=== PATIENT | female | born 1955 | race Two or more races ===

== ENCOUNTER → 2016-11-26 | Outpatient (CLI) | payer BC ==
[2016-11-26 09:14] LABS: ABSOLUTE EOSINOPHILS # (AUTO) 0.6 10^3/uL (0.0-0.6); ABSOLUTE LYMPHOCYTES (AUTO) 2.6 10^3/uL (0.5-4.7); ABSOLUTE MONOCYTES (AUTO) 0.7 10^3/uL (0.1-1.4); ABSOLUTE NEUT (AUTO) 5.6 10^3/uL (1.7-8.2); BASOPHILS % (AUTO) 0.5 % (0-2); EOSINOPHILS % (AUTO) 5.8 % (0-6); HEMATOCRIT 36.6 % (36.0-47.0); HEMOGLOBIN 12.3 g/dL (12.0-15.5); HGB HCT DIFFERENCE 0.3; LYMPHOCYTES % (AUTO) 27.1 % (13-45); MEAN CORPUSCULAR HEMOGLOBIN 27.7 pg (27.0-33.4); MEAN CORPUSCULAR HGB CONC 33.5 g/dL (32.0-36.0); MEAN CORPUSCULAR VOLUME 83 fl (80-97); MONOCYTES % (AUTO) 7.8 % (3-13); RED BLOOD COUNT 4.42 10^6/uL (3.72-5.28); RED CELL DISTRIBUTION WIDTH 14.1 % (11.5-14.0); SEGMENTED NEUTROPHILS % (AUTO) 58.8 % (42-78); WHITE BLOOD COUNT 9.5 10^3/uL (4.0-10.5)
[2016-11-26 09:30] LABS: ALANINE AMINOTRANSFERASE 41 U/L (9-52); ALBUMIN 2.9 g/dL (3.5-5.0); ALKALINE PHOSPHATASE 154 U/L (38-126); ANION GAP 6 (5-19); ASPARTATE AMINO TRANSFERASE 26 U/L (14-36); BILIRUBIN,DIRECT 0.3 mg/dL (0.0-0.4); BILIRUBIN,TOTAL 0.4 mg/dL (0.2-1.3); BLOOD UREA NITROGEN 19 mg/dL (7-20); CALCIUM 8.9 mg/dL (8.4-10.2); CARBON DIOXIDE 31 mmol/L (22-30); CHLORIDE 103 mmol/L (98-107); CREATININE RESULT 1.13 mg/dL (0.52-1.25); Direct HDL 36 mg/dL (>40); GLUCOSE 254 mg/dL (75-110); SODIUM 139.7 mmol/L (137-145); TOTAL PROTEIN 6.5 g/dL (6.3-8.2)
[2016-11-26 09:41] LABS: DIRECT LDL 33 mg/dL (<100)
[2016-11-26 09:43] LABS: TRIGLYCERIDES 868 mg/dL (<150)
== END ==
LOC: OD 07:57
PROVIDERS: ATTEND Internal Medicine Geriatric Medicine
DX: E11.65 Type 2 diabetes mellitus with hyperglycemia (principal); E78.5 Hyperlipidemia, unspecified; I10 Essential (primary) hypertension
CPT/HCPCS: 36415; 80053; 80061; 85025

== ENCOUNTER 2018-02-06 22:09 | Emergency (ER) | payer BC ==
[2018-02-06] MEDS ORDERED: PREDNISONE 20 MG TABLET PO ONE (22:43)
[2018-02-06] MEDS ORDERED: RANITIDINE HCL SYRUP 150 MG/10 ML UDCUP PO ONE (22:43)
--- NOTE | 2018-02-06 22:44 | ER Document Report ---
ED Medical Screen (RME) - General Chief Complaint: Allergic Reaction Stated Complaint: POSSIBLE ALLERGIC REACTION Time Seen by Provider: 02/06/18 22:39 Notes: Patient was eating crabs at her house and approximately 8 PM an hour afterwards started having itching diffusely throughout her body especially on her scalp and face. Patient took 2 Benadryl approximately 30-45 minutes ago. She continues to have itching. She does have small welts on her upper bilateral extremities and her face suggestive of urticaria. She denies any tongue or lip swelling she denies any problems breathing or swallowing. She has never had this reaction before after eating crabs and cannot contributed to anything else. She has never experienced this type of reaction in the past with anything. I have greeted and performed a rapid initial assessment of this patient. A comprehensive ED assessment and evaluation of the patient, analysis of test results and completion of the medical decision making process will be conducted by additional ED providers. PHYSICAL EXAMINATION: GENERAL: Well-appearing, well-nourished and in mild distress, anxious. HEAD: Atraumatic, normocephalic. HEENT: Multiple areas of non-confluent urticaria on face. No swelling of tongue or lips with normal posterior oropharynx. EYES: Pupils equal round extraocular movements intact, conjunctiva are normal. ENT: Nares patent NECK: Normal range of motion LUNGS: No respiratory distress, no stridor or increased work of breathing Musculoskeletal: Normal range of motion NEUROLOGICAL: Normal speech, normal gait. PSYCH: Normal mood, normal affect. SKIN: Non-confluent small urticarial papules on face and upper bilateral extremities. TRAVEL OUTSIDE OF THE [place] IN LAST 30 DAYS: No - Related Data Allergies/Adverse Reactions: saxagliptin [Saxagliptin] Allergy (Intermediate, Verified 04/20/14 10:17) itching Past Medical History - Past Medical History Cardiac Medical History: Reports: Hx Hypercholesterolemia, Hx Hypertension Denies: Hx Heart Attack Pulmonary Medical History: Denies: Hx Asthma Neurological Medical History: Denies: Hx Cerebrovascular Accident, Hx Seizures Endocrine Medical History: Reports: Hx Diabetes Mellitus Type 1, Hx Diabetes Mellitus Type 2 GI Medical History: Reports: Hx Gastroesophageal Reflux Disease. Denies: Hx Hepatitis, Hx Hiatal Hernia, Hx Ulcer Psychiatric Medical History: Denies: Hx Depression Infectious Medical History: Denies: Hx Hepatitis Past Surgical History: Reports: Hx Abdominal Surgery - cholecystectomy, Hx Gynecologic Surgery - Ectopic . Denies: Hx Hysterectomy, Hx Mastectomy , Hx Open Heart Surgery, Hx Pacemaker - Immunizations Hx Diphtheria, Pertussis, Tetanus Vaccination: Yes Physical Exam - Vital signs Vitals: Temp Pulse Resp BP Pulse Ox 98.6 F 120 H 20 112/77 100 02/06/18 22:14 02/06/18 22:14 02/06/18 22:14 02/06/18 22:14 02/06/18 22:14 Course - Vital Signs Vital signs: Temp Pulse Resp BP Pulse Ox 98.6 F 120 H 20 112/77 100 02/06/18 22:14 02/06/18 22:14 02/06/18 22:14 02/06/18 22:14 02/06/18 22:14 Doctor's Discharge - Discharge Referrals: BRENT ALVAREZ MD [Primary Care Provider] - Follow up as needed
[2018-02-06] MEDS ORDERED: FAMOTIDINE 20 MG TABLET PO ONE (22:55)
[2018-02-06] MEDS ORDERED: EPINEPHRINE INJ/PF 1 MG/1 ML AMPULE IM ONE (23:51)
--- NOTE | 2018-02-07 00:04 | ER Document Report ---
ED Allergic Reaction - General Chief Complaint: Allergic Reaction Stated Complaint: POSSIBLE ALLERGIC REACTION Time Seen by Provider: 02/06/18 22:39 Notes: Patient is a 62-year-old female that comes to the emergency department for chief complaint of allergic reaction. She states she was eating crab and shortly afterwards she broke out into a rash mainly on her face and chest, also she had a lot of itching over her scalp. She states that she got a weird sensation in her throat a little while after she took the Benadryl but states that she did not have any trouble swallowing, she swallowed pills at home and here without any difficulty. She denies difficulty breathing or passing out. She took 50 mg of Benadryl, she was given 60 mg of prednisone and Pepcid along with Zantac in triage. She still has the rash on her face and a lot of itching. She denies history of the same. TRAVEL OUTSIDE OF THE [place] IN LAST 30 DAYS: No - Related Data Allergies/Adverse Reactions: saxagliptin [Saxagliptin] Allergy (Intermediate, Verified 04/20/14 10:17) itching Past Medical History - General Information source: Patient - Social History Smoking Status: Never Smoker Frequency of alcohol use: None Drug Abuse: None Lives with: Family Family History: CAD, Malignancy - mother ovarian cancer, Other - Dad- [place] @ 55 - Past Medical History Cardiac Medical History: Reports: Hx Hypercholesterolemia, Hx Hypertension Denies: Hx Heart Attack Pulmonary Medical History: Denies: Hx Asthma Neurological Medical History: Denies: Hx Cerebrovascular Accident, Hx Seizures Endocrine Medical History: Reports: Hx Diabetes Mellitus Type 2 GI Medical History: Reports: Hx Gastroesophageal Reflux Disease. Denies: Hx Hepatitis, Hx Hiatal Hernia, Hx Ulcer Psychiatric Medical History: Denies: Hx Depression Infectious Medical History: Denies: Hx Hepatitis Past Surgical History: Reports: Hx Abdominal Surgery - cholecystectomy, Hx Gynecologic Surgery - Ectopic . Denies: Hx Hysterectomy, Hx Mastectomy , Hx Open Heart Surgery, Hx Pacemaker - Immunizations Hx Diphtheria, Pertussis, Tetanus Vaccination: Yes Hx Pneumococcal Vaccination: 11/28/12 Review of Systems - Review of Systems Constitutional: No symptoms reported EENT: See HPI Cardiovascular: No symptoms reported Respiratory: No symptoms reported Gastrointestinal: No symptoms reported Genitourinary: No symptoms reported Female Genitourinary: No symptoms reported Musculoskeletal: No symptoms reported Skin: See HPI Hematologic/Lymphatic: No symptoms reported Neurological/Psychological: No symptoms reported Physical Exam - Vital signs Vitals: Temp Pulse Resp BP Pulse Ox 98.6 F 120 H 20 112/77 100 02/06/18 22:14 02/06/18 22:14 02/06/18 22:14 02/06/18 22:14 02/06/18 22:14 - Notes Notes: GENERAL: Alert, interacts well. No acute distress. HEAD: Normocephalic, atraumatic. EYES: Pupils equal, round, and reactive to light. Extraocular movements intact. ENT: Oral mucosa moist, tongue midline. Oropharyngeal exam is unremarkable, patent airway NECK: Full range of motion. Supple. Trachea midline. LUNGS: Clear to auscultation bilaterally, no wheezes, rales, or rhonchi. No respiratory distress. HEART: Regular rate and rhythm. No murmur ABDOMEN: Soft, non-tender. Non-distended. Bowel sounds present in all 4 quadrants. EXTREMITIES: Moves all 4 extremities spontaneously. No edema, normal radial and dorsalis pedis pulses bilaterally. No cyanosis. BACK: no cervical, thoracic, lumbar midline tenderness. No saddle anesthesia, normal distal neurovascular exam. NEUROLOGICAL: Alert and oriented x3. Normal speech. [cranial nerves II through XII grossly intact]. PSYCH: Normal affect, normal mood. SKIN: Urticaria noted including over the neck, chest, back, and over the face Course - Re-evaluation Re-evalutation: Patient is not tachycardic on my exam but she does have urticaria including over the face. Oral pharyngeal exam and lung exam are unremarkable. Because of the widespread rash, no improvement with antihistamines and steroids, patient was given epinephrine. Resolution of the rash occurred. Patient monitored for over 2 hours with no additional symptoms. Patient did not have anaphylaxis. Patient is requesting to go home. She declines steroids, she states she will take antihistamines, these were prescribed. Discussed close follow-up and return precautions. Patient states she return immediately if she has any return of symptoms. Stable at time of discharge. - Vital Signs Vital signs: Temp Pulse Resp BP Pulse Ox 97.8 F 120 H 18 146/65 H 98 02/07/18 02:01 02/06/18 22:14 02/07/18 02:01 02/07/18 02:01 02/07/18 02:01 Discharge - Discharge Clinical Impression: Urticaria Allergic reaction Qualifiers: Encounter type: initial encounter Qualified Code(s): T78.40XA - Allergy, unspecified, initial encounter Condition: Stable Disposition: HOME, SELF-CARE Additional Instructions: Your evaluation is consistent with an allergic reaction causing hives. Take the Zyrtec and Pepcid antihistamines for the next week. Follow-up with primary care for additional evaluation and management. I recommend that you avoid crab and probably shellfish. Return if you worsen in anyway including returned rash, difficulty breathing or swallowing, or any other concerning symptoms. Prescriptions: Cetirizine HCl [Zyrtec 10 mg Tablet] 1 tab PO DAILY #30 tablet Famotidine [Pepcid 20 mg Tablet] 20 mg PO DAILY #12 tablet Forms: Treatment of Relative/Child Referrals: BRENT ALVAREZ MD [Primary Care Provider] - Follow up as needed
[2018-02-07 02:05] VITALS: BP 146/65
== END 2018-02-07 02:02 | disposition home or self-care (01) ==
LOC: ER 22:09
DX: L50.0 Allergic urticaria (principal); I10 Essential (primary) hypertension; E11.9 Type 2 diabetes mellitus without complications; Z88.8 Allergy status to other drugs, medicaments and biological substances
CPT/HCPCS: 99283; 96372; J0171; J7512

== ENCOUNTER 2019-01-30 19:19 | Inpatient (IN) | payer SELFPAY ==
--- NOTE | 2019-01-30 20:07 | ER Document Report ---
ED Medical Screen (RME) - General Chief Complaint: Shortness Of Breath Stated Complaint: SHORTNESS OF BREATH Time Seen by Provider: 01/30/19 19:55 Primary Care Provider: BRENT ALVAREZ MD [Primary Care Provider] - Follow up as needed Notes: Patient is a 63-year-old female who presents to the emergency department with a chief complaint of shortness of breath. She states that 2 weeks ago she was in [place] went to the emergency department and was diagnosed with bilateral pleural effusions and a 9 mm pulmonary nodule in the right middle lobe per CT of the chest. Patient states that when she is sitting she does not feel short of breath, but when she is walking she feels worse and more short of breath. Patient has a past medical history of hypertension, hyperlipidemia, diabetes, and stage IV chronic kidney disease. Exam: Crackles in the bases. Patient's oxygen saturation is 90% on room air. She does not wear oxygen at home and she denies tobacco use. I have greeted and performed a rapid initial assessment of this patient. A comprehensive ED assessment and evaluation of the patient, analysis of test results and completion of medical decision making process will be conducted by an additional ED providers. TRAVEL OUTSIDE OF THE [place] IN LAST 30 DAYS: No - Related Data Allergies/Adverse Reactions: saxagliptin [Saxagliptin] Allergy (Intermediate, Verified 04/20/14 10:17) itching Past Medical History - Past Medical History Cardiac Medical History: Reports: Hx Hypercholesterolemia, Hx Hypertension Denies: Hx Heart Attack Pulmonary Medical History: Denies: Hx Asthma Neurological Medical History: Denies: Hx Cerebrovascular Accident, Hx Seizures Endocrine Medical History: Reports: Hx Diabetes Mellitus Type 1, Hx Diabetes Mellitus Type 2 Renal/ Medical History: Denies: Hx Peritoneal Dialysis GI Medical History: Reports: Hx Gastroesophageal Reflux Disease. Denies: Hx Hepatitis, Hx Hiatal Hernia, Hx Ulcer Psychiatric Medical History: Denies: Hx Depression Infectious Medical History: Denies: Hx Hepatitis Past Surgical History: Reports: Hx Abdominal Surgery - cholecystectomy, Hx Gynecologic Surgery - Ectopic . Denies: Hx Hysterectomy, Hx Mastectomy, Hx Open Heart Surgery, Hx Pacemaker - Immunizations Hx Diphtheria, Pertussis, Tetanus Vaccination: Yes Physical Exam - Vital signs Vitals: Temp Pulse Resp BP Pulse Ox 98.6 F 77 18 142/52 H 92 01/30/19 19:27 01/30/19 19:27 01/30/19 19:27 01/30/19 19:27 01/30/19 19:27 Course - Vital Signs Vital signs: Temp Pulse Resp BP Pulse Ox 98.6 F 77 18 142/52 H 92 01/30/19 19:27 01/30/19 19:27 01/30/19 19:27 01/30/19 19:27 01/30/19 19:27 Doctor's Discharge - Discharge Referrals: BRENT ALVAREZ MD [Primary Care Provider] - Follow up as needed
[2019-01-30 20:46] LABS: ABSOLUTE BASOPHILS # (AUTO) 0.1 10^3/uL (0.0-0.2); ABSOLUTE EOSINOPHILS # (AUTO) 0.5 10^3/uL (0.0-0.6); ABSOLUTE LYMPHOCYTES (AUTO) 1.8 10^3/uL (0.5-4.7); ABSOLUTE MONOCYTES (AUTO) 0.7 10^3/uL (0.1-1.4); ABSOLUTE NEUT (AUTO) 7.4 10^3/uL (1.7-8.2); BASOPHILS % (AUTO) 0.8 % (0-2); EOSINOPHILS % (AUTO) 4.6 % (0-6); HEMATOCRIT 27.4 % (36.0-47.0); LYMPHOCYTES % (AUTO) 17.1 % (13-45); MEAN CORPUSCULAR VOLUME 85 fl (80-97); MONOCYTES % (AUTO) 6.6 % (3-13); PLATELET COUNT 236 10^3/uL (150-450); RED BLOOD COUNT 3.22 10^6/uL (3.72-5.28); RED CELL DISTRIBUTION WIDTH 14.6 % (11.5-14.0); SEGMENTED NEUTROPHILS % (AUTO) 70.9 % (42-78); TOTAL CELLS COUNTED % (AUTO) 100 %; WHITE BLOOD COUNT 10.4 10^3/uL (4.0-10.5)
--- NOTE | 2019-01-30 21:14 | RADIOLOGY REPORT (SQ) ---
EXAM DESCRIPTION: XR CHEST 1 VIEW COMPLETED DATE/TME: 01/30/2019 20:04 CLINICAL HISTORY: 63 years, Female, shortness of breath COMPARISON: EXAM DESCRIPTION: CLINICAL HISTORY: shortness of breath COMPARISON: 08/13/2015 FINDINGS: Single view of the chest is submitted. There are bilateral moderate pleural effusions with consolidation and atelectasis E: Base. The heart is largely secured. The upper lungs are clear. No pneumothorax. IMPRESSION: Bilateral pleural effusions and consolidations.
[2019-01-30 21:24] LABS: ALBUMIN 3.3 g/dL (3.5-5.0); ALKALINE PHOSPHATASE 144 U/L (38-126); ANION GAP 13 (5-19); ASPARTATE AMINO TRANSFERASE 29 U/L (14-36); BILIRUBIN,DIRECT 0.2 mg/dL (0.0-0.4); BILIRUBIN,TOTAL 0.2 mg/dL (0.2-1.3); BLOOD UREA NITROGEN 45 mg/dL (7-20); CALCIUM 8.3 mg/dL (8.4-10.2); CARBON DIOXIDE 15 mmol/L (22-30); CHLORIDE 111 mmol/L (98-107); CREATINE KINASE 50 U/L (30-135); GLUCOSE 218 mg/dL (75-110); POTASSIUM 5.7 mmol/L (3.6-5.0); TOTAL PROTEIN 6.5 g/dL (6.3-8.2)
[2019-01-30 21:31] LABS: CREATINE KINASE MB 0.29 ng/mL (<4.55); NT PRO BNP 1320 pg/mL (5-900)
[2019-01-30 21:36] LABS: TROPONIN I < 0.012 ng/mL
[2019-01-30] MEDS ORDERED: FUROSEMIDE INJ/PF 40 MG/4 ML SDV IV ONE (22:30)
--- NOTE | 2019-01-30 22:32 | ER Document Report ---
ED General - General Chief Complaint: Shortness Of Breath Stated Complaint: SHORTNESS OF BREATH Time Seen by Provider: 01/30/19 19:55 TRAVEL OUTSIDE OF THE [place] IN LAST 30 DAYS: No - HPI Notes: 63-year-old female with a history of stage IV kidney disease, hypertension and diabetes presents with dyspnea. Patient describes 2 or 3 weeks of increasingly severe dyspnea, especially on exertion. Now has rest dyspnea and orthopnea. She was seen in outside emergency department [place] 2 weeks ago, states that she was told she had fluid in her lungs, pulmonary nodules and kidney failure. Ultimately followed up with her primary care doctor, was refer referred to a local charge coordinator with whom she met earlier this week and indicated they wanted to obtain a kidney biopsy, but that she would require dialysis. No fever, chills or sweats. She has had a cough for approximate 1 month. Does not travel to the [facility] or outside the country for at least 10 years. No unplanned weight loss and in fact has had a 10 or 11 pound weight gain over the last month. Moderate intensity, gradual onset, nonradiating. No other modifying factors, no other associated symptoms, no other provocative or palliative factors. - Related Data Allergies/Adverse Reactions: saxagliptin [Saxagliptin] Allergy (Intermediate, Verified 04/20/14 10:17) itching Past Medical History - Social History Smoking Status: Never Smoker Chew tobacco use (# tins/day): No Frequency of alcohol use: None Drug Abuse: None Family History: CAD, Malignancy - mother ovarian cancer, Other - Dad- [place] @ 55 Patient has suicidal ideation: No Patient has homicidal ideation: No - Medical History Notes: Includes stage IV kidney disease - Past Medical History Cardiac Medical History: Reports: Hx Hypercholesterolemia, Hx Hypertension Denies: Hx Heart Attack Pulmonary Medical History: Denies: Hx Asthma Neurological Medical History: Denies: Hx Cerebrovascular Accident, Hx Seizures Endocrine Medical History: Reports: Hx Diabetes Mellitus Type 1, Hx Diabetes Mellitus Type 2 Renal/ Medical History: Denies: Hx Peritoneal Dialysis GI Medical History: Reports: Hx Gastroesophageal Reflux Disease. Denies: Hx Hepatitis, Hx Hiatal Hernia, Hx Ulcer Psychiatric Medical History: Denies: Hx Depression Infectious Medical History: Denies: Hx Hepatitis Past Surgical History: Reports: Hx Abdominal Surgery - cholecystectomy, Hx Gynecologic Surgery - Ectopic . Denies: Hx Hysterectomy, Hx Mas tectomy, Hx Open Heart Surgery, Hx Pacemaker - Immunizations Hx Diphtheria, Pertussis, Tetanus Vaccination: Yes Hx Pneumococcal Vaccination: 11/28/12 Review of Systems - Review of Systems Notes: Review of systems as in the history of present illness, otherwise negative x 10 systems. Physical Exam - Vital signs Vitals: Temp Pulse Resp BP Pulse Ox 98.6 F 77 18 142/52 H 92 01/30/19 19:27 01/30/19 19:27 01/30/19 19:27 01/30/19 19:27 01/30/19 19:27 - Notes Notes: General: Well developed . Chronically ill in appearance HEENT: Normocephalic, atraumatic. Pupils equal round reactive to light. No JVD. Chest: No trauma. Respiratory: Scattered crackles throughout the upper half of all lung sanon. Fair air exchange. Cardiac: Regular rhythm. No murmurs or gallops. Abdomen: Soft, benign. Nondistended. Nontender. Back: No asymmetry or gross abnormality. Motor: Grossly normal power and tone. Neurologic: Alert, nonfocal. Cranial nerves II-12 are intact. Sensation intact. Vascular: Well perfused. Normal peripheral pulses. Skin: No petechiae or purpura. Course - Vital Signs Vital signs: Temp Pulse Resp BP Pulse Ox 98.6 F 77 27 H 159/66 H 95 01/30/19 19:27 01/30/19 19:27 01/30/19 22:02 01/30/19 22:02 01/30/19 22:02 - Laboratory Result Diagrams: 01/30/19 20:15 01/30/19 20:15 Laboratory results interpreted by me: 01/30/19 01/30/19 01/30/19 20:15 20:15 20:15 RBC 3.22 L Hgb 9.0 L Hct 27.4 L RDW 14.6 H Potassium 5.7 H Chloride 111 H Carbon Dioxide 15 L BUN 45 H Creatinine 4.24 H Est GFR ( Amer) 13 L Est GFR (Non-Af Amer) 11 L Glucose 218 H Calcium 8.3 L Alkaline Phosphatase 144 H NT-Pro-B Natriuret Pep 1320 H Albumin 3.3 L - Transfer of Care Notes: 01/30/19 22:38 63-year-old female who presents with worsening dyspnea and the after mentioned symptoms, appears to have evidence of volume overload. Certainly concern over w orsening renal failure and attendant metabolic complications Patient was evaluated by the [facility] provider prior to my evaluation. Studies / interventions have been ordered by this provider. Labs reviewed. CBC unremarkable. Chemistries show elevated potassium at 5.7. Bicarb depressed at 15. Troponin normal Chest x-ray shows moderate to large pleural effusions bilaterally. I was able to review some records provided by the patient showing a CTA and VQ scan done at the outside hospital [place]. There was no evidence of pulmonary embolus and at that time. She has additional labs which I do not have access to. Will attempt to obtain old records. Otherwise patient has a worsening metabolic acidosis, acute hyperkalemia, and clinical evidence of volume overload. Case is discussed with the on-call physician Dr. Blanco who will admit her for further evaluation and management. At his request I have consulted nephrology who I am told are available tomorrow. Patient was given IV Lasix at the request of Dr. Blanco. Discharge - Discharge Clinical Impression: Hyperkalemia Condition: Serious Disposition: ADMITTED INPATIENT Admitting Provider: [facility] Unit Admitted: [facility]
[2019-01-30] MEDS ORDERED: ACETAMINOPHEN 325 MG TABLET PO PRN (22:35)
[2019-01-30] MEDS ORDERED: IPRATROPIUM/ALBUTEROL 0.5-2.5 MG/3 ML AMPUL NEB PRN (22:35)
[2019-01-30] MEDS ORDERED: DEXTROSE 40% GEL 15 GM TUBE PO PRN ×4 (22:46→22:47)
[2019-01-30] MEDS ORDERED: DEXTROSE 50%-WATER 25 GM/50 ML DISP.SYRIN IV PRN ×4 (22:46→22:47)
[2019-01-30] MEDS ORDERED: GLUCAGON,HUMAN RECOMB 1 MG INJ IM PRN ×2 (22:46→22:47)
[2019-01-30] MEDS ORDERED: HYDRALAZINE HCL INJ/PF 20 MG/1 ML SDV IV PRN (22:48)
[2019-01-30] MEDS ORDERED: SODIUM POLYSTYRENE SULFONATE 15 GM/60 ML PO ONE (23:59)
[2019-01-30] MEDS ORDERED: CALCIUM GLUCONATE 1000 MG/10 ML INJ IV ONE (23:59)
[2019-01-31 04:42] LABS: ABSOLUTE EOSINOPHILS # (AUTO) 0.5 10^3/uL (0.0-0.6); ABSOLUTE LYMPHOCYTES (AUTO) 2.1 10^3/uL (0.5-4.7); ABSOLUTE MONOCYTES (AUTO) 0.7 10^3/uL (0.1-1.4); ABSOLUTE NEUT (AUTO) 5.5 10^3/uL (1.7-8.2); BASOPHILS % (AUTO) 0.4 % (0-2); HEMATOCRIT 27.8 % (36.0-47.0); HEMOGLOBIN 9.1 g/dL (12.0-15.5); LYMPHOCYTES % (AUTO) 23.3 % (13-45); MEAN CORPUSCULAR HEMOGLOBIN 27.7 pg (27.0-33.4); MEAN CORPUSCULAR HGB CONC 32.8 g/dL (32.0-36.0); MEAN CORPUSCULAR VOLUME 85 fl (80-97); MONOCYTES % (AUTO) 7.5 % (3-13); PLATELET COUNT 227 10^3/uL (150-450); RED BLOOD COUNT 3.29 10^6/uL (3.72-5.28); RED CELL DISTRIBUTION WIDTH 14.8 % (11.5-14.0); SEGMENTED NEUTROPHILS % (AUTO) 62.8 % (42-78); TOTAL CELLS COUNTED % (AUTO) 100 %; WHITE BLOOD COUNT 8.8 10^3/uL (4.0-10.5)
[2019-01-31 05:11] LABS: ANION GAP 10 (5-19); BLOOD UREA NITROGEN 43 mg/dL (7-20); CALCIUM 8.9 mg/dL (8.4-10.2); CARBON DIOXIDE 19 mmol/L (22-30); CHLORIDE 113 mmol/L (98-107); GLUCOSE 112 mg/dL (75-110)
[2019-01-31] MEDS: FUROSEMIDE INJ/PF 20 MG/2 ML SDV IV SCH ×3 (05:33→21:29)
[2019-01-31] MEDS: HEPARIN SOD (PORCINE) 5,000 UNIT/ML 1 ML VIAL SUBCUT SCH ×3 (05:33→21:28)
--- NOTE | 2019-01-31 06:42 | EKG REPORT ---
SEVERITY:- BORDERLINE ECG - SINUS RHYTHM BORDERLINE R WAVE PROGRESSION, ANTERIOR LEADS : Confirmed by: Ruddy Mcallister MD 31-Jan-2019 06:41:33
[2019-01-31] MEDS: INSULIN LISPRO 100 UNIT/ML 3 ML VIAL SUBCUT SCH ×4 (08:00→21:29)
[2019-01-31] MEDS: DOCUSATE SODIUM 100 MG CAPSULE PO SCH ×2 (10:14→18:40)
--- NOTE | 2019-01-31 16:04 | PDOC CONSULTATION ---
Consultation Consult Date: 01/31/19 Provider Consulted: Dre HUA Consult reason:: MARIAJOSE on CKD 4 History of Present Illness Admission Date/PCP: 01/30/19 22:35 BRENT ALVAREZ History of Present Illness: SHAILESH SALINAS I is a 63 year old [place] female with a long-standing history of poorly controlled diabetes mellitus, hypertension, hyperlipidemia, obstructive sleep apnea, nephrotic syndrome was admitted with history of progressive shortness of breath on exertion. She denies any history of chest pains. She has been living in [place] for the last 20+ years. She saw Dr. Clark around [id number] for nephrotic syndrome with a general range of around 6000 mg per 24 hours. Advised renal biopsy to confirm whether it was diabetic nephropathy or whether there was any nephritis. Patient refused to have the biopsy. She was then lost to follow-up. Approximately 2 weeks ago she went to [place] to visit her ex- and was hospitalized there for apparently shortness of breath. This patient is finally began to see Dr. Clark's on the eighth of this month after long hiatus from 2015. As per the son who are accompanied his mother, the patient had multiple tests which included a CT angiogram, echo prior to her discharge. At that time her in hospital BUN/creatinine was 59/4.3. I am unsure if these labs were done before or after the CT angiogram. Her BUN/creatinine June 2017 was 25/1.2. Patient feels somewhat better since hospitalization. She can admits to having generalized edema. No history of being on any NSAIDs. She has alteration of bowels.Labs and medications were reviewed. She has been begun on IV Lasix. Chest x-ray shows bilateral effusions with possible bilateral consolidation. Past Medical History Cardiac Medical History: Reports: Hyperlipidemia, Hypertension-primary Denies: Myocardial Infarction Pulmonary Medical History: Reports: Sleep Apnea Denies: Asthma Neurological Medical History: Denies: Seizures Endocrine Medical History: Reports: Diabetes Mellitus Type 2 Renal/ Medical History: Reports: Chronic Kidney Disease Stage IV, Secondary Hyperparathyroidism GI Medical History: Reports: Gastroesophageal Reflux Disease Denies: Hepatitis, Hiatal Hernia Psychiatric Medical History: Denies: Depression Past Surgical History Past Surgical History: Denies: Hysterectomy, Mastectomy, Pacemaker Social History Smoking Status: Never Smoker Frequency of Alcohol Use: None Hx Recreational Drug Use: No Drugs: None Hx Prescription Drug Abuse: No - Advance Directive Resuscitation Status: Full Code Family History Parental Family History Reviewed: Yes - Negative for ESRD Children Family History Reviewed: No Sibling(s) Family History Reviewed.: No Medication/Allergy Home Medications: Metoprolol Succinate [Toprol Xl] 50 mg PO DAILY 11/28/12 Folic Acid/Multivit-Min/Lutein [Centrum Silver Chewable Tablet] 1 tab.chew PO DAILY 04/15/14 Atorvastatin Calcium [Lipitor 40 mg Tablet] 40 mg PO DAILY #0 tablet 08/14/15 Amlodipine Besylate [Norvasc 10 mg Tablet] 10 mg PO DAILY 01/31/19 Amox Tr/Potassium Clavulanate [Augmentin 500-125 Tablet] 1 tab PO Q12 01/31/19 Aspirin [Ecotrin 81 mg EC Tablet] 81 mg PO DAILY 01/31/19 Benzonatate [Tessalon Perles 100 mg Capsule] 100 mg PO Q8HP PRN 01/31/19 Ranitidine HCl 150 mg PO BID 01/31/19 Terazosin HCl [Hytrin] 5 mg PO QHS 01/31/19 Allergies/Adverse Reactions: crab Allergy (Intermediate, Verified 01/31/19 04:24) saxagliptin [Saxagliptin] Allergy (Intermediate, Verified 04/20/14 10:17) itching Review of Systems Constitutional: PRESENT: anorexia, fatigue, weakness. ABSENT: chills, fever(s), headache(s), night sweats Ears: ABSENT: hearing changes Nose, Mouth, and Throat: ABSENT: mouth pain, sore throat Cardiovascular: PRESENT: dyspnea on exertion, edema. ABSENT: chest pain, orthr opnea, palpitations Respiratory: PRESENT: dyspnea. ABSENT: cough, hemoptysis Gastrointestinal: PRESENT: constipation, diarrhea. ABSENT: abdominal pain, coffee ground emesis, dysphagia, heartburn, hematemesis, hematochezia Genitourinary: ABSENT: difficulty urinating, dysuria, hematuria Musculoskeletal: ABSENT: deformity, joint swelling Integumentary: ABSENT: erythema, lesions, pruritus, rash Neurological: PRESENT: numbness. ABSENT: abnormal speech, confusion, convulsions, focal weakness, frequent falls Endocrine: ABSENT: heat intolerance, polydipsia Hematologic/Lymphatic: ABSENT: easy bleeding, easy bruising, lymphadenopathy Physical Exam Vital Signs: Temp Pulse Resp BP Pulse Ox 98.9 F 72 16 155/59 H 96 01/31/19 10:53 01/31/19 13:26 01/31/19 13:26 01/31/19 10:53 01/31/19 13:26 Intake & Output 01/30/19 01/31/19 02/01/19 06:59 06:59 06:59 Intake Total 180 560 Output Total 800 Balance -620 560 Weight 78.5 kg General appearance: PRESENT: no acute distress Eye exam: PRESENT: EOMI, PERRLA Mouth exam: PRESENT: moist, neck supple Neck exam: ABSENT: lymphadenopathy, meningismus, tenderness, thyromegaly, tracheal deviation Respiratory exam: PRESENT: clear to auscultation marge, decreased breath sounds. ABSENT: crackles Cardiovascular exam: PRESENT: +S1, +S2 GI/Abdominal exam: PRESENT: normal bowel sounds, soft. ABSENT: organomegaly, tenderness Extremities exam: PRESENT: +1 edema Neurological exam: PRESENT: alert, awake, oriented to person, oriented to place, oriented to time Skin exam: PRESENT: rash. ABSENT: cyanosis, erythema, mottled Results Laboratory Results: 01/31/19 03:58 01/31/19 03:58 01/30/19 01/30/19 01/31/19 20:15 20:15 03:58 WBC 10.4 8.8 RBC 3.22 L 3.29 L Hgb 9.0 L 9.1 L Hct 27.4 L 27.8 L MCV 85 85 MCH 28.0 27.7 MCHC 33.0 32.8 RDW 14.6 H 14.8 H Plt Count 236 227 Seg Neutrophils % 70.9 62.8 Lymphocytes % 17.1 23.3 Monocytes % 6.6 7.5 Eosinophils % 4.6 6.0 Basophils % 0.8 0.4 Absolute Neutrophils 7.4 5.5 Absolute Lymphocytes 1.8 2.1 Absolute Monocytes 0.7 0.7 Absolute Eosinophils 0.5 0.5 Absolute Basophils 0.1 0.0 Sodium 138.8 Potassium 5.7 H Chloride 111 H Carbon Dioxide 15 L Anion Gap 13 BUN 45 H Creatinine 4.24 H Est GFR ( Amer) 13 L Est GFR (Non-Af Amer) 11 L Glucose 218 H Calcium 8.3 L Magnesium 2.0 Total Bilirubin 0.2 AST 29 Alkaline Phosphatase 144 H Total Protein 6.5 Albumin 3.3 L 01/31/19 03:58 WBC RBC Hgb Hct MCV MCH MCHC RDW Plt Count Seg Neutrophils % Lymphocytes % Monocytes % Eosinophils % Basophils % Absolute Neutrophils Absolute Lymphocytes Absolute Monocytes Absolute Eosinophils Absolute Basophils Sodium 141.6 Potassium 5.0 Chloride 113 H Carbon Dioxide 19 L Anion Gap 10 BUN 43 H Creatinine 4.18 H Est GFR ( Amer) 13 L Est GFR (Non-Af Amer) 11 L Glucose 112 H Calcium 8.9 Magnesium Total Bilirubin AST Alkaline Phosphatase Total Protein Albumin 01/30/19 01/30/19 20:15 20:15 Creatine Kinase 50 CK-MB (CK-2) 0.29 Troponin I < 0.012 NT-Pro-B Natriuret Pep 1320 H Impressions: Chest X-Ray 01/30/19 20:04 IMPRESSION: Bilateral pleural effusions and consolidations. Assessment & Plan - Diagnosis (1) MARIAJOSE (acute kidney injury) Plan: Patient has apparently presented in MARIAJOSE stage with a BUN/creatinine around 4-4.5 approximately 2 weeks ago when she was hospitalized in [place]. Presently renal functions seems to be stable compared to her presentation 2 weeks ago. The etiology of this worsening is at the moment indeterminate. The question is whether this is a progressive worsening of her diabetic nephropathy or is there additional disorders like nephritis/contrast nephropathy etc. This is to be determined. Currently she is in fluid overload most likely from her nephrotic syndrome along with bilateral pleural effusions. The pleural effusions with possible consolidation if there is could be a cause of her shortness of breath. Also to be determined is whether she has an element of congestive heart failure which is not very clear on her chest x-ray though. Will treat her conservatively at the moment. I do not see any acute indications for initiation of renal replacements currently. Get additional labs including a renal ultrasound.We will continue to monitor. (2) CKD stage 4 due to type 2 diabetes mellitus Plan: Unsure if the current BUN/creatinine has been present for a while which we do not know as we initially got wind of present renal numbers when she was admitted to [place]. Prior to that she has not been seeing any physicians apparently for a long time. This could very well be diabetic nephropathy given her poorly controlled diabetes mellitus. Watch it carefully. Get additional labs. Monitor. (3) Nephrotic syndrome Plan: Will quantify and monitor. Later consider using a raas vincent at some point once her potassium is better. (4) Renal osteodystrophy Plan: Get labs. (5) Metabolic acidosis Plan: Monitor for now. (6) Anemia Plan: Initiate evaluation and studies. No evidences to indicate GI bleed. (7) Pleural effusion Plan: Need to determine if this is part of nephrotic syndrome or whether that this is a parapneumonic effusion. (8) Hyperkalemia Plan: Presently stable. Monitor. (9) HTN (hypertension) Plan: Lately controlled. Continue titration. Avoid raas vincent for now. (10) Type 2 diabetes mellitus Plan: Was poorly controlled but of lately apparently is getting better.
--- NOTE | 2019-01-31 23:35 | PDOC H&P ---
History of Present Illness Admission Date/PCP: 01/30/19 22:35 BRENT OSSPRINGBuffy Patient complains of: Difficulty with breathing History of Present Illness: SHAILESH SALINAS I is a 63 year old female known to my practice who has been travelling with spouse and missing out on medical follow up for several months. She presented to the ED with worsening difficulty with breathing that progressed over the last two weeks from exertional to at rest. She denied any chest pain, palpitation, or irregular heart beats. She recently diagnosed with renal failure of undetermined duration with elevated serum creatinine, worsening BUN, and eGFR while travelling with spouse in [place]. She was evaluated in the office recently with review of her record from hospitalization in [place] that suggested progressive chronic kidney failure. She represented to the ED with worsening difficulty with breathing. Her initial evaluation did revealed CKD stage 5 with hyperkalemia, bilateral pleural effusion, pulmonary edema, metabolic acidosis. She denied any coughing, fever, chills, nausea, vomiting, or abdominal pain. Her morbidities include hypertension, hyperlipidemia, Diabetes mellitus type 2, and GERD. She was advised hospitalization for further evaluation and management. Past Medical History Cardiac Medical History: Reports: Hyperlipidema, Hypertension Denies: Myocardial Infarction Pulmonary Medical History: Denies: Asthma Neurological Medical History: Denies: Seizures Endocrine Medical History: Reports: Diabetes Mellitus Type 1, Diabetes Mellitus Type 2 GI Medical History: Reports: Gastroesophageal Reflux Disease Denies: Hepatitis, Hiatal Hernia Psychiatric Medical History: Denies: Depression Hematology: Denies: Anemia, Sickle Cell Disease Past Surgical History Past Surgical History: Denies: Amputation, Hysterectomy, Mastectomy, Pacemaker Social History Smoking Status: Never Smoker Frequency of Alcohol Use: None Hx Recreational Drug Use: No Drugs: None Hx Prescription Drug Abuse: No - Advance Directive Resuscitation Status: Full Code Family History Family History: CAD, Malignancy - mother ovarian cancer, Other - Dad- [place] @ 55 Parental Family History Reviewed: Yes Children Family History Reviewed: Yes Sibling(s) Family History Reviewed.: Yes Medication/Allergy Home Medications: Metoprolol Succinate [Toprol Xl] 50 mg PO DAILY 11/28/12 Folic Acid/Multivit-Min/Lutein [Centrum Silver Chewable Tablet] 1 tab.chew PO DAILY 04/15/14 Atorvastatin Calcium [Lipitor 40 mg Tablet] 40 mg PO DAILY #0 tablet 08/14/15 Amlodipine Besylate [Norvasc 10 mg Tablet] 10 mg PO DAILY 01/31/19 Amox Tr/Potassium Clavulanate [Augmentin 500-125 Tablet] 1 tab PO Q12 01/31/19 Aspirin [Ecotrin 81 mg EC Tablet] 81 mg PO DAILY 01/31/19 Benzonatate [Tessalon Perles 100 mg Capsule] 100 mg PO Q8HP PRN 01/31/19 Ranitidine HCl 150 mg PO BID 01/31/19 Terazosin HCl [Hytrin] 5 mg PO QHS 01/31/19 Allergies/Adverse Reactions: crab Allergy (Intermediate, Verified 01/31/19 04:24) saxagliptin [Saxagliptin] Allergy (Intermediate, Verified 04/20/14 10:17) itching Review of Systems Constitutional: PRESENT: as per HPI, fatigue, weakness, weight gain. ABSENT: anorexia, chills, fever(s), headache(s), night sweats Eyes: ABSENT: visual disturbances Ears: ABSENT: hearing changes Nose, Mouth, and Throat: ABSENT: as per HPI, headache(s), mouth pain, sore throat, vertigo, other Cardiovascular: PRESENT: dyspnea on exertion, edema, orthropnea. ABSENT: chest pain, palpitations Respiratory: PRESENT: dyspnea. ABSENT: cough, hemoptysis, sputum Gastrointestinal: ABSENT: abdominal pain, constipation, diarrhea, hematemesis, hematochezia, nausea, vomiting Genitourinary: ABSENT: difficulty urinating, dysuria, hematuria, nocturia Musculoskeletal: ABSENT: joint swelling Integumentary: ABSENT: rash, wounds Neurological: ABSENT: abnormal gait, abnormal speech, confusion, dizziness, focal weakness, syncope Psychiatric: ABSENT: anxiety, depression, homidical ideation, suicidal ideation Endocrine: ABSENT: cold intolerance, heat intolerance, polydipsia, polyuria Hematologic/Lymphatic: ABSENT: easy bleeding, easy bruising, lymphadenopathy Allergic/Immunologic: ABSENT: seasonal rhinorrhea Physical Exam Vital Signs: Temp Pulse Resp BP Pulse Ox 98.6 F 74 22 H 141/50 H 97 01/31/19 03:20 01/31/19 03:20 01/31/19 03:20 01/31/19 03:20 01/31/19 03:20 Intake & Output 01/30/19 01/31/19 02/01/19 06:59 06:59 06:59 Intake Total 180 Output Total 800 Balance -620 Weight 78.5 kg General appearance: PRESENT: mild distress - with shortnerss of breath Head exam: PRESENT: atraumatic, normocephalic Eye exam: PRESENT: conjunctiva pink, EOMI, PERRLA. ABSENT: scleral icterus Ear exam: PRESENT: normal external ear exam Mouth exam: PRESENT: moist Teeth exam: PRESENT: poor dentation Throat exam: ABSENT: post pharyngeal erythema, tonsillar erythema, tonsillar exudate, tonsillogmegaly, other Neck exam: PRESENT: full ROM. ABSENT: carotid bruit, JVD, lymphadenopathy, thyromegaly Respiratory exam: PRESENT: clear to auscultation marge, decreased breath sounds - at lung bases Cardiovascular exam: PRESENT: RRR. ABSENT: diastolic murmur, rubs, systolic murmur Pulses: PRESENT: +1 pedal pulses bilateral Vascular exam: PRESENT: normal capillary refill. ABSENT: pallor GI/Abdominal exam: PRESENT: normal bowel sounds, soft. ABSENT: distended, guarding, mass, organolmegaly, rebound, tenderness Rectal exam: PRESENT: deferred Extremities exam: PRESENT: pedal edema Musculoskeletal exam: PRESENT: deformity - related to joints involvement with arthritis Neurological exam: PRESENT: alert, awake, oriented to person, oriented to place, oriented to time, oriented to situation, CN II-XII grossly intact. ABSENT: motor sensory deficit Psychiatric exam: PRESENT: appropriate affect, normal mood. ABSENT: homicidal ideation, suicidal ideation Skin exam: PRESENT: dry, intact, warm. ABSENT: cyanosis, rash Results Laboratory Results: 01/31/19 03:58 01/31/19 03:58 01/30/19 01/30/19 01/31/19 20:15 20:15 03:58 WBC 10.4 8.8 RBC 3.22 L 3.29 L Hgb 9.0 L 9.1 L Hct 27.4 L 27.8 L MCV 85 85 MCH 28.0 27.7 MCHC 33.0 32.8 RDW 14.6 H 14.8 H Plt Count 236 227 Seg Neutrophils % 70.9 62.8 Lymphocytes % 17.1 23.3 Monocytes % 6.6 7.5 Eosinophils % 4.6 6.0 Basophils % 0.8 0.4 Absolute Neutrophils 7.4 5.5 Absolute Lymphocytes 1.8 2.1 Absolute Monocytes 0.7 0.7 Absolute Eosinophils 0.5 0.5 Absolute Basophils 0.1 0.0 Sodium 138.8 Potassium 5.7 H Chloride 111 H Carbon Dioxide 15 L Anion Gap 13 BUN 45 H Creatinine 4.24 H Est GFR ( Amer) 13 L Est GFR (Non-Af Amer) 11 L Glucose 218 H Calcium 8.3 L Magnesium 2.0 Total Bilirubin 0.2 AST 29 Alkaline Phosphatase 144 H Total Protein 6.5 Albumin 3.3 L 01/31/19 03:58 WBC RBC Hgb Hct MCV MCH MCHC RDW Plt Count Seg Neutrophils % Lymphocytes % Monocytes % Eosinophils % Basophils % Absolute Neutrophils Absolute Lymphocytes Absolute Monocytes Absolute Eosinophils Absolute Basophils Sodium 141.6 Potassium 5.0 Chloride 113 H Carbon Dioxide 19 L Anion Gap 10 BUN 43 H Creatinine 4.18 H Est GFR ( Amer) 13 L Est GFR (Non-Af Amer) 11 L Glucose 112 H Calcium 8.9 Magnesium Total Bilirubin AST Alkaline Phosphatase Total Protein Albumin 01/30/19 01/30/19 20:15 20:15 Creatine Kinase 50 CK-MB (CK-2) 0.29 Troponin I < 0.012 NT-Pro-B Natriuret Pep 1320 H Impressions: Chest X-Ray 01/30/19 20:04 IMPRESSION: Bilateral pleural effusions and consolidations. Assessment & Plan - Diagnosis (1) MARIAJOSE (acute kidney injury) Is this a current diagnosis for this admission?: Yes Plan: Unclear cause of her recent worsening but possible fluid redistribution with bilateral pleural effusion and associated hypotension. We will obtain renal ultrasound and urinalysis for further evaluation. (2) CKD stage 4 due to type 2 diabetes mellitus Is this a current diagnosis for this admission?: Yes Plan: Her record from hospitalizations in [place] suggested CKD that may be due to poorly controlled diabetes mellitus type 2. She was seen recently by Dr Clark, social media editor. I will request inpatient consultation with consideration for any need of replacement therapy. (3) Hyperkalemia Is this a current diagnosis for this admission?: Yes Plan: Patient is showing some improvement since admission and initial treatment. Continue cardiac monitoring and serum potassium level. Avoid NSAID and other medication that can elevated hyperkalemia. (4) Metabolic acidosis Is this a current diagnosis for this admission?: Yes Plan: Probable due to her ongoing renal failure. Continue current management with some improvement. Follow up on nephrology oim consultant input. (5) Pleural effusion Is this a current diagnosis for this admission?: Yes Plan: Patient reported improvement with diuretic treatment and positional adjustment as well as supplemental oxygen usage. Her effusion maybe multi-factorial including cardiac decompensation and renal failure. Her elevated NT-Pro BNP may be worse than suggested due to her renal failure. We will obtain echocardiogram evaluation. (6) Anemia Qualifiers: Anemia type: due to chronic kidney disease Chronic kidney disease stage: stage 4 (severe) Qualified Code(s): N18.4 - Chronic kidney disease, stage 4 (severe); D63.1 - Anemia in chronic kidney disease Is this a current diagnosis for this admission?: Yes Plan: Most likely due to chronic kidney disease. Obtain anemia workup for further insight. No need for transfusion at this time. (7) Type 2 diabetes mellitus Qualifiers: Diabetes mellitus middle or intermediate school principal insulin use: with senior living use Diabetes mellitus complication status: with kidney complications Diabetes mellitus complication detail: with chronic kidney disease Chronic kidney disease stage: stage 4 (severe) Qualified Code(s): E11.22 - Type 2 diabetes mellitus with diabetic chronic kidney disease; N18.4 - Chronic kidney disease, stage 4 (severe); Z79.4 - intermediate (current) use of insulin Is this a current diagnosis for this admission?: Yes Plan: Maintain on humalog insulin sliding scale coverage on [facility]. (8) HTN (hypertension) Qualifiers: Hypertension type: essential hypertension Qualified Code(s): I10 - Essential (primary) hypertension Is this a current diagnosis for this admission?: Yes Plan: Maintain on IV Furosemide for dual benefit for renal failure and cardiac decompensation. (9) HLD (hyperlipidemia) Qualifiers: Hyperlipidemia type: unspecified Qualified Code(s): E78.5 - Hyperlipidemia, unspecified Is this a current diagnosis for this admission?: Yes Plan: Continue preadmission medication management. (10) GERD (gastroesophageal reflux disease) Qualifiers: Esophagitis presence: esophagitis presence not specified Qualified Code(s): K21.9 - Gastro-esophageal reflux disease without esophagitis Is this a current diagnosis for this admission?: Yes Plan: Maintain on Protonix for PUD prophylaxis therapy. - Time Time Spent: 50 to 70 Minutes Medications reviewed and adjusted accordingly: Yes Anticipated discharge: Home with Homehealth Within: Other - Inpatient Certification Based on my medical assessment, after consideration of the patient's comorbidities, presenting symptoms, or acuity I expect that the services needed warrant INPATIENT care.: Yes I certify that my determination is in accordance with my understanding of Medicare's requirements for reasonable and necessary INPATIENT services [42 CFR 412.3e].: Yes Medical Necessity: Significant Comorbidiites Make Outpatient Treatment Too Risky, Need Close Monitoring Due to Risk of Patient Decompensation, Need For Continuous Telemetry Monitoring, Risk of Complication if Not Cared For in Hospi magaly, Risk of Diagnosis Which Will Require Inpatient Eval/Care/Monitoring Post Hospital Care: D/C [employer] [place] Documentation - Plan Summary Plan Summary: See admitting attending physician orders for details about care plan.
[2019-02-01 03:31] LABS: APPEARANCE,URINE CLEAR; BILIRUBIN,URINE NEGATIVE (NEGATIVE); COLOR,URINE COLORLESS; GLUCOSE, URINE NEGATIVE (NEGATIVE); KETONES,URINE NEGATIVE (NEGATIVE); LEUKOCYTE ESTERASE,URINE NEGATIVE (NEGATIVE); NITRITE,URINE NEGATIVE (NEGATIVE); PROTEIN,URINE 100 mg/dL (NEGATIVE); URINE SPECIFIC GRAVITY 1.006; UROBILINOGEN,URINE NEGATIVE mg/dL (<2.0)
[2019-02-01 05:31] LABS: UR PRO/CREAT RATIO RESULT 5.9 mg/mg (0.0-0.2); URINE CREATININE 27.5 mg/dL (15-278); URINE PROTEIN 162.7 mg/dL (<12)
[2019-02-01] MEDS: FUROSEMIDE INJ/PF 20 MG/2 ML SDV IV SCH ×3 (05:49→21:17)
[2019-02-01] MEDS: HEPARIN SOD (PORCINE) 5,000 UNIT/ML 1 ML VIAL SUBCUT SCH ×3 (05:50→21:17)
[2019-02-01 05:52] LABS: ABSOLUTE BASOPHILS # (AUTO) 0.1 10^3/uL (0.0-0.2); ABSOLUTE EOSINOPHILS # (AUTO) 0.6 10^3/uL (0.0-0.6); ABSOLUTE LYMPHOCYTES (AUTO) 2.3 10^3/uL (0.5-4.7); ABSOLUTE MONOCYTES (AUTO) 0.5 10^3/uL (0.1-1.4); ABSOLUTE NEUT (AUTO) 5.2 10^3/uL (1.7-8.2); ABSOLUTE RETICS # 0.056 10^6/uL (0.028-0.122); BASOPHILS % (AUTO) 0.6 % (0-2); EOSINOPHILS % (AUTO) 6.8 % (0-6); HEMATOCRIT 29.2 % (36.0-47.0); HEMOGLOBIN 9.6 g/dL (12.0-15.5); LYMPHOCYTES % (AUTO) 26.1 % (13-45); MEAN CORPUSCULAR HEMOGLOBIN 27.4 pg (27.0-33.4); MEAN CORPUSCULAR VOLUME 83 fl (80-97); MONOCYTES % (AUTO) 6.2 % (3-13); PLATELET COUNT 238 10^3/uL (150-450); RED BLOOD COUNT 3.51 10^6/uL (3.72-5.28); RED CELL DISTRIBUTION WIDTH 14.8 % (11.5-14.0); RETICULOCYTE COUNT (AUTO) 1.59 % (0.66-2.85); SEGMENTED NEUTROPHILS % (AUTO) 60.3 % (42-78); TOTAL CELLS COUNTED % (AUTO) 100 %; WHITE BLOOD COUNT 8.6 10^3/uL (4.0-10.5)
[2019-02-01] MEDS: HYDRALAZINE HCL 10 MG TABLET PO SCH ×3 (06:00→21:17)
[2019-02-01] MEDS ORDERED: HYDRALAZINE HCL 25 MG TABLET PO SCH (06:00)
[2019-02-01] MEDS: ISOSORBIDE DINITRATE 20 MG TABLET PO SCH ×3 (06:00→21:17)
[2019-02-01 06:06] LABS: ANION GAP 9 (5-19); BLOOD UREA NITROGEN 45 mg/dL (7-20); CALCIUM 8.6 mg/dL (8.4-10.2); CARBON DIOXIDE 23 mmol/L (22-30); CHLORIDE 108 mmol/L (98-107); GLUCOSE 101 mg/dL (75-110); IRON(TIBC) 25.7 ug/dL (37-170); POTASSIUM 4.6 mmol/L (3.6-5.0)
[2019-02-01 07:15] LABS: FOLATE > 20.00 ng/mL (>2.76)
--- NOTE | 2019-02-01 08:33 | RADIOLOGY REPORT (SQ) ---
EXAM DESCRIPTION: U/S RETROPERITON (RENAL/AORTA) COMPLETED DATE/TIME: 01/31/2019 10:51 pm REASON FOR STUDY: MARIAJOSE COMPARISON: 04/20/2014 TECHNIQUE: Dynamic and static grayscale images acquired of the kidneys and bladder and recorded on P ACS. Additional selected color Doppler and spectral images recorded. LIMITATIONS: None. FINDINGS: RIGHT KIDNEY: Normal size measuring 11.4 cm. Increased echogenicity. No solid or suspicio us masses. No hydronephrosis. No calcifications. LEFT KIDNEY: Normal size measuring 11.5 cm. Increased echogenicity. There is a 3.2 cm simple appea ring cyst along the upper pole. No solid or suspicious masses. No hydronephrosis. No calcifications. BLADDER: No masses. OTHER FINDINGS: No other significant finding. IMPRESSION: No hydronephrosis. Increased cortical echogenicity which can be seen with medical renal disease. 3.2 cm left upper pole cyst. TECHNICAL DOCUMENTATION: JOB ID: [id number] [employer]- All Rights Reserved Reading location - IP/workstation name: [email or web address]
[2019-02-01] MEDS: INSULIN LISPRO 100 UNIT/ML 3 ML VIAL SUBCUT SCH ×4 (10:50→21:16)
[2019-02-01] MEDS: FAMOTIDINE 20 MG TABLET PO SCH (10:52)
[2019-02-01] MEDS: DOCUSATE SODIUM 100 MG CAPSULE PO SCH ×2 (10:52→17:18)
--- NOTE | 2019-02-01 18:46 | PDOC PROGRESS REPORT ---
Subjective Progress Note for:: 02/01/19 Subjective:: Patient reported feeling better and able to sleep in supine position. Ambulate in her room without difficulty. Reason For Visit: RENAL FAILURE Physical Exam Vital Signs: Temp Pulse Resp BP Pulse Ox 98.8 F 73 16 135/56 H 98 02/01/19 07:41 02/01/19 07:41 02/01/19 07:41 02/01/19 07:41 02/01/19 07:41 Intake & Output 01/31/19 02/01/19 02/02/19 06:59 06:59 06:59 Intake Total 180 860 Output Total 800 4075 Balance -620 -3215 Weight 78.5 kg 77 kg General appearance: PRESENT: obese Head exam: PRESENT: atraumatic, normocephalic Eye exam: PRESENT: conjunctiva pink. ABSENT: scleral icterus Ear exam: PRESENT: normal external ear exam Mouth exam: PRESENT: moist Teeth exam: PRESENT: poor dentation Respiratory exam: PRESENT: clear to auscultation marge, decreased breath sounds Cardiovascular exam: PRESENT: RRR, +S1, +S2. ABSENT: diastolic murmur, rubs, systolic murmur Vascular exam: ABSENT: pallor GI/Abdominal exam: PRESENT: normal bowel sounds, soft. ABSENT: distended, guarding, mass, organolmegaly, rebound, tenderness Extremities exam: ABSENT: pedal edema Neurological exam: PRESENT: alert, awake, oriented to person, oriented to place, oriented to time, oriented to situation, CN II-XII grossly intact. ABSENT: motor sensory deficit Psychiatric exam: PRESENT: appropriate affect, normal mood. ABSENT: homicidal ideation, suicidal ideation Skin exam: PRESENT: dry, warm Results Laboratory Results: 02/01/19 05:17 02/01/19 05:17 02/01/19 02/01/19 02/01/19 03:15 05:17 05:17 WBC 8.6 RBC 3.51 L Hgb 9.6 L Hct 29.2 L MCV 83 MCH 27.4 MCHC 33.0 RDW 14.8 H Plt Count 238 Seg Neutrophils % 60.3 Lymphocytes % 26.1 Monocytes % 6.2 Eosinophils % 6.8 H Basophils % 0.6 Absolute Neutrophils 5.2 Absolute Lymphocytes 2.3 Absolute Monocytes 0.5 Absolute Eosinophils 0.6 Absolute Basophils 0.1 Retic Count (auto) 1.59 Absolute Retic 0.056 Sodium 139.5 Potassium 4.6 Chloride 108 H Carbon Dioxide 23 Anion Gap 9 BUN 45 H Creatinine 4.24 H Est GFR ( Amer) 13 L Est GFR (Non-Af Amer) 11 L Glucose 101 Calcium 8.6 Phosphorus 6.0 H Magnesium 1.6 Iron 25.7 L TIBC 259 % Saturation 10 Ferritin 39.20 Vitamin B12 686.0 Folate > 20.00 TSH PTH Intact Urine Color COLORLESS Urine Appearance CLEAR Urine pH 6.0 Ur Specific [place] 1.006 Urine Protein 100 H Urine Glucose (UA) NEGATIVE Urine Ketones NEGATIVE Urine Blood SMALL H Urine Nitrite NEGATIVE Ur Leukocyte Esterase NEGATIVE Urine WBC (Auto) 1 Urine RBC (Auto) 1 02/01/19 02/01/19 05:17 05:17 WBC RBC Hgb Hct MCV MCH MCHC RDW Plt Count Seg Neutrophils % Lymphocytes % Monocytes % Eosinophils % Basophils % Absolute Neutrophils Absolute Lymphocytes Absolute Monocytes Absolute Eosinophils Absolute Basophils Retic Count (auto) Absolute Retic Sodium Potassium Chloride Carbon Dioxide Anion Gap BUN Creatinine Est GFR ( Amer) Est GFR (Non-Af Amer) Glucose Calcium Phosphorus Magnesium Iron TIBC % Saturation Ferritin Vitamin B12 Folate TSH 1.04 PTH Intact 289.9 H Urine Color Urine Appearance Urine pH Ur Specific [place] Urine Protein Urine Glucose (UA) Urine Ketones Urine Blood Urine Nitrite Ur Leukocyte Esterase Urine WBC (Auto) Urine RBC (Auto) 01/30/19 01/30/19 20:15 20:15 Creatine Kinase 50 CK-MB (CK-2) 0.29 Troponin I < 0.012 NT-Pro-B Natriuret Pep 1320 H Impressions: Chest X-Ray 01/30/19 20:04 IMPRESSION: Bilateral pleural effusions and consolidations. Assessment & Plan - Diagnosis (1) MARIAJOSE (acute kidney injury) Is this a current diagnosis for this admission?: Yes (2) CKD stage 4 due to type 2 diabetes mellitus Is this a current diagnosis for this admission?: Yes (3) Hyperkalemia Is this a current diagnosis for this admission?: Yes (4) Metabolic acidosis Is this a current diagnosis for this admission?: Yes (5) Pleural effusion Is this a current diagnosis for this admission?: Yes (6) Anemia Qualifiers: Anemia type: due to chronic kidney disease Chronic kidney disease stage: stage 4 (severe) Qualified Code(s): N18.4 - Chronic kidney disease, stage 4 (severe); D63.1 - Anemia in chronic kidney disease Is this a current diagnosis for this admission?: Yes (7) Type 2 diabetes mellitus Qualifiers: Diabetes mellitus fpc insulin use: with fpc use Diabetes mellitus complication status: with kidney complications Diabetes mellitus complication detail: with chronic kidney disease Chronic kidney disease stage: stage 4 (severe) Qualified Code(s): E11.22 - Type 2 diabetes mellitus with diabetic chronic kidney disease; N18.4 - Chronic kidney disease, stage 4 (severe); 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 Is this a current diagnosis for this admission?: Yes (8) HTN (hypertension) Qualifiers: Hypertension type: essential hypertension Qualified Code(s): I10 - Essential (primary) hypertension Is this a current diagnosis for this admission?: Yes (9) HLD (hyperlipidemia) Qualifiers: Hyperlipidemia type: unspecified Qualified Code(s): E78.5 - Hyperlipidemia, unspecified Is this a current diagnosis for this admission?: Yes (10) GERD (gastroesophageal reflux disease) Qualifiers: Esophagitis presence: esophagitis presence not specified Qualified Code(s): K21.9 - Gastro-esophageal reflux disease without esophagitis Is this a current diagnosis for this admission?: Yes - Time Time Spent with patient: 25-34 minutes Medications reviewed and adjusted accordingly: Yes Anticipated discharge: Home with Homehealth Within: Other - Inpatient Certification Based on my medical assessment, after consideration of the patient's comorbidities, presenting symptoms, or acuity I expect that the services needed warrant INPATIENT care.: Yes I certify that my determination is in accordance with my understanding of Medicare's requirements for reasonable and necessary INPATIENT services [42 CFR 412.3e].: Yes Medical Necessity: Significant Comorbidiites Make Outpatient Treatment Too Risky, Need Close Monitoring Due to Risk of Patient Decompensation, Need For Continuous Telemetry Monitoring, Risk of Complication if Not Cared For in Hospital, Risk of Diagnosis Which Will Require Inpatient Eval/Care/Monitoring Post Hospital 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 Continue other current medication management. Follow up on echocardiogram findings.
--- NOTE | 2019-02-01 21:47 | XCELERA REPORT ---
[address] [address] Transthoracic Echocardiogram Report Name: SHAILESH SALINAS I Age: 63 yrs Gender: Female : 1955 Patient Status: Inpatient Patient Location: [facility]A Study Date: 02/01/2019 11:35 AM Height: 63 in Weight: 173 lb BSA: 1.8 m2 Procedure: A two-dimensional transthoracic echocardiogram with color flow and Doppler was performed. Study Quality: Fair. Reason For Study: CHF History: CHF. Ordering Physician: BRENT ALVAREZ Performed By: Ailyn De La Torre Interpretation Summary The left ventricle is normal in size. There is normal left ventricular wall thickness. LV EF is 65% The left ventricular ejection fraction is within normal limits. Doppler measurements suggest impaired left ventricular relaxation, which is associated with grade I/IV or mild diastolic dysfunction The left ventricular wall motion is normal. There is no thrombus. There is no ventricular septal defect visualized. The right ventricle is normal in size and function. The right atrium is normal. The left atrial size is normal. The interatrial septum is intact with no evidence for an atrial septal defect. There is no Doppler evidence for an interatrial shunt There is no evidence of mitral valve prolapse. There is no vegetation seen on the mitral valve. There is a moderate to severe amount of mitral regurgitation There is mild mitral stenosis There is moderate mitral annular calcification. There is no aortic valvular vegetation. There is no aortic valve stenosis There is aortic sclerosis without aortic stenosis. There is no LVOT obstruction. No aortic regurgitation is present. There is no tricuspid stenosis. There is a mild amount of tricuspid regurgitation There is mild pulmonary hypertension by echo RVSP is 31 to 36 mm of Hg , with RA mean of 5 to 10. There is no pulmonic valvular stenosis. There is a trace amount of pulmonic regurgitation The aortic root is normal size. The inferior vena cava appeared normal and decreased > 50% with respiration (RAP 5-10 mmHg) There is no pericardial effusion. Moderate size left pleural effusion. MMode/2D Measurements & Calculations RVDd: 3.2 cm LVIDd: 5.0 cm FS: 44.2 % Ao root diam: 2.4 cm IVSd: 1.1 cm LVIDs: 2.8 cm EDV(Teich): 115.7 ml Ao root area: 4.6 cm2 LVPWd: 1.1 cm ESV(Teich): 28.6 ml LA dimension: 3.4 cm EF(Teich): 75.3 % Doppler Measurements & Calculations MV E max robi: MV P1/2t max robi: Ao V2 max: LV V1 max P.4 cm/sec 123.4 cm/sec 175.3 cm/sec 5.5 mmHg MV A max robi: MV P1/2t: 92.5 msec Ao max PG: LV V1 max: 131.3 cm/sec MVA(P1/2t): 2.4 cm2 12.3 mmHg 117.0 cm/sec MV E/A: 0.94 MV dec slope: 390.6 cm/sec2 MV dec time: 0.31 sec PA V2 max: TR max robi: MV P1/2t-pr_phl: 121.9 cm/sec 256.5 cm/sec 92.5 msec PA max P.9 mmHgTR max P.3 mmHg Left Ventricle The left ventricle is normal in size. There is normal left ventricular wall thickness. LV EF is 65%. The left ventricular ejection fraction is within normal limits. Doppler measurements suggest impaired left ventricular relaxation, which is associated with grade I/IV or mild diastolic dysfunction. The left ventricular wall motion is normal. There is no thrombus. There is no ventricular septal defect visualized. Right Ventricle The right ventricle is normal in size and function. Atria The right atrium is normal. The left atrial size is normal. The interatrial septum is intact with no evidence for an atrial septal defect. There is no Doppler evidence for an interatrial shunt. Mitral Valve There is moderate mitral annular calcification. There is no evidence of mitral valve prolapse. There is no vegetation seen on the mitral valve. There is mild mitral stenosis. There is a moderate to severe amount of mitral regurgitation. Aortic Valve There is no aortic valvular vegetation. There is no aortic valve stenosis. There is aortic sclerosis without aortic stenosis. There is no LVOT obstruction. No aortic regurgitation is present. Tricuspid Valve There is no tricuspid stenosis. There is a mild amount of tricuspid regurgitation. There is mild pulmonary hypertension by echo. RVSP is 31 to 36 mm of Hg , with RA mean of 5 to 10. Pulmonic Valve There is no pulmonic valvular stenosis. There is a trace amount of pulmonic regurgitation. Great Vessels The aortic root is normal size. The inferior vena cava appeared normal and decreased > 50% with respiration (RAP 5-10 mmHg). Effusions There is no pericardial effusion. Moderate size left pleural effusion. : BRENT ALVAREZ > Chrissy Cooper
[2019-02-02 05:03] LABS: ABSOLUTE BASOPHILS # (AUTO) 0.1 10^3/uL (0.0-0.2); ABSOLUTE EOSINOPHILS # (AUTO) 0.6 10^3/uL (0.0-0.6); ABSOLUTE LYMPHOCYTES (AUTO) 2.6 10^3/uL (0.5-4.7); ABSOLUTE MONOCYTES (AUTO) 0.5 10^3/uL (0.1-1.4); ABSOLUTE NEUT (AUTO) 5.6 10^3/uL (1.7-8.2); BASOPHILS % (AUTO) 0.6 % (0-2); EOSINOPHILS % (AUTO) 6.6 % (0-6); HEMATOCRIT 29.4 % (36.0-47.0); HEMOGLOBIN 9.8 g/dL (12.0-15.5); LYMPHOCYTES % (AUTO) 27.7 % (13-45); MEAN CORPUSCULAR HEMOGLOBIN 27.5 pg (27.0-33.4); MEAN CORPUSCULAR HGB CONC 33.3 g/dL (32.0-36.0); MEAN CORPUSCULAR VOLUME 83 fl (80-97); MONOCYTES % (AUTO) 5.5 % (3-13); PLATELET COUNT 255 10^3/uL (150-450); RED BLOOD COUNT 3.56 10^6/uL (3.72-5.28); RED CELL DISTRIBUTION WIDTH 14.5 % (11.5-14.0); SEGMENTED NEUTROPHILS % (AUTO) 59.6 % (42-78); TOTAL CELLS COUNTED % (AUTO) 100 %; WHITE BLOOD COUNT 9.4 10^3/uL (4.0-10.5)
[2019-02-02 05:20] LABS: ANION GAP 11 (5-19); BLOOD UREA NITROGEN 50 mg/dL (7-20); CALCIUM 8.8 mg/dL (8.4-10.2); CARBON DIOXIDE 21 mmol/L (22-30); CHLORIDE 107 mmol/L (98-107); GLUCOSE 107 mg/dL (75-110); POTASSIUM 4.5 mmol/L (3.6-5.0)
[2019-02-02] MEDS: HYDRALAZINE HCL 10 MG TABLET PO SCH ×3 (05:38→22:05)
[2019-02-02] MEDS: HEPARIN SOD (PORCINE) 5,000 UNIT/ML 1 ML VIAL SUBCUT SCH ×3 (05:39→22:07)
[2019-02-02] MEDS: FUROSEMIDE INJ/PF 20 MG/2 ML SDV IV SCH (05:39)
[2019-02-02] MEDS: ISOSORBIDE DINITRATE 20 MG TABLET PO SCH ×3 (05:39→22:05)
--- NOTE | 2019-02-02 07:20 | PDOC PROGRESS REPORT ---
Subjective Progress Note for:: 02/02/19 Subjective:: Patient reported left sided chest pain. No difficulty with breathing. No fever or chills. No abdominal pain, nausea, or vomiting. No fever or chills. Reason For Visit: RENAL FAILURE Physical Exam Vital Signs: Temp Pulse Resp BP Pulse Ox 98.7 F 79 21 H 153/65 H 95 02/02/19 03:11 02/02/19 03:11 02/02/19 03:11 02/02/19 03:11 02/02/19 03:11 Intake & Output 02/01/19 02/02/19 02/03/19 06:59 06:59 06:59 Intake Total 860 1325 Output Total 4075 3400 Balance -3215 -2075 Weight 77 kg 75.5 kg Physical Exam: General appearance: PRESENT: obese Head exam: PRESENT: atraumatic, normocephalic Eye exam: PRESENT: conjunctiva pink. ABSENT: pallor, scleral icterus Ear exam: PRESENT: normal external ear exam Mouth exam: PRESENT: moist Teeth exam: PRESENT: poor dentation Respiratory exam: PRESENT: clear to auscultation marge, decreased breath sounds, reproducible tenderness to palpation over left chest wall Cardiovascular exam: PRESENT: RRR, +S1, +S2. ABSENT: diastolic murmur, rubs, systolic murmur GI/Abdominal exam: PRESENT: normal bowel sounds, soft. ABSENT: distended, guarding, mass, organomegaly, rebound, tenderness Extremities exam: ABSENT: pedal edema Neurological exam: PRESENT: alert, awake, oriented to person, oriented to place, oriented to time, oriented to situation, CN II-XII grossly intact. ABSENT: motor sensory deficit Psychiatric exam: PRESENT: appropriate affect, normal mood. ABSENT: homicidal ideation, suicidal ideation Skin exam: PRESENT: dry, warm Results Laboratory Results: 02/02/19 04:02 02/02/19 04:02 02/01/19 02/02/19 02/02/19 05:17 04:02 04:02 WBC 9.4 RBC 3.56 L Hgb 9.8 L Hct 29.4 L MCV 83 MCH 27.5 MCHC 33.3 RDW 14.5 H Plt Count 255 Seg Neutrophils % 59.6 Lymphocytes % 27.7 Monocytes % 5.5 Eosinophils % 6.6 H Basophils % 0.6 Absolute Neutrophils 5.6 Absolute Lymphocytes 2.6 Absolute Monocytes 0.5 Absolute Eosinophils 0.6 Absolute Basophils 0.1 Sodium 139.5 138.8 Potassium 4.6 4.5 Chloride 108 H 107 Carbon Dioxide 23 21 L Anion Gap 9 11 BUN 45 H 50 H Creatinine 4.24 H 4.12 H Est GFR ( Amer) 13 L 13 L Est GFR (Non-Af Amer) 11 L 11 L Glucose 101 107 Calcium 8.6 8.8 Phosphorus 6.0 H Magnesium 1.6 Iron 25.7 L TIBC 259 % Saturation 10 Ferritin 39.20 Vitamin B12 686.0 Folate > 20.00 01/30/19 01/30/19 20:15 20:15 Creatine Kinase 50 CK-MB (CK-2) 0.29 Troponin I < 0.012 NT-Pro-B Natriuret Pep 1320 H Impressions: Chest X-Ray 01/30/19 20:04 IMPRESSION: Bilateral pleural effusions and consolidations. Renal Ultrasound 01/31/19 00:00 IMPRESSION: No hydronephrosis. Increased cortical echogenicity which can be seen with medical renal disease. 3.2 cm left upper pole cyst. Assessment & Plan - Diagnosis (1) MARIAJOSE (acute kidney injury) Is this a current diagnosis for this admission?: Yes (2) CKD stage 4 due to type 2 diabetes mellitus Is this a current diagnosis for this admission?: Yes (3) Hyperkalemia Is this a current diagnosis for this admission?: Yes (4) Metabolic acidosis Is this a current diagnosis for this admission?: Yes (5) Pleural effusion Is this a current diagnosis for this admission?: Yes (6) Anemia Qualifiers: Anemia type: due to chronic kidney disease Chronic kidney disease stage: stage 4 (severe) Qualified Code(s): N18.4 - Chronic kidney disease, stage 4 (severe); D63.1 - Anemia in chronic kidney disease Is this a current diagnosis for this admission?: Yes (7) Type 2 diabetes mellitus Qualifiers: Diabetes mellitus fpc insulin use: with fpc use Diabetes mellitus complication status: with kidney complications Diabetes mellitus complication detail: with chronic kidney disease Chronic kidney disease stage: stage 4 (severe) Qualified Code(s): E11.22 - Type 2 diabetes mellitus with diabetic chronic kidney disease; N18.4 - Chronic kidney disease, stage 4 (severe); Z79.4 - [facility] (current) use of insulin Is this a current diagnosis for this admission?: Yes (8) HTN (hypertension) Qualifiers: Hypertension type: essential hypertension Qualified Code(s): I10 - Essential (primary) hypertension Is this a current diagnosis for this admission?: Yes (9) HLD (hyperlipidemia) Qualifiers: Hyperlipidemia type: unspecified Qualified Code(s): E78.5 - Hyperlipidemia, unspecified Is this a current diagnosis for this admission?: Yes (10) GERD (gastroesophageal reflux disease) Qualifiers: Esophagitis presence: esophagitis presence not specified Qualified Code(s): K21.9 - Gastro-esophageal reflux disease without esophagitis Is this a current diagnosis for this admission?: Yes - Time Time Spent with patient: 25-34 minutes Medications reviewed and adjusted accordingly: Yes Anticipated discharge: Home Within: Other - Inpatient Certification Based on my medical assessment, after consideration of the patient's comorbidities, presenting symptoms, or acuity I expect that the services needed warrant INPATIENT care.: Yes I certify that my determination is in accordance with my understanding of Medicare's requirements for reasonable and necessary INPATIENT services [42 CFR 412.3e].: Yes Medical Necessity: Significant Comorbidiites Make Outpatient Treatment Too Risky, Need Close Monitoring Due to Risk of Patient Decompensation, Need For Continuous Telemetry Monitoring, Risk of Complication if Not Cared For in Hospital, Risk of Diagnosis Which Will Require Inpatient Eval/Care/Monitoring Post Hospital 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 Start on Lasix 40 mg p.o daily. Obtain chest CT scan without con trast to assess her reported lung nodule and extent of effusion. Continue all other current medication management.
[2019-02-02] MEDS: INSULIN LISPRO 100 UNIT/ML 3 ML VIAL SUBCUT SCH ×4 (08:46→22:06)
[2019-02-02] MEDS: CALCIUM ACETATE 667 MG CAPSULE PO SCH ×3 (08:47→18:06)
[2019-02-02] MEDS: FAMOTIDINE 20 MG TABLET PO SCH (10:04)
[2019-02-02] MEDS: FUROSEMIDE 40 MG TABLET PO SCH (10:04)
[2019-02-02] MEDS: DOCUSATE SODIUM 100 MG CAPSULE PO SCH ×2 (10:04→18:06)
--- NOTE | 2019-02-02 10:45 | RADIOLOGY REPORT (SQ) ---
EXAM DESCRIPTION: CT CHEST WITHOUT COMPLETED DATE/TIME: 02/02/2019 9:44 am REASON FOR STUDY: Pleural effusion with hx lung nodules and CKD COMPARISON: Radiographs from 01/30/2019. No prior CT imaging available. TECHNIQUE: CT scan performed of the chest without intravenous contrast. Images reviewed with lung, soft tissue and bone windows. Reconstructed coronal and sagittal MPR images reviewed. All images st ored on PACS. All CT scanners at this facility use dose modulation, iterative reconstruction, and/or weight based d osing when appropriate to reduce radiation dose to as low as reasonably achievable (ALARA). [facility]: Dose Right [facility]: CareDose [facility]: Dose Right [facility]: Teradose 4D [facility]: Smart [employer] RADIATION DOSE: CT Rad equipment meets quality standard of care and radiation dose reduction techniq ues were employed. CTDIvol: 11.2 mGy. DLP: 443 mGy-cm. mGy. LIMITATIONS: No technical limitations. FINDINGS: LUNGS AND PLEURA: Bilateral lower lobe partial volume loss and consolidation with relative ly small bilateral pleural effusions. No discrete nodules or masses. No pneumothorax. HILAR AND MEDIASTINAL STRUCTURES: No identified masses or abnormal nodes. No obvious aneurysm. HEART AND VASCULAR STRUCTURES: Cardiomegaly without pericardial effusion. Moderate coronary calcific ation. No aortic aneurysm detected. UPPER ABDOMEN: No significant findings. Limited exam. THYROID AND OTHER SOFT TISSUES: No masses. No adenopathy. BONES: No significant finding. HARDWARE: None in the chest. OTHER: No other significant findings. IMPRESSION: 1. Basilar lung changes as above. Include small effusions and volume loss in the lower lobes. No no dules or masses detected. TECHNICAL DOCUMENTATION: JOB ID: [id number] Quality ID # [id number]: Final reports with documentation of one or more dose reduction techniques (e.g., Au tomated exposure control, adjustment of the mA and/or kV according to patient size, use of iterative reconstruction technique) 2010 [email or web address] All Rights Reserved Reading location - IP/workstation name: [email or web address]
--- NOTE | 2019-02-02 17:38 | PDOC PROGRESS REPORT ---
Subjective Progress Note for:: 02/02/19 Subjective:: Patient is feeling much better in terms of her breathing. She has responded well with diuresis for the last couple of days. She appears to be comfortable. She does not have any other new complaints. She is almost ready to go home. Reason For Visit: RENAL FAILURE Physical Exam Vital Signs: Temp Pulse Resp BP Pulse Ox 98.3 F 89 18 165/67 H 93 02/02/19 14:46 02/02/19 14:46 02/02/19 14:46 02/02/19 14:46 02/02/19 14:46 Intake & Output 02/01/19 02/02/19 02/03/19 06:59 06:59 06:59 Intake Total 860 1325 415 Output Total 4075 3400 1000 Balance -3215 -2075 -585 Weight 77 kg 75.5 kg Exam: General appearance: PRESENT: no acute distress, cooperative, well-developed, well-nourished Head exam: PRESENT: atraumatic, normocephalic Eye exam: PRESENT: conjunctiva slightly pale PERRLA. ABSENT: scleral icterus Neck exam: ABSENT: JVD Respiratory exam: PRESENT: Diminished breath sounds. ABSENT: crackles, rales, rhonchi, unlabored, wheezes Cardiovascular exam: PRESENT: Regular rate rhythm -+S1, +S2. ABSENT: diastolic murmur, systolic murmur GI/Abdominal exam: PRESENT: normal bowel sounds, soft. ABSENT: guarding, mass, tenderness Extremities exam: ABSENT: No edema Neurological exam: PRESENT: alert, awake, oriented to person, place and time. Skin exam: PRESENT: dry, warm, Cardiovascular exam: PRESENT: +S1, +S2 GI/Abdominal exam: PRESENT: normal bowel sounds, soft. ABSENT: organomegaly, tenderness Results Laboratory Results: 02/02/19 04:02 02/02/19 04:02 02/02/19 02/02/19 04:02 04:02 WBC 9.4 RBC 3.56 L Hgb 9.8 L Hct 29.4 L MCV 83 MCH 27.5 MCHC 33.3 RDW 14.5 H Plt Count 255 Seg Neutrophils % 59.6 Lymphocytes % 27.7 Monocytes % 5.5 Eosinophils % 6.6 H Basophils % 0.6 Absolute Neutrophils 5.6 Absolute Lymphocytes 2.6 Absolute Monocytes 0.5 Absolute Eosinophils 0.6 Absolute Basophils 0.1 Sodium 138.8 Potassium 4.5 Chloride 107 Carbon Dioxide 21 L Anion Gap 11 BUN 50 H Creatinine 4.12 H Est GFR ( Amer) 13 L Est GFR (Non-Af Amer) 11 L Glucose 107 Calcium 8.8 01/31/19 00:30 Clean Catch Midstream Urine Culture - Final NO GROWTH 2 DAYS 01/30/19 01/30/19 20:15 20:15 Creatine Kinase 50 CK-MB (CK-2) 0.29 Troponin I < 0.012 NT-Pro-B Natriuret Pep 1320 H Impressions: Chest X-Ray 01/30/19 20:04 IMPRESSION: Bilateral pleural effusions and consolidations. Renal Ultrasound 01/31/19 00:00 IMPRESSION: No hydronephrosis. Increased cortical echogenicity which can be seen with medical renal disease. 3.2 cm left upper pole cyst. Chest CT 02/02/19 00:00 IMPRESSION: 1. Basilar lung changes as above. Include small effusions and volume loss in the lower lobes. No nodules or masses detected. Assessment & Plan - Diagnosis (1) MARIAJOSE (acute kidney injury) Is this a current diagnosis for this admission?: Yes Plan: Initially it was thought that the patient has acute kidney injury on top of chronic kidney disease but for the last few days there is not any renal recovery at all. Patient cannot tell me if she was given IV contrast for the CTA in [place] before it was found that she has elevated creatinine. So far her kidney function remains unchanged. She is nonoliguric. She is passing a good amount of urine output with diuresis. She does not need urgent renal replacement therapy however if her kidney function continues to get worse she is most likely going to need to be initiated on it very soon. (2) Chronic kidney disease, stage V Is this a current diagnosis for this admission?: Yes Plan: Associated with nephrotic range proteinuria of 7 g. Here her urine protein to creatinine ratio is about 5.9. This is most likely secondary to diabetic nephropathy. Patient's EGFR is at 11. If this is indeed the patient's new baseline kidney function then she is clearly stage V. We will hold off any kidney biopsy at this time since it is probably not going to make any difference at this point. Discussed about possibility of initiating renal replacement therapy sent with patient. I think she may be a good candidate for peritoneal dialysis. I discussed this with patient today. We will discuss it more when she follows up with me in 2 weeks. (3) Metabolic acidosis Is this a current diagnosis for this admission?: Yes Plan: Start sodium bicarbonate 650 mg p.o. daily. (4) Secondary hyperparathyroidism (of renal origin) Is this a current diagnosis for this admission?: Yes Plan: Start calcitriol 0.25 mcg p.o. daily. (5) Hyperphosphatemia Is this a current diagnosis for this admission?: Yes Plan: Continue calcium acetate with meals as ordered. (6) Iron deficiency anemia Is this a current diagnosis for this admission?: Yes Plan: We will give a dose of IV Injectafer tonight. (7) Nephrotic syndrome Is this a current diagnosis for this admission?: Yes (8) Anemia in chronic kidney disease (CKD) Is this a current diagnosis for this admission?: Yes (9) Pleural effusion Is this a current diagnosis for this admission?: Yes Plan: CT scan shows small bilateral pleural effusion likely related to nephrotic syndrome. Continue Lasix 40 mg daily. (10) HTN (hypertension) Qualifiers: Hypertension type: essential hypertension Qualified Code(s): I10 - Essential (primary) hypertension Is this a current diagnosis for this admission?: Yes Plan: Still suboptimally controlled. May increase hydralazine to 25 mg p.o. every 8 hours. (11) Type 2 diabetes mellitus Qualifiers: Diabetes mellitus terminal gauger insulin use: with chcf use Diabetes mellitus complication status: with kidney complications Diabetes mellitus complication detail: with chronic kidney disease Chronic kidney disease stage: stage 4 (severe) Qualified Code(s): E11.22 - Type 2 diabetes mellitus with diabetic chronic kidney disease; N18.4 - Chronic kidney disease, stage 4 (severe); Z79.4 - long-term (current) use of insulin Is this a current diagnosis for this admission?: Yes - Notes Notes: I had an extensive discussion with the patient regarding her possible course of her kidney disease including possibly requiring renal replacement therapy soon. I briefly discussed about the dialysis modalities. I think she is a stable enough that she can be discharged home and to continue all medications that were started here in the hospital. Follow-up with me in 2 weeks with repeat CBC and BMP. - Time Time with patient: Greater than 35 minutes
[2019-02-02] MEDS: SODIUM BICARBONATE 650 MG TABLET PO SCH (18:06)
[2019-02-02] MEDS: CALCITRIOL 0.25 MCG CAPSULE PO SCH (18:06)
[2019-02-02] MEDS ORDERED: FERRIC CARBOXYMALTOSE 750 MG in NORMAL SALINE 100 ML IV ONE (19:00)
[2019-02-03] MEDS: HYDRALAZINE HCL 10 MG TABLET PO SCH ×2 (06:24→13:01)
[2019-02-03] MEDS: ISOSORBIDE DINITRATE 20 MG TABLET PO SCH ×2 (06:24→13:01)
[2019-02-03] MEDS: HEPARIN SOD (PORCINE) 5,000 UNIT/ML 1 ML VIAL SUBCUT SCH ×2 (06:24→13:01)
[2019-02-03] MEDS: INSULIN LISPRO 100 UNIT/ML 3 ML VIAL SUBCUT SCH ×3 (08:19→16:19)
[2019-02-03] MEDS: CALCIUM ACETATE 667 MG CAPSULE PO SCH ×3 (08:19→17:08)
[2019-02-03] MEDS: FUROSEMIDE 40 MG TABLET PO SCH (09:28)
[2019-02-03] MEDS: FAMOTIDINE 20 MG TABLET PO SCH (09:28)
[2019-02-03] MEDS: CALCITRIOL 0.25 MCG CAPSULE PO SCH (09:28)
[2019-02-03] MEDS: DOCUSATE SODIUM 100 MG CAPSULE PO SCH ×2 (09:28→17:08)
[2019-02-03] MEDS: SODIUM BICARBONATE 650 MG TABLET PO SCH (09:29)
[2019-02-03] MEDS ORDERED: HYDRALAZINE HCL INJ/PF 20 MG/1 ML SDV IV PRN (14:00)
[2019-02-03 18:33] VITALS: BP 158/65
--- NOTE | 2019-02-03 18:46 | PDOC DISCHARGE SUMMARY ---
General - Admit/Disc Date/PCP Admission Date/Primary Care Provider: 01/30/19 22:35 BRENT ALVAREZ Discharge Date: 02/03/19 - Discharge Diagnosis (1) MARIAJOSE (acute kidney injury) Is this a current diagnosis for this admission?: Yes (2) CKD stage 4 due to type 2 diabetes mellitus Is this a current diagnosis for this admission?: Yes (3) Hyperkalemia Is this a current diagnosis for this admission?: Yes (4) Metabolic acidosis Is this a current diagnosis for this admission?: Yes (5) Pleural effusion Is this a current diagnosis for this admission?: Yes (6) Anemia Is this a current diagnosis for this admission?: Yes (7) Type 2 diabetes mellitus Is this a current diagnosis for this admission?: Yes (8) HTN (hypertension) Is this a current diagnosis for this admission?: Yes (9) HLD (hyperlipidemia) Is this a current diagnosis for this admission?: Yes (10) GERD (gastroesophageal reflux disease) Is this a current diagnosis for this admission?: Yes - Additional Information Resuscitation Status: Full Code Discharge Diet: Cardiac, Diabetic, Other (Comments) - pre dialysis Discharge Activity: Activity As Tolerated, Slowly Increase Activity Prescriptions: Calcitriol [Rocaltrol 0.25 mcg Capsule] 0.25 mcg PO DAILY #30 capsule Calcium Acetate [Phoslo 667 mg Capsule] 1,334 mg PO MEALS #180 capsule Docusate Sodium [Colace 100 mg Capsule] 100 mg PO BID #60 capsule Furosemide [Lasix 40 mg Tablet] 40 mg PO DAILY #30 tablet Hydralazine HCl [Apresoline 10 mg Tablet] 10 mg PO Q8 #90 tablet Insulin Aspart [Novolog Flexpen] 0 unit SUBCUT .SLD SCALE #5 pen Insulin Glargine,Hum.rec.anlog [Tovishal Solostrobin] 15 unit SQ DAILY 90 Days insuln.pen Isosorbide Dinitrate [Isordil Titradose 20 mg Tablet] 20 mg PO Q8 #90 tablet Ranitidine HCl 150 mg PO DAILY #30 tablet Sodium Bicarbonate [Sodium Bicarbonate 650 mg Tablet] 650 mg PO DAILY #30 tablet Home Medications: Folic Acid/Multivit-Min/Lutein [Centrum Silver Chewable Tablet] 1 tab.chew PO DAILY 04/15/14 Atorvastatin Calcium [Lipitor 40 mg Tablet] 40 mg PO DAILY #0 tablet 08/14/15 Aspirin [Ecotrin 81 mg EC Tablet] 81 mg PO DAILY 01/31/19 Calcitriol [Rocaltrol 0.25 mcg Capsule] 0.25 mcg PO DAILY #30 capsule 02/03/19 Calcium Acetate [Phoslo 667 mg Capsule] 1,334 mg PO MEALS #180 capsule 02/03/19 Docusate Sodium [Colace 100 mg Capsule] 100 mg PO BID #60 capsule 02/03/19 Furosemide [Lasix 40 mg Tablet] 40 mg PO DAILY #30 tablet 02/03/19 Hydralazine HCl [Apresoline 10 mg Tablet] 10 mg PO Q8 #90 tablet 02/03/19 Insulin Aspart [Novolog Flexpen] 0 unit SUBCUT .SLD SCALE #5 pen 02/03/19 Insulin Glargine,Hum.rec.anlog [Toujeo Solostar] 15 unit SQ DAILY 90 Days insuln.pen 02/03/19 Isosorbide Dinitrate [Isordil Titradose 20 mg Tablet] 20 mg PO Q8 #90 tablet 02/03/19 Ranitidine HCl 150 mg PO DAILY #30 tablet 02/03/19 Sodium Bicarbonate [Sodium Bicarbonate 650 mg Tablet] 650 mg PO DAILY #30 tablet 02/03/19 History of Present Illness History of Present Illness: SHAILESH SALINAS I is a 63 year old female known to my practice who has been travelling with spouse and missing out on medical follow up for several months. She presented to the ED with worsening difficulty with breathing that progressed over the last two weeks from exertional to at rest. She denied any chest pain, palpitation, or irregular heart beats. She recently diagnosed with renal failure of undetermined duration with elevated serum creatinine, worsening BUN, and eGFR while travelling with spouse in [place]. She was evaluated in the office recently with review of her record from hospitalization in [place] that suggested progressive chronic kidney failure. She represented to the ED with worsening difficulty with breathing. Her initial evaluation did revealed CKD stage 5 with hyperkalemia, bilateral pleural effusion, pulmonary edema, metabolic acidosis. She denied any coughing, fever, chills, nausea, vomiting, or abdominal pain. Her morbidities include CKD, hypertension, hyperlipidemia, Diabetes mellitus type 2, and GERD. She was advised hospitalization for further evaluation and management. Hospital Course Hospital Course: She was admitted as case of MARIAJOSE with CKD stage 4, metabolic acidosis and fluid overload. She was managed with IV Furosemide and supplemental oxygen with good response with regard to resolution of her presenting symptoms. She was seen in consultation by [facility] with recommendation and commencement of medications for CKD associated complications. She is presently not a candidate for renal supplementation therapy. Her cardiac work revealed LVEF about 65%. Her chest CT without contrast was unrevealing regarding lung nodule but suggested small bilateral pleural effusion and bilateral basilar atelectasis. Her bilateral small pleural effusion is probable consequence of her renal failure. She was instructed on use of incentive spirometry at home. Her insulin requirement for diabetes mellitus type 2 has significant decreased and she will be discharged home on Toujeo 15 units SC daily and Novolog insulin qachs sliding scale coverage. Her antihypertensive medications were adjusted for CKD consideration. She will follow up with [facility] and myself in the office as instructed upon discharge. Physical Exam Vital Signs: Temp Pulse Resp BP Pulse Ox 98.7 F 85 18 138/56 H 97 02/03/19 11:10 02/03/19 14:00 02/03/19 11:10 02/03/19 11:10 02/03/19 11:10 Intake & Output 02/02/19 02/03/19 02/04/19 06:59 06:59 06:59 Intake Total 1325 1490 1345 Output Total 3400 3275 1000 Balance -2074 -1785 345 Weight 75.5 kg 70.8 kg Physical Exam: General appearance: PRESENT: obese Head exam: PRESENT: atraumatic, normocephalic Eye exam: PRESENT: conjunctiva pink. ABSENT: pallor, scleral icterus Ear exam: PRESENT: normal external ear exam Mouth exam: PRESENT: moist Teeth exam: PRESENT: poor dentition Respiratory exam: PRESENT: clear to auscultation marge Cardiovascular exam: PRESENT: RRR, +S1, +S2. ABSENT: diastolic murmur, rubs, systolic murmur GI/Abdominal exam: PRESENT: normal bowel sounds, soft. ABSENT: distended, guarding, mass, organomegaly, rebound, tenderness Extremities exam: ABSENT: pedal edema Neurological exam: PRESENT: alert, awake, oriented to person, oriented to place, oriented to time, oriented to situation, CN II-XII grossly intact. ABSENT: motor sensory deficit Psychiatric exam: PRESENT: appropriate affect, normal mood. ABSENT: homicidal ideation, suicidal ideation Skin exam: PRESENT: dry, warm Results Laboratory Results: 02/02/19 04:02 02/02/19 04:02 01/30/19 01/30/19 20:15 20:15 Creatine Kinase 50 CK-MB (CK-2) 0.29 Troponin I < 0.012 NT-Pro-B Natriuret Pep 1320 H Impressions: Chest X-Ray 01/30/19 20:04 IMPRESSION: Bilateral pleural effusions and consolidations. Renal Ultrasound 01/31/19 00:00 IMPRESSION: No hydronephrosis. Increased cortical echogenicity which can be seen with medical renal disease. 3.2 cm left upper pole cyst. Chest CT 02/02/19 00:00 IMPRESSION: 1. Basilar lung changes as above. Include small effusions and volume loss in the lower lobes. No nodules or masses detected. Qualifiers - * PATIENT BEING DISCHARGED WITH ANY OF THE FOLLOWING DIAGNOSIS: No Acute Heart Failure - Is this a Heart Failure Patient?: No Plan Discharge Plan: D/C home today. Follow up in the office as instructed upon discharge. Follow up appointment with [facility] as instructed upon discharge. Time Spent: Greater than 30 Minutes
== END 2019-02-03 18:44 | disposition home or self-care (01) | DRG 683 ==
LOC: ER 19:19 → EH 22:35 → 3N 23:35
PROVIDERS: ADMIT Internal Medicine; ATTEND Internal Medicine Geriatric Medicine
DX: N17.9 Acute kidney failure, unspecified (principal); E87.2 Acidosis; J90 Pleural effusion, not elsewhere classified; N18.4 Chronic kidney disease, stage 4 (severe); N25.81 Secondary hyperparathyroidism of renal origin; I12.9 Hypertensive chronic kidney disease with stage 1 through stage 4 chronic kidney disease, or unspecified chronic kidney disease; E11.22 Type 2 diabetes mellitus with diabetic chronic kidney disease; E78.00 Pure hypercholesterolemia, unspecified; K21.9 Gastro-esophageal reflux disease without esophagitis; E87.5 Hyperkalemia; D63.1 Anemia in chronic kidney disease; E83.39 Other disorders of phosphorus metabolism; N25.0 Renal osteodystrophy; G47.33 Obstructive sleep apnea (adult) (pediatric)
CPT/HCPCS: 36415; 71045; 71250; 76770; 80048; 80053; 81001; 82550; 82553; 82570; 82607; 82728; 82746; 82962; 83540; 83550; 83735; 83880; 83970; 84100; 84156; 84443; 84484; 85025; 85045; 87086; 93005; 93010; 93306; 94799; 99285; J0610; J1439; J1644; J1815; J1940; J3490; J7050

== ENCOUNTER → 2019-02-15 | Outpatient (CLI) | payer SELFPAY ==
[2019-02-15 09:01] LABS: ABSOLUTE BASOPHILS # (AUTO) 0.1 10^3/uL (0.0-0.2); ABSOLUTE EOSINOPHILS # (AUTO) 0.9 10^3/uL (0.0-0.6); ABSOLUTE LYMPHOCYTES (AUTO) 2.4 10^3/uL (0.5-4.7); ABSOLUTE MONOCYTES (AUTO) 0.6 10^3/uL (0.1-1.4); ABSOLUTE NEUT (AUTO) 4.5 10^3/uL (1.7-8.2); BASOPHILS % (AUTO) 0.7 % (0-2); HEMATOCRIT 31.4 % (36.0-47.0); HEMOGLOBIN 10.4 g/dL (12.0-15.5); LYMPHOCYTES % (AUTO) 27.9 % (13-45); MEAN CORPUSCULAR HEMOGLOBIN 27.7 pg (27.0-33.4); MEAN CORPUSCULAR HGB CONC 33.2 g/dL (32.0-36.0); MEAN CORPUSCULAR VOLUME 84 fl (80-97); MONOCYTES % (AUTO) 6.5 % (3-13); PLATELET COUNT 295 10^3/uL (150-450); RED BLOOD COUNT 3.76 10^6/uL (3.72-5.28); RED CELL DISTRIBUTION WIDTH 15.4 % (11.5-14.0); SEGMENTED NEUTROPHILS % (AUTO) 53.9 % (42-78); TOTAL CELLS COUNTED % (AUTO) 100 %; WHITE BLOOD COUNT 8.4 10^3/uL (4.0-10.5)
[2019-02-15 09:22] LABS: APPEARANCE,URINE CLEAR; BILIRUBIN,URINE NEGATIVE (NEGATIVE); COLOR,URINE YELLOW; GLUCOSE, URINE 50 mg/dL (NEGATIVE); KETONES,URINE NEGATIVE (NEGATIVE); LEUKOCYTE ESTERASE,URINE TRACE (NEGATIVE); NITRITE,URINE NEGATIVE (NEGATIVE); PROTEIN,URINE >=500 mg/dL (NEGATIVE); URINE SPECIFIC GRAVITY 1.012; UROBILINOGEN,URINE NEGATIVE mg/dL (<2.0)
[2019-02-15 09:24] LABS: ANION GAP 14 (5-19); BLOOD UREA NITROGEN 82 mg/dL (7-20); CALCIUM 9.9 mg/dL (8.4-10.2); CARBON DIOXIDE 22 mmol/L (22-30); CHLORIDE 105 mmol/L (98-107); GLUCOSE 101 mg/dL (75-110); IRON(TIBC) 86.1 ug/dL (37-170); PHOSPHORUS 6.1 mg/dL (2.5-4.5); POTASSIUM 4.4 mmol/L (3.6-5.0)
[2019-02-15 09:40] LABS: URINE CREATININE 86.4 mg/dL (15-278)
[2019-02-15 11:01] LABS: UR PRO/CREAT RATIO RESULT 5.3 mg/mg (0.0-0.2); URINE PROTEIN 460.6 mg/dL (<12)
[2019-02-16 11:37] LABS: HEPATITIS C VIRUS AB <0.1 s/co ratio (0.0-0.9)
[2019-02-16 13:22] LABS: HEPATITS B SURFACE ANTIGEN Negative (Negative)
== END ==
LOC: OD 07:43
PROVIDERS: ATTEND Internal Medicine Nephrology
DX: N17.9 Acute kidney failure, unspecified (principal); I12.0 Hypertensive chronic kidney disease with stage 5 chronic kidney disease or end stage renal disease; N18.5 Chronic kidney disease, stage 5; E11.22 Type 2 diabetes mellitus with diabetic chronic kidney disease; D63.1 Anemia in chronic kidney disease
CPT/HCPCS: 36415; 80069; 81001; 82306; 82570; 82728; 83540; 83550; 83970; 84156; 84165; 85025; 86317; 86803; 86804; 87340

== ENCOUNTER 2019-02-23 06:10 | Day surgery (SDC) | payer SELFPAY ==
[2019-02-23 06:40] LABS: HEMATOCRIT 31.8 % (36.0-47.0); HEMOGLOBIN 10.5 g/dL (12.0-15.5); MEAN CORPUSCULAR HEMOGLOBIN 27.6 pg (27.0-33.4); MEAN CORPUSCULAR VOLUME 84 fl (80-97); PLATELET COUNT 224 10^3/uL (150-450); RED BLOOD COUNT 3.79 10^6/uL (3.72-5.28); RED CELL DISTRIBUTION WIDTH 15.4 % (11.5-14.0); WHITE BLOOD COUNT 8.5 10^3/uL (4.0-10.5)
[2019-02-23 06:46] LABS: INTERNATIONAL RATION (INR) 1.03; PROTHROMBIN TIME 13.5 SEC (11.4-15.4)
[2019-02-23 06:47] LABS: PARTIAL THROMBOPLASTIN TIME 30.5 SEC (23.5-35.8)
[2019-02-23 06:59] LABS: ANION GAP 12 (5-19); BLOOD UREA NITROGEN 94 mg/dL (7-20); CALCIUM 10.1 mg/dL (8.4-10.2); CARBON DIOXIDE 24 mmol/L (22-30); CHLORIDE 103 mmol/L (98-107); GLUCOSE 127 mg/dL (75-110); POTASSIUM 4.4 mmol/L (3.6-5.0)
[2019-02-23] MEDS ORDERED: OXYCODONE-ACETAMINOPHEN 5-325 MG TABLET PO PRN (07:46)
[2019-02-23] MEDS ORDERED: LIDOCAINE 0.5% INJ-PF (5 MG/ML) 50 ML SDV ONE (07:47)
[2019-02-23] MEDS ORDERED: FENTANYL CITRATE INJ/PF 100 MCG/2 ML AMPUL ONE (07:48)
[2019-02-23] MEDS ORDERED: BACITRACIN INJ 50,000 UNIT VIAL ONE (07:48)
[2019-02-23] MEDS ORDERED: MIDAZOLAM 2 MG/2 ML INJ ONE (07:48)
[2019-02-23] MEDS ORDERED: DIAZEPAM 5 MG TABLET PO PRN (07:50)
[2019-02-23] MEDS ORDERED: HYDRALAZINE HCL 10 MG TABLET PO ONE (08:00)
[2019-02-23] MEDS ORDERED: ISOSORBIDE DINITRATE 20 MG TABLET PO ONE (08:00)
[2019-02-23] MEDS ORDERED: CEFAZOLIN INJ 1 GM VIAL ONE (08:06)
--- NOTE | 2019-02-23 09:53 | Discharge Summary ---
Discharge Summary (SDC) - Discharge Final Diagnosis: #1 renal failure. 2. Diabetes mellitus type 2. 3. Hypertension. Date of Surgery: 02/23/19 Discharge Date: 02/23/19 Condition: Fair Treatment or Instructions: Discharge home [after recovery per ASU criteria]. Diet , [renal],as tolerated, when fully awake advance as tolerated. Activities within moderation encouraged. Follow up in my office by appointment in about [1 week]. Call for appointment. Leave wounds [covered], [keep clean and dry, until office visit in 1 week]. Hold of on school/work [until evaluation in office]. May shower [in 48 hrs], [try to keep operated area as dry as possible]. Discharge Diet: Other (Comments) - Renal, diabetic. Respiratory Treatments at Home: Deep Breathing/Coughing Discharge Activity: Activity As Tolerated Report the Following to Your Physician Immediately: Shortness of Breath, Unusual Bleeding
--- NOTE | 2019-02-23 10:29 | RADIOLOGY REPORT (SQ) ---
EXAM DESCRIPTION: TUNNELED CENTRAL LINE; GUIDANCE ULTRASOUND; GUIDANCE FLUOROSCOPIC COMPLETED DATE/TIME: 02/23/2019 9:33 am REASON FOR STUDY: N17.9,N18.5 CKD, ARF N17.9 ACUTE KIDNEY FAILURE, UNSPECIFIED N18.5 CHRONIC KIDNE Y DISEASE, STAGE 5 COMPARISON: None. FLUOROSCOPY TIME: 0.6 minutes Spot images saved to PACS. TECHNIQUE: Intra-operative images acquired during surgical procedure to evaluate progress. NUMBER OF IMAGES: 6 LIMITATIONS: None. FINDINGS: Fluoroscopy was provided for intraoperative procedure. Please refer to the operative repo rt for further discussion. IMPRESSION: IMAGE(S) OBTAINED DURING PROCEDURE. COMMENT: Quality ID 145: Final reports for procedures using fluoroscopy that document radiation exp osure indices, or exposure time and number of fluorographic images (if radiation exposure indices are not available) Please consult full operative report of the attending physician for description of the procedure. TECHNICAL DOCUMENTATION: JOB ID: [id number] [employer]- All Rights Reserved Reading location - IP/workstation name: [email or web address]
--- NOTE | 2019-02-23 10:29 | RADIOLOGY REPORT (SQ) ---
EXAM DESCRIPTION: TUNNELED CENTRAL LINE; GUIDANCE ULTRASOUND; GUIDANCE FLUOROSCOPIC COMPLETED DATE/TIME: 02/23/2019 9:33 am REASON FOR STUDY: N17.9,N18.5 CKD, ARF N17.9 ACUTE KIDNEY FAILURE, UNSPECIFIED N18.5 CHRONIC KIDNE Y DISEASE, STAGE 5 COMPARISON: None. FLUOROSCOPY TIME: 0.6 minutes Spot images saved to PACS. TECHNIQUE: Intra-operative images acquired during surgical procedure to evaluate progress. NUMBER OF IMAGES: 6 LIMITATIONS: None. FINDINGS: Fluoroscopy was provided for intraoperative procedure. Please refer to the operative repo rt for further discussion. IMPRESSION: IMAGE(S) OBTAINED DURING PROCEDURE. COMMENT: Quality ID 145: Final reports for procedures using fluoroscopy that document radiation exp osure indices, or exposure time and number of fluorographic images (if radiation exposure indices are not available) Please consult full operative report of the attending physician for description of the procedure. TECHNICAL DOCUMENTATION: JOB ID: [id number] [employer]- All Rights Reserved Reading location - IP/workstation name: [email or web address]
--- NOTE | 2019-02-23 10:29 | RADIOLOGY REPORT (SQ) ---
EXAM DESCRIPTION: TUNNELED CENTRAL LINE; GUIDANCE ULTRASOUND; GUIDANCE FLUOROSCOPIC COMPLETED DATE/TIME: 02/23/2019 9:33 am REASON FOR STUDY: N17.9,N18.5 CKD, ARF N17.9 ACUTE KIDNEY FAILURE, UNSPECIFIED N18.5 CHRONIC KIDNE Y DISEASE, STAGE 5 COMPARISON: None. FLUOROSCOPY TIME: 0.6 minutes Spot images saved to PACS. TECHNIQUE: Intra-operative images acquired during surgical procedure to evaluate progress. NUMBER OF IMAGES: 6 LIMITATIONS: None. FINDINGS: Fluoroscopy was provided for intraoperative procedure. Please refer to the operative repo rt for further discussion. IMPRESSION: IMAGE(S) OBTAINED DURING PROCEDURE. COMMENT: Quality ID 145: Final reports for procedures using fluoroscopy that document radiation exp osure indices, or exposure time and number of fluorographic images (if radiation exposure indices are not available) Please consult full operative report of the attending physician for description of the procedure. TECHNICAL DOCUMENTATION: JOB ID: [id number] [employer]- All Rights Reserved Reading location - IP/workstation name: [email or web address]
[2019-02-23 11:30] VITALS: BP 142/61
--- NOTE | 2019-02-23 16:47 | Operative Report ---
Operative Report DATE OF SURGERY: 02/23/19 PREOPERATIVE DIAGNOSIS: #1 renal failure. 2. Diabetes mellitus type 2. 3. H ypertension. POSTOPERATIVE DIAGNOSIS: #1 renal failure. 2. Diabetes mellitus type 2. 3. Hypertension. OPERATION: 1. Ultrasound evaluation of the right internal jugular vein. 2. Insertion of permacath via real-time access in the right internal jugular vein. 3. Angiogram and interpretation. SURGEON: HELGA CARMICHAEL VALET CASHIER: None. ANESTHESIA: Moderate Sedation TISSUE REMOVED OR ALTERED: Not applicable. COMPLICATIONS: None. ESTIMATED BLOOD LOSS: 5 mL. INTRAOPERATIVE FINDINGS: A somewhat small, triangular, easily compressible right internal jugular vein. Somewhat better after infusion of 200 mils of saline. Ultrasound of great value in securing safe and reliable access. Permacatheter placed with tip just down in the right atrium. Angiogram demonstrates smooth flow of contrast through the right atrium, ventricle and pulmonary outflow tract. Easy egress of blood and ingress of heparinized solution to both ports. Postprocedure chest x-ray shows hardware in satisfactory position, no untoward findings. PROCEDURE: After obtaining informed consent, the patient was taken to the [Extruding Machine Operator] and positioned supine. The [right neck] and chest were prepared with chlorhexidine and draped out with sterile linen. After the " universal timeout", in which it was verified that the patient continued to receive antibiotic, the procedure commenced. A steriley sheathed ultrasound probe was used to evaluate the [right internal jugular] vein. Local anesthesia was infiltrated adjacent to the probe. Access into the [right internal jugular] vein was obtained using a micropuncture needle, followed by micropuncture wire and then a micropuncture catheter. This was followed by introduction of a 0.035 guidewire the tip of which was placed down into the inferior vena cava . A 23 cm long [split catheter] was now positioned over the chest and an exit site marked and locally anesthetized ,the catheter was placed between the 2 incisions. Proximally, the catheter was now positioned using a peel-away sheath, after dilation. Easy ingress of heparinized solution and egress of blood obtained through both ports. A completion angiogram was done by injecting contrast. The findings were as dictated. The neck incision was now closed using interrupted 3-0 PDS to the subcutaneous tissues, the catheter was anchored at the exit site using 3-0 PDS. A Biopatch device was now placed adjacent to the catheter. Dressings were applied and the procedure concluded. Copies of the dictated operative report for Dr. Helga Reilly MD.concluded. Copies of the dictated operative report for Dr. Helga Reilly MD.
== END 2019-02-23 10:45 | disposition home or self-care (01) ==
LOC: CCL 06:10
PROVIDERS: ATTEND Surgery
DX: N17.9 Acute kidney failure, unspecified (principal); E11.22 Type 2 diabetes mellitus with diabetic chronic kidney disease; I12.0 Hypertensive chronic kidney disease with stage 5 chronic kidney disease or end stage renal disease; D63.1 Anemia in chronic kidney disease; N18.5 Chronic kidney disease, stage 5; E11.21 Type 2 diabetes mellitus with diabetic nephropathy; E21.3 Hyperparathyroidism, unspecified; E87.2 Acidosis; E55.9 Vitamin D deficiency, unspecified; Z79.82 Long term (current) use of aspirin; Z79.899 Other long term (current) drug therapy; Z01.818 Encounter for other preprocedural examination
CPT/HCPCS: 36415; 85027; 85610; 85730; 80048; 36558; 76937; 77001; C1713; C1752; Q9967; J2250; J3490 ×3; J0690; J3010; J1644

== ENCOUNTER 2019-02-27 08:41 | Emergency (ER) | payer SELFPAY ==
[2019-02-27 10:20] LABS: ABSOLUTE EOSINOPHILS # (AUTO) 1.1 10^3/uL (0.0-0.6); ABSOLUTE LYMPHOCYTES (AUTO) 1.9 10^3/uL (0.5-4.7); ABSOLUTE MONOCYTES (AUTO) 0.6 10^3/uL (0.1-1.4); ABSOLUTE NEUT (AUTO) 6.4 10^3/uL (1.7-8.2); BASOPHILS % (AUTO) 0.3 % (0-2); EOSINOPHILS % (AUTO) 10.9 % (0-6); HEMATOCRIT 33.5 % (36.0-47.0); HEMOGLOBIN 11.1 g/dL (12.0-15.5); LYMPHOCYTES % (AUTO) 19.1 % (13-45); MEAN CORPUSCULAR HEMOGLOBIN 27.9 pg (27.0-33.4); MEAN CORPUSCULAR HGB CONC 33.2 g/dL (32.0-36.0); MEAN CORPUSCULAR VOLUME 84 fl (80-97); MONOCYTES % (AUTO) 6.3 % (3-13); PLATELET COUNT 194 10^3/uL (150-450); RED BLOOD COUNT 3.99 10^6/uL (3.72-5.28); RED CELL DISTRIBUTION WIDTH 15.8 % (11.5-14.0); SEGMENTED NEUTROPHILS % (AUTO) 63.4 % (42-78); TOTAL CELLS COUNTED % (AUTO) 100 %
[2019-02-27 10:28] LABS: ALBUMIN 3.9 g/dL (3.5-5.0); ALKALINE PHOSPHATASE 110 U/L (38-126); ANION GAP 12 (5-19); ASPARTATE AMINO TRANSFERASE 26 U/L (14-36); BILIRUBIN,DIRECT 0.2 mg/dL (0.0-0.4); BILIRUBIN,TOTAL 0.2 mg/dL (0.2-1.3); BLOOD UREA NITROGEN 98 mg/dL (7-20); CALCIUM 10.5 mg/dL (8.4-10.2); CARBON DIOXIDE 25 mmol/L (22-30); CHLORIDE 103 mmol/L (98-107); GLUCOSE 138 mg/dL (75-110); POTASSIUM 4.8 mmol/L (3.6-5.0); TOTAL PROTEIN 7.6 g/dL (6.3-8.2)
--- NOTE | 2019-02-27 10:50 | ER Document Report ---
ED General - General Chief Complaint: Post Surgical Pain Stated Complaint: POST OP PAIN Time Seen by Provider: 02/27/19 09:08 Primary Care Provider: BRENT ALVAREZ MD [Primary Care Provider] - Follow up as needed TRAVEL OUTSIDE OF THE [place] IN LAST 30 DAYS: No - HPI Notes: Patient is a 64-year-old female with end-stage renal disease, who presents to the emergency department for evaluation. She had a tunneled catheter placed in her right neck by Dr. Lockhart last week. She states that it started itching and hurting, she saw more redness, and she became concerned. She denies any fevers or chills. She had nausea and vomiting surrounding the procedure, but has not any further emesis since then. She is scheduled for her first dialysis session on Thursday. She is still urinating, denies any other acute complaints or concerns. - Related Data Allergies/Adverse Reactions: crab Allergy (Severe, Verified 02/27/19 08:42) Anaphylaxis saxagliptin [Saxagliptin] Allergy (Intermediate, Verified 02/27/19 08:42) itching Past Medical History - General Information source: Patient - Social History Smoking Status: Unknown if Ever Smoked Family History: CAD, Malignancy - mother ovarian cancer, Other - Dad- [place] @ 55 Patient has suicidal ideation: No Patient has homicidal ideation: No - Past Medical History Cardiac Medical History: Reports: Hx Hypercholesterolemia, Hx Hypertension Denies: Hx Coronary Artery Disease, Hx Heart Attack Pulmonary Medical History: Reports: Hx Sleep Apnea Denies: Hx Asthma, Hx Bronchitis, Hx COPD, Hx Pneumonia Neurological Medical History: Denies: Hx Cerebrovascular Accident, Hx Seizures Endocrine Medical History: Reports: Hx Diabetes Mellitus Type 2 Renal/ Medical History: Reports: Hx Renal Insufficiency - First dialysis scheduled for 03/01/2019. Denies: Hx Peritoneal Dialysis GI Medical History: Reports: Hx Gastroesophageal Reflux Disease. Denies: Hx Hepatitis, Hx Hiatal Hernia, Hx Ulcer Musculoskeletal Medical History: Reports Hx Arthritis Psychiatric Medical History: Denies: Hx Depression Infectious Medical History: Denies: Hx Hepatitis Past Surgical History: Reports: Hx Abdominal Surgery - cholecystectomy, Hx Gynecologic Surgery - Ectopic . Denies: Hx Hysterectomy, Hx Mastectomy, Hx Open Heart Surgery, Hx Pacemaker - Immunizations Hx Diphtheria, Pertussis, Tetanus Vaccination: No Hx Pneumococcal Vaccination: 11/28/12 Review of Systems - Review of Systems Constitutional: No symptoms reported EENT: No symptoms reported Cardiovascular: No symptoms reported Respiratory: No symptoms reported Gastrointestinal: See HPI Genitourinary: No symptoms reported Musculoskeletal: No symptoms reported Skin: See HPI Neurological/Psychological: No symptoms reported Physical Exam - Vital signs Vitals: Temp Pulse Resp BP Pulse Ox 97.7 F 81 16 185/80 H 96 02/27/19 08:49 02/27/19 08:49 02/27/19 08:49 02/27/19 08:49 02/27/19 08:49 - Notes Notes: Is a 64-year-old female who appears her stated age in no acute distress. Head is normocephalic and atraumatic. Pupils are equal round, reactive to light. Oral mucosa is moist. Examination of the right neck yields what appears to be a tunneled internal jugular catheter in place. Bandages are clean and dry. Bandages taken down in part, no significant surrounding erythema, edema, or induration. She does have one small, approximately 1 cm bulla noted along the anterior border of the trapezius. No significant surrounding erythema at that level either. Full range of motion of the neck without meningismus. Heart is regular rate and rhythm, lungs are clear to station bilaterally. Abdomen soft, nontender, normoactive bowel sounds. Extremities without cyanosis, clubbing. No posterior calf tenderness. Patient is awake and alert, neurological exam is nonfocal. Course - Re-evaluation Re-evalutation: 02/27/19 10:48 Patient presents emergency department for evaluation. She has no significant signs of induration, infection around her newly placed catheter. She does have one small bulla noted. My suspicion is that it might be infected to in part to contact dermatitis of some sort. It does not appear to be to the wound bandaging or tape, as she does not have any significant erythema surrounding the bandages. This is very localized. She has no leukocytosis. Blood cultures are ordered and pending at this time. I am inclined to be conservative and watch it. She is to follow-up on Thursday for dialysis as scheduled. Otherwise she has no significant leukocytosis. No significant electrolyte abnormalities. She is to return to the ED with worsening. 02/27/19 10:53 - Vital Signs Vital signs: Temp Pulse Resp BP Pulse Ox 97.7 F 81 16 185/80 H 96 02/27/19 08:49 02/27/19 08:49 02/27/19 08:49 02/27/19 08:49 02/27/19 08:49 - Laboratory Result Diagrams: 02/27/19 09:48 02/27/19 09:48 Laboratory results interpreted by me: 02/27/19 02/27/19 09:48 09:48 Hgb 11.1 L Hct 33.5 L RDW 15.8 H Eos % (Auto) 10.9 H Absolute Eos (auto) 1.1 H BUN 98 H Creatinine 4.52 H Est GFR ( Amer) 12 L Est GFR (MDRD) Non-Af 10 L Glucose 138 H Calcium 10.5 H Discharge - Discharge Clinical Impression: Postoperative pain Condition: Stable Disposition: HOME, SELF-CARE Additional Instructions: No significant sign of infection was noted today. You do have a small blister, likely secondary to mild irritation. Please keep this area clean. Follow-up as scheduled on Thursday for your first dialysis session. If you develop fevers, vomiting, increased redness, or any other new or concerning symptoms, return imm ediately to the emergency department for evaluation. Referrals: BRENT ALVAREZ MD [Primary Care Provider] - Follow up as needed
[2019-02-27 11:57] VITALS: BP 201/77
== END 2019-02-27 11:57 | disposition home or self-care (01) ==
LOC: ER 08:41
DX: Z46.6 Encounter for fitting and adjustment of urinary device (principal); G89.18 Other acute postprocedural pain; I12.0 Hypertensive chronic kidney disease with stage 5 chronic kidney disease or end stage renal disease; E11.22 Type 2 diabetes mellitus with diabetic chronic kidney disease; N18.6 End stage renal disease
CPT/HCPCS: 36415; 80053; 85025; 87040; 99283

== ENCOUNTER 2019-03-19 08:56 | Emergency (ER) | payer SELFPAY ==
[2019-03-19] MEDS ORDERED: ASPIRIN 81 MG TABLET, CHEWABLE PO ONE (08:59)
--- NOTE | 2019-03-19 09:12 | EKG REPORT ---
SEVERITY:- BORDERLINE ECG - SINUS RHYTHM BORDERLINE R WAVE PROGRESSION, ANTERIOR LEADS : Confirmed by: Tavo Rogers 19-Mar-2019 09:12:00
[2019-03-19 10:06] LABS: ABSOLUTE EOSINOPHILS # (AUTO) 0.5 10^3/uL (0.0-0.6); ABSOLUTE LYMPHOCYTES (AUTO) 1.7 10^3/uL (0.5-4.7); ABSOLUTE MONOCYTES (AUTO) 0.6 10^3/uL (0.1-1.4); ABSOLUTE NEUT (AUTO) 5.8 10^3/uL (1.7-8.2); BASOPHILS % (AUTO) 0.4 % (0-2); EOSINOPHILS % (AUTO) 5.9 % (0-6); HEMATOCRIT 32.8 % (36.0-47.0); LYMPHOCYTES % (AUTO) 20.1 % (13-45); MEAN CORPUSCULAR HEMOGLOBIN 28.4 pg (27.0-33.4); MEAN CORPUSCULAR HGB CONC 33.4 g/dL (32.0-36.0); MEAN CORPUSCULAR VOLUME 85 fl (80-97); MONOCYTES % (AUTO) 6.6 % (3-13); PLATELET COUNT 242 10^3/uL (150-450); RED BLOOD COUNT 3.86 10^6/uL (3.72-5.28); RED CELL DISTRIBUTION WIDTH 15.8 % (11.5-14.0); TOTAL CELLS COUNTED % (AUTO) 100 %; WHITE BLOOD COUNT 8.6 10^3/uL (4.0-10.5)
[2019-03-19 10:10] LABS: ALKALINE PHOSPHATASE 147 U/L (38-126); ANION GAP 9 (5-19); ASPARTATE AMINO TRANSFERASE 60 U/L (14-36); BILIRUBIN,DIRECT 0.2 mg/dL (0.0-0.4); BILIRUBIN,TOTAL 0.3 mg/dL (0.2-1.3); BLOOD UREA NITROGEN 35 mg/dL (7-20); CALCIUM 9.6 mg/dL (8.4-10.2); CARBON DIOXIDE 29 mmol/L (22-30); CHLORIDE 102 mmol/L (98-107); CREATINE KINASE 32 U/L (30-135); GLUCOSE 159 mg/dL (75-110); POTASSIUM 4.3 mmol/L (3.6-5.0); TOTAL PROTEIN 7.8 g/dL (6.3-8.2)
[2019-03-19 10:22] LABS: CREATINE KINASE MB 0.31 ng/mL (<4.55)
[2019-03-19 10:33] LABS: TROPONIN I < 0.012 ng/mL
--- NOTE | 2019-03-19 11:00 | ER Document Report ---
ED General - General Chief Complaint: Chest Pain Stated Complaint: CHEST PAIN Time Seen by Provider: 03/19/19 10:13 Primary Care Provider: BRNET ALVAREZ MD [Primary Care Provider] - Follow up as needed TRAVEL OUTSIDE OF THE [place] IN LAST 30 DAYS: No - HPI Notes: Patient is a 64-year-old female presents emergency department for evaluation of chest pain. She states she got it this morning. She states she has had pain similar to this in the past. She states that it is left-sided, she really cannot describe it for me. It occasionally goes into her left shoulder. She de scribes some mild associated shortness of breath on occasion with it as well. She states she has had this off and on for years. She states that what is new is that it is now exertional. It is sometimes worsened with exertion, but she was not exerting herself when it happened today. No nausea or vomiting. She just started dialysis recently. She did not take any of her medications this morning. On further questioning the patient admits she has not been to dialysis for a week. - Related Data Allergies/Adverse Reactions: crab Allergy (Severe, Verified 02/27/19 08:42) Anaphylaxis saxagliptin [Saxagliptin] Allergy (Intermediate, Verified 02/27/19 08:42) itching Past Medical History - General Information source: Patient - Social History Smoking Status: Never Smoker Family History: CAD, Malignancy - mother ovarian cancer, Other - Dad- [place] @ 55 Patient has suicidal ideation: No Patient has homicidal ideation: No - Past Medical History Cardiac Medical History: Reports: Hx Hypercholesterolemia, Hx Hypertension Denies: Hx Coronary Artery Disease, Hx Heart Attack Pulmonary Medical History: Reports: Hx Sleep Apnea Denies: Hx Asthma, Hx Bronchitis, Hx COPD, Hx Pneumonia Neurological Medical History: Denies: Hx Cerebrovascular Accident, Hx Seizures Endocrine Medical History: Reports: Hx Diabetes Mellitus Type 2 Renal/ Medical History: Reports: Hx End Stage Renal Disease. Denies: Hx Peritoneal Dialysis GI Medical History: Reports: Hx Gastroesophageal Reflux Disease. Denies: Hx Hepatitis, Hx Hiatal Hernia, Hx Ulcer Musculoskeletal Medical History: Reports Hx Arthritis Psychiatric Medical History: Denies: Hx Depression Infectious Medical History: Denies: Hx Hepatitis Past Surgical History: Reports: Hx Abdominal Surgery - cholecystectomy, Hx Gynecologic Surgery - Ectopic . Denies: Hx Hysterectomy, Hx Mastectomy, Hx Open Heart Surgery, Hx Pacemaker - Immunizations Hx Diphtheria, Pertussis, Tetanus Vaccination: No Hx Pneumococcal Vaccination: 11/28/12 Review of Systems - Review of Systems Constitutional: No symptoms reported EENT: No symptoms reported Cardiovascular: See HPI Respiratory: No symptoms reported Gastrointestinal: No symptoms reported Genitourinary: No symptoms reported Musculoskeletal: No symptoms reported Skin: No symptoms reported Neurological/Psychological: No symptoms reported Physical Exam - Vital signs Vitals: Pulse Ox 98 03/19/19 08:59 - Notes Notes: Vital signs reviewed, please refer to chart. Head is normocephalic, atraumatic. Pupils equal round, reactive to light. Neck is supple without meningismus. Heart is regular rate and rhythm. Lungs are clear to auscultation bilaterally. Tunneled catheter in the right chest without signs of surrounding erythema, edema, or induration. Abdomen is soft, nontender, normoactive bowel sounds throughout. Extremities without cyanosis, clubbing. Posterior calves are nontender. Peripheral pulses are equal. Skin is warm and dry. Patient is awake, alert, neurological exam is nonfocal. Course - Re-evaluation Re-evalutation: 03/19/19 10:59 Patient presents emergency department for evaluation. Laboratory investigations were obtained. She is placed on a radiation monitor. She is hypertensive, but this is not unexpected given the fact that this is a dialysis patient who has not yet taken her antihypertensives. She is chest pain-free here. Her EKG is unchanged. Laboratory investigations failed to reveal any significant abnormality, including no signs of hyperkalemia. Will contact primary care provider to discuss. 03/19/19 14:52 Laboratory investigations revealed a troponin that was only mildly higher than her first, but certainly well within normal range. I spoke with Dr. Ahmadi, on-call for Dr. Alvarez. We discussed this patient and her symptoms. He does not feel comfortable admitting the patient. She does have significant risk factors, heart score of 4. He is concerned as she has not had dialysis in over a week. I did discuss with him that at this point she has no significant electrolyte abnormalities, she is still making urine, no pulmonary edema. He does not have nephrology back-up at all. He states they are not expected until Thursday. Given this information he will not accept the patient for admission. Will contact [facility] for further care. 03/19/19 16:[address] Bowen, hospitalist at [facility]. She did accept the patient. Patient was treated here with aspirin and nitroglycerin for chest pain. Her blood pressure was initially high, but she had not taken her antihypertensives as she was expecting dialysis. She did have blood pressures in the 160s 170s while here. At this point her blood pressure is significantly elevated. I will go ahead and treat her with her antihypertensive, she is given a dose of hydralazine here. We will transfer the patient to [facility] for further care. - Vital Signs Vital signs: Temp Pulse Resp BP Pulse Ox 98.3 F 20 219/86 H 99 03/19/19 09:45 03/19/19 15:01 03/19/19 15:01 03/19/19 15:01 - Laboratory Result Diagrams: 03/19/19 09:38 03/19/19 09:38 Laboratory results interpreted by me: 03/19/19 03/19/19 09:38 09:38 Hgb 11.0 L Hct 32.8 L RDW 15.8 H BUN 35 H Creatinine 2.97 H Est GFR ( Amer) 19 L Est GFR (MDRD) Non-Af 16 L Glucose 159 H AST 60 H Alkaline Phosphatase 147 H - Diagnostic Test Radiology reviewed: Reports reviewed Radiology results interpreted by me: Chest X-Ray 03/19/19 11:00 IMPRESSION: NO ACUTE RADIOGRAPHIC FINDING IN THE CHEST. Discharge - Discharge Clinical Impression: ESRD (end stage renal disease) on dialysis Chest pain Qualifiers: Chest pain type: unspecified Qualified Code(s): R07.9 - Chest pain, unspecified HTN (hypertension) Qualifiers: Hypertension type: unspecified Qualified Code(s): I10 - Essential (primary) hypertension Condition: Stable Disposition: [facility] Admitting Provider: Dr. Navarrete Referrals: BRENT ALVAREZ MD [Primary Care Provider] - Follow up as needed
--- NOTE | 2019-03-19 11:37 | RADIOLOGY REPORT (SQ) ---
EXAM DESCRIPTION: CHEST SINGLE VIEW COMPLETED DATE/TIME: 03/19/2019 11:22 am REASON FOR STUDY: chest pain COMPARISON: 01/30/2019 EXAM PARAMETERS: NUMBER OF VIEWS: One view. TECHNIQUE: Single frontal radiographic view of the chest acquired. RADIATION DOSE: NA LIMITATIONS: None. FINDINGS: LUNGS AND PLEURA: No opacities, masses or pneumothorax. No pleural effusion. MEDIASTINUM AND HILAR STRUCTURES: No masses. Contour normal. HEART AND VASCULAR STRUCTURES: Heart normal in size. Normal vasculature. BONES: No acute findings. HARDWARE: Dual lumen venous access catheter tips in expected location. OTHER: No other significant finding. IMPRESSION: NO ACUTE RADIOGRAPHIC FINDING IN THE CHEST. TECHNICAL DOCUMENTATION: JOB ID: [id number] [employer]- All Rights Reserved Reading location - IP/workstation name: [email or web address]
[2019-03-19] MEDS ORDERED: NITROGLYCERIN 2% OINTMENT 1 GM PACKET TP ONE (15:34)
[2019-03-19] MEDS ORDERED: HYDRALAZINE HCL 10 MG TABLET PO SCH (16:00)
[2019-03-19 17:04] VITALS: BP 208/81
== END 2019-03-19 17:45 | disposition short-term general hospital (02) ==
LOC: ER 08:56
DX: R07.9 Chest pain, unspecified (principal); I12.0 Hypertensive chronic kidney disease with stage 5 chronic kidney disease or end stage renal disease; E11.22 Type 2 diabetes mellitus with diabetic chronic kidney disease; N18.6 End stage renal disease; Z99.2 Dependence on renal dialysis; R06.02 Shortness of breath; Z87.892 Personal history of anaphylaxis; Z91.013 Allergy to seafood; Z88.8 Allergy status to other drugs, medicaments and biological substances
CPT/HCPCS: 93005; 99285; 36415; 82553; 82550; 85025; 80053; 84484; 71045; 93010; J3490

== ENCOUNTER 2019-05-17 04:16 | Observation (INO) | payer MEDICAID ==
[2019-05-17] MEDS ORDERED: ASPIRIN 81 MG TABLET, CHEWABLE PO ONE (04:55)
--- NOTE | 2019-05-17 04:56 | ER Document Report ---
ED Medical Screen (RME) - General Chief Complaint: Chest Pain Stated Complaint: CHEST PAINS Time Seen by Provider: 05/17/19 04:48 Primary Care Provider: BRENT ALVAREZ MD [Primary Care Provider] - Follow up as needed Notes: 64-year-old female with chief complaint of chest pain. States this is been going on for about 24 hours, she woke up with it yesterday. She states pain is at times much worse but has not gone away. Pain does not really radiate, is located mainly on the left side. She does report occasional cough, denies abdominal pain, nausea or vomiting, fever/chills, shortness of breath. She states she had a full work-up recently including stress testing, echocardiogram, etc. and this was all negative. She has been recently placed on dialysis and she is due for dialysis this afternoon. She states currently she is not feeling pain like she did earlier. TRAVEL OUTSIDE OF THE [place] IN LAST 30 DAYS: No - Related Data Allergies/Adverse Reactions: crab Allergy (Severe, Verified 05/17/19 04:19) Anaphylaxis saxagliptin [Saxagliptin] Allergy (Intermediate, Verified 05/17/19 04:19) itching Past Medical History - Past Medical History Cardiac Medical History: Reports: Hx Hypercholesterolemia, Hx Hypertension Denies: Hx Coronary Artery Disease, Hx Heart Attack Pulmonary Medical History: Reports: Hx Sleep Apnea Denies: Hx Asthma, Hx Bronchitis, Hx COPD, Hx Pneumonia Neurological Medical History: Denies: Hx Cerebrovascular Accident, Hx Seizures Endocrine Medical History: Reports: Hx Diabetes Mellitus Type 2 Renal/ Medical History: Reports: Hx End Stage Renal Disease. Denies: Hx Peritoneal Dialysis GI Medical History: Reports: Hx Gastroesophageal Reflux Disease. Denies: Hx Hepatitis, Hx Hiatal Hernia, Hx Ulcer Musculoskeltal Medical History: Reports Hx Arthritis Psychiatric Medical History: Denies: Hx Depression Infectious Medical History: Denies: Hx Hepatitis Past Surgical History: Reports: Hx Abdominal Surgery - cholecystectomy, Hx Gynecologic Surgery - Ectopic . Denies: Hx Hysterectomy, Hx Mastectomy, Hx Open Heart Surgery, Hx Pacemaker - Immunizations Hx Diphtheria, Pertussis, Tetanus Vaccination: No Physical Exam - General General appearance: Appears well In distress: None - Respiratory Respiratory status: No respiratory distress Breath sounds: Normal. No: Decreased air movement, Wheezing Course - Re-evaluation Re-evalutation: I have greeted and performed a rapid initial assessment of this patient. A comprehensive ED assessment and evaluation of the patient, analysis of test results and completion of the medical decision making process will be conducted by additional ED providers. - Laboratory Result Diagrams: 05/17/19 04:41 05/17/19 04:41 Doctor's Discharge - Discharge Referrals: BRENT ALVAREZ MD [Primary Care Provider] - Follow up as needed
[2019-05-17 05:06] LABS: ABSOLUTE BASOPHILS # (AUTO) 0.1 10^3/uL (0.0-0.2); ABSOLUTE EOSINOPHILS # (AUTO) 0.5 10^3/uL (0.0-0.6); ABSOLUTE LYMPHOCYTES (AUTO) 2.5 10^3/uL (0.5-4.7); ABSOLUTE MONOCYTES (AUTO) 0.8 10^3/uL (0.1-1.4); ABSOLUTE NEUT (AUTO) 7.7 10^3/uL (1.7-8.2); BASOPHILS % (AUTO) 0.5 % (0-2); EOSINOPHILS % (AUTO) 4.6 % (0-6); HEMATOCRIT 36.9 % (36.0-47.0); HEMOGLOBIN 12.2 g/dL (12.0-15.5); LYMPHOCYTES % (AUTO) 21.6 % (13-45); MEAN CORPUSCULAR HEMOGLOBIN 29.2 pg (27.0-33.4); MEAN CORPUSCULAR VOLUME 89 fl (80-97); MONOCYTES % (AUTO) 6.8 % (3-13); PLATELET COUNT 266 10^3/uL (150-450); RED BLOOD COUNT 4.17 10^6/uL (3.72-5.28); RED CELL DISTRIBUTION WIDTH 14.6 % (11.5-14.0); SEGMENTED NEUTROPHILS % (AUTO) 66.5 % (42-78); TOTAL CELLS COUNTED % (AUTO) 100 %; WHITE BLOOD COUNT 11.6 10^3/uL (4.0-10.5)
[2019-05-17 05:24] LABS: ALBUMIN 3.9 g/dL (3.5-5.0); ALKALINE PHOSPHATASE 153 U/L (38-126); ANION GAP 15 (5-19); ASPARTATE AMINO TRANSFERASE 17 U/L (14-36); BILIRUBIN,DIRECT 0.2 mg/dL (0.0-0.4); BILIRUBIN,TOTAL 0.3 mg/dL (0.2-1.3); BLOOD UREA NITROGEN 64 mg/dL (7-20); CALCIUM 9.5 mg/dL (8.4-10.2); CARBON DIOXIDE 24 mmol/L (22-30); CHLORIDE 100 mmol/L (98-107); CREATINE KINASE 32 U/L (30-135); GLUCOSE 300 mg/dL (75-110); POTASSIUM 4.1 mmol/L (3.6-5.0); TOTAL PROTEIN 7.7 g/dL (6.3-8.2)
[2019-05-17 05:36] LABS: CREATINE KINASE MB 0.5 ng/mL (<4.55); TROPONIN I 0.022 ng/mL
--- NOTE | 2019-05-17 06:00 | RADIOLOGY REPORT (SQ) ---
EXAM DESCRIPTION: XR CHEST 1 VIEW COMPLETED DATE/TME: 05/17/2019 04:44 CLINICAL HISTORY: 64 years, Female, chest pain COMPARISON: 03/19/2019 chest NUMBER OF VIEWS: 1 TECHNIQUE: Portable chest LIMITATIONS: None. FINDINGS: The heart size is normal. Atheromatous change thoracic aorta. Central venous catheter in place. Osteopenia. Lungs clear. No pneumothorax IMPRESSION: No acute cardiopulmonary process copyright 2010 [employer]- All Rights Reserved
--- NOTE | 2019-05-17 07:00 | ER Document Report ---
ED Cardiac - General Chief Complaint: Chest Pain Stated Complaint: CHEST PAINS Time Seen by Provider: 05/17/19 04:48 Primary Care Provider: BRENT ALVAREZ MD [Primary Care Provider] - Follow up as needed Notes: 64-year-old female with chief complaint of chest pain. States this is been going on for about 24 hours, she woke up with it yesterday. She states pain is at times much worse but has not gone away. Pain does not really radiate, is located mainly on the left side. She does report occasional cough, denies abdominal pain, nausea or vomiting, fever/chills, shortness of breath. She states she had a full work-up recently including stress testing, echocardiogram, etc. and this was all negative. She has been recently placed on dialysis and she is due for dialysis this afternoon. She states currently she is not feeling pain like she did earlier. TRAVEL OUTSIDE OF THE [place] IN LAST 30 DAYS: No - Related Data Allergies/Adverse Reactions: crab Allergy (Severe, Verified 05/17/19 04:19) Anaphylaxis saxagliptin [Saxagliptin] Allergy (Intermediate, Verified 05/17/19 04:19) itching Past Medical History - Social History Smoking Status: Unknown if Ever Smoked Family History: CAD, Malignancy - mother ovarian cancer, Other - Dad- [place] @ 55 Patient has suicidal ideation: No Patient has homicidal ideation: No - Past Medical History Cardiac Medical History: Reports: Hx Hypercholesterolemia, Hx Hypertension Denies: Hx Coronary Artery Disease, Hx Heart Attack Pulmonary Medical History: Reports: Hx Sleep Apnea Denies: Hx Asthma, Hx Bronchitis, Hx COPD, Hx Pneumonia Neurological Medical History: Denies: Hx Cerebrovascular Accident, Hx Seizures Endocrine Medical History: Reports: Hx Diabetes Mellitus Type 2 Renal/ Medical History: Reports: Hx End Stage Renal Disease. Denies: Hx Peritoneal Dialysis GI Medical History: Reports: Hx Gastroesophageal Reflux Disease. Denies: Hx Hepatitis, Hx Hiatal Hernia, Hx Ulcer Musculoskeletal Medical History: Reports Hx Arthritis Psychiatric Medical History: Denies: Hx Depression Infectious Medical History: Denies: Hx Hepatitis Past Surgical History: Reports: Hx Abdominal Surgery - cholecystectomy, Hx Gynecologic Surgery - Ectopic . Denies: Hx Hysterectomy, Hx Mastec magdy, Hx Open Heart Surgery, Hx Pacemaker - Immunizations Hx Diphtheria, Pertussis, Tetanus Vaccination: No Hx Pneumococcal Vaccination: 11/28/12 Review of Systems - Review of Systems Constitutional: denies: Chills, Fever, Weight gain EENT: No symptoms reported Cardiovascular: Chest pain, Dyspnea. denies: Palpitations, Heart racing, Orthopnea, Dizziness, Lightheaded, Edema Respiratory: Cough, Short of breath. denies: Hurts to breathe, Hemoptysis, Wheezing Gastrointestinal: No symptoms reported Hematologic/Lymphatic: No symptoms reported Neurological/Psychological: No symptoms reported -: Yes All other systems reviewed and negative Physical Exam - Vital signs Vitals: Resp Pulse Ox 11 L 96 05/17/19 05:00 05/17/19 05:00 - Notes Notes: GENERAL_APPEARANCE: well_nourished, alert, cooperative. VITALS: reviewed, see vital signs table. HEAD: no_swelling\tenderness on the head. EYES: PERRL, EOMI, conjunctiva_clear. NOSE: no_nasal_discharge. MOUTH: (-)decreased moisture. THROAT: no_tonsilar_inflammation, no_airway_obstruction. no_lymphadenopathy NECK: supple, no_neck_tenderness, (-)thyromegaly. BACK: no_back_tenderness. CHEST_WALL: Left chest wall_chest_tenderness. No crepitus or subcutaneous emphysema, dialysis port right subclavian area LUNGS: no_wheezing, no_rales, no_rhonchi, (-)accessory muscle use, good air exchange bilateral. HEART: normal_rate, normal_rhythm, normal_S1, normal_S2, (-)S3, (-)S4, no_murmur, no_rub. ABDOMEN: normal_BS, soft, no_abd_tenderness, (-)guarding, (-)rebound, no_organomegaly, no_abd_masses. EXTREMITIES: strength 5/5 in all_extremities, good pulses in all_extremities, no_swelling\tenderness in the extremities, trace_edema. SKIN: warm, dry, good_color, no_rash. MENTAL_STATUS: speech_clear, oriented_X_3, normal_affect, responds_appropriately to questions. Course - Re-evaluation Re-evalutation: 05/17/19 06:59 64-year-old female presents to ER complaining of chest discomfort. The pain is in her left chest. It does not radiate. There is a component of reproducibility here. No crepitus and simultaneous emphysema is noted EKG and first troponin are negative. The patient states she has been having a cough but denies any fever chills cough is been nonproductive there is been no hemoptysis. This may be due to the cough and musculoskeletal nature we will get a 3-hour troponin. 05/17/19 09:06 The patient's troponin nearly doubled in 3 hours. However she is pain-free now she has had aspirin and Nitropaste. I spoke with her primary care doctor Dr. Alvarez will place the patient in observation. The patient will get dialyzed here we do have dialysis beds and we are going to speak with Dr. Bates. Likely the patient troponin is renal mediated however with nearly doubling in 3 hours were playing it extra cautious. Patient is okay with the plan will keep her under watch. - Vital Signs Vital signs: Temp Pulse Resp BP Pulse Ox 98.2 F 20 159/74 H 96 05/17/19 05:11 05/17/19 08:01 05/17/19 08:01 05/17/19 06:01 - Laboratory Result Diagrams: 05/17/19 04:41 05/17/19 04:41 Laboratory results interpreted by me: 05/17/19 05/17/19 04:41 04:41 WBC 11.6 H RDW 14.6 H BUN 64 H Creatinine 4.49 H Est GFR ( Amer) 12 L Est GFR (MDRD) Non-Af 10 L Glucose 300 H Alkaline Phosphatase 153 H - Diagnostic Test Radiology reviewed: Reports reviewed Radiology results interpreted by me: 05/17/19 06:59 Chest X-Ray 05/17/19 04:44 IMPRESSION: No acute cardiopulmonary process copyright 2011 [employer]- All Rights Reserved - EKG Interpretation by Or EKG shows normal: Sinus rhythm Rate: Normal When compared to previous EKG there are: No significant change Additional EKG results interpreted by me: 05/17/19 06:59 Occasional PAC Discharge - Discharge Clinical Impression: CKD stage 4 due to type 2 diabetes mellitus Chest pain Qualifiers: Chest pain type: other chest pain Qualified Code(s): R07.89 - Other chest pain; R07.8 - Other chest pain Condition: Good Disposition: ADMITTED OBSERVATION Admitting Provider: Linda Unit Admitted: Telemetry Referrals: BRENT ALVAREZ MD [Primary Care Provider] - Follow up as needed
[2019-05-17] MEDS ORDERED: NITROGLYCERIN 2% OINTMENT 1 GM PACKET TP ONE (08:40)
[2019-05-17] MEDS ORDERED: DEXTROSE 50%-WATER SYRINGE 25 GM/50 ML DOSE IV PRN (15:30)
[2019-05-17] MEDS ORDERED: DEXTROSE 40% GEL 15 GM TUBE X 2 PO PRN (15:30)
[2019-05-17] MEDS ORDERED: DEXTROSE 50%-WATER SYRINGE 12.5 GM/25 ML DOSE IV PRN (15:30)
[2019-05-17] MEDS ORDERED: GLUCAGON,HUMAN RECOMB 1 MG INJ IM PRN (15:30)
[2019-05-17] MEDS ORDERED: DEXTROSE 40% GEL 15 GM TUBE PO PRN (15:30)
[2019-05-17] MEDS: INSULIN LISPRO 100 UNIT/ML 3 ML VIAL SUBCUT SCH ×2 (16:52→21:26)
[2019-05-17] MEDS: DOCUSATE SODIUM 100 MG CAPSULE PO SCH (17:42)
[2019-05-17] MEDS: HYDRALAZINE HCL 25 MG TABLET PO SCH (17:42)
[2019-05-17 18:02] LABS: CREATINE KINASE MB 0.31 ng/mL (<4.55); TROPONIN I 0.014 ng/mL
--- NOTE | 2019-05-17 18:27 | EKG REPORT ---
SEVERITY:- OTHERWISE NORMAL ECG - SINUS RHYTHM ATRIAL PREMATURE COMPLEX : Confirmed by: Tavo Rogers 17-May-2019 18:26:49
[2019-05-17] MEDS: ISOSORBIDE DINITRATE 20 MG TABLET PO SCH (21:26)
[2019-05-17] MEDS ORDERED: ATORVASTATIN CALCIUM 40 MG TABLET PO SCH (22:00)
[2019-05-17 22:17] LABS: CREATINE KINASE MB 0.26 ng/mL (<4.55); TROPONIN I 0.017 ng/mL
--- NOTE | 2019-05-17 23:54 | PDOC H&P ---
History of Present Illness Admission Date/PCP: 05/17/19 09:11 [facility] Patient complains of: Chest pain History of Present Illness: SHAILESH SALINAS I is a 64 year old female patient known to my practice who presented to the ED with 2 days history of chest pain. Patient localized pain to left side of her chest. No associated radiation, shortness of breath, p alpitation, or diaphoresis. HSe reported intermittent unproductive cough. No chest congestion, nasal or sinus congestion. No abdominal pain, nausea or vomiting. No fever or chills. She was recently started on hemodialysis for ESRD. Her initial evaluation in the ED was not very revealing except for cardiac enzymes in the indeterminate range. She did reported that her recent extensive cardiac evaluation was unrevealing including echocardiogram and stress test. She was advised hospitalization on observation bed for further evaluation and management of her chest pain. She is due for hemodialysis today. I will request for car cleaning supervisor input in her care regarding dialysis service. Her morbidities are as listed below. Past Medical History Cardiac Medical History: Reports: Hyperlipidema, Hypertension Denies: Coronary Artery Disease, Myocardial Infarction Pulmonary Medical History: Reports: Sleep Apnea Denies: Asthma, Bronchitis, Chronic Obstructive Pulmonary Disease (COPD), Pneumonia Neurological Medical History: Denies: Seizures Endocrine Medical History: Reports: Diabetes Mellitus Type 2 Renal/ Medical History: Reports: End Stage Renal Disease GI Medical History: Reports: Gastroesophageal Reflux Disease Denies: Hepatitis, Hiatal Hernia Musculoskeltal Medical History: Reports: Arthritis Psychiatric Medical History: Denies: Depression Hematology: Denies: Anemia, Sickle Cell Disease Past Surgical History Past Surgical History: Denies: Amputation, Hysterectomy, Mastectomy, Pacemaker Social History Smoking Status: Unknown if Ever Smoked Frequency of Alcohol Use: None Hx Recreational Drug Use: No Drugs: None Hx Prescription Drug Abuse: No - Advance Directive Resuscitation Status: Full Code Family History Family History: CAD, Malignancy - mother ovarian cancer, Other - Dad- CO @ 55 Parental Family History Reviewed: Yes Children Family History Reviewed: Yes Sibling(s) Family History Reviewed.: Yes Medication/Allergy Home Medications: Amlodipine Besylate [Norvasc 10 mg Tablet] 10 mg PO DAILY 05/17/19 Atorvastatin Calcium [Lipitor 40 mg Tablet] 40 mg PO QHS 05/17/19 Calcitriol [Rocaltrol 0.25 mcg Capsule] 0.25 mcg PO DAILY 05/17/19 Calcium Acetate [Phoslo 667 mg Capsule] 1,334 mg PO AC 05/17/19 Docusate Sodium [Colace 100 mg Capsule] 100 mg PO BID 05/17/19 Furosemide [Lasix 40 mg Tablet] 40 mg PO DAILY 05/17/19 Hydralazine HCl [Apresoline 25 mg Tablet] 25 mg PO TID 05/17/19 Isosorbide Dinitrate [Isordil Titradose 20 mg Tablet] 20 mg PO Q8 05/17/19 Ranitidine HCl [Zantac] 150 mg PO DAILY 05/17/19 Sodium Bicarbonate [Sodium Bicarbonate 650 mg Tablet] 650 mg PO DAILY 05/17/19 Allergies/Adverse Reactions: crab Allergy (Severe, Verified 05/17/19 04:19) Anaphylaxis saxagliptin [Saxagliptin] Allergy (Intermediate, Verified 05/17/19 04:19) itching Review of Systems Constitutional: ABSENT: chills, fever(s), headache(s), weight gain, weight loss Eyes: ABSENT: visual disturbances Ears: ABSENT: hearing changes Nose, Mouth, and Throat: ABSENT: as per HPI, headache(s), mouth pain, sore throat, vertigo, other Cardiovascular: PRESENT: chest pain. ABSENT: as per HPI, dyspnea on exertion, edema, orthropnea, palpitations, other Respiratory: PRESENT: cough. ABSENT: as per HPI, dyspnea, hemoptysis, sputum, other Gastrointestinal: ABSENT: abdominal pain, constipation, diarrhea, hematemesis, hematochezia, nausea, vomiting Genitourinary: ABSENT: dysuria, hematuria Musculoskeletal: ABSENT: joint swelling Integumentary: ABSENT: diaphoresis, pruritus, rash Neurological: ABSENT: abnormal gait, abnormal speech, confusion, dizziness, focal weakness, syncope Psychiatric: ABSENT: anxiety, depression, homidical ideation, suicidal ideation Endocrine: ABSENT: cold intolerance, heat intolerance, menstrual abnormalities, polydipsia, polyuria Hematologic/Lymphatic: ABSENT: easy bleeding, easy bruising, lymphadenopathy Allergic/Immunologic: ABSENT: seasonal rhinorrhea Physical Exam Vital Signs: Temp Pulse Resp BP Pulse Ox 98.1 F 73 18 167/68 H 100 05/17/19 15:11 05/17/19 15:11 05/17/19 15:11 05/17/19 15:11 05/17/19 15:11 Intake & Output 05/16/19 05/17/19 05/18/19 06:59 06:59 06:59 Intake Total 240 Balance 240 Weight 69.4 kg General appearance: PRESENT: no acute distress, well-developed, well-nourished Head exam: PRESENT: atraumatic, normocephalic Eye exam: PRESENT: conjunctiva pink, EOMI, PERRLA. ABSENT: scleral icterus Ear exam: PRESENT: normal external ear exam Mouth exam: PRESENT: moist Respiratory exam: PRESENT: clear to auscultation marge Cardiovascular exam: PRESENT: RRR. ABSENT: diastolic murmur, rubs, systolic murmur Vascular exam: PRESENT: normal capillary refill. ABSENT: pallor GI/Abdominal exam: PRESENT: normal bowel sounds, soft. ABSENT: distended, guarding, mass, organolmegaly, rebound, tenderness Rectal exam: PRESENT: deferred Extremities exam: ABSENT: joint swelling, pedal edema Musculoskeletal exam: PRESENT: other - riht anteriro chest wall vascular access dressing is satisfactory.. ABSENT: tenderness Neurological exam: PRESENT: alert, awake, oriented to person, oriented to place, oriented to time, oriented to situation, CN II-XII grossly intact. ABSENT: motor sensory deficit Psychiatric exam: PRESENT: appropriate affect, normal mood. ABSENT: homicidal ideation, suicidal ideation Skin exam: PRESENT: dry, warm Results Laboratory Results: 05/17/19 04:41 05/17/19 04:41 05/17/19 05/17/19 04:41 04:41 WBC 11.6 H RBC 4.17 Hgb 12.2 Hct 36.9 MCV 89 MCH 29.2 MCHC 33.0 RDW 14.6 H Plt Count 266 Seg Neutrophils % 66.5 Sodium 138.8 Potassium 4.1 Chloride 100 Carbon Dioxide 24 Anion Gap 15 BUN 64 H Creatinine 4.49 H Est GFR ( Amer) 12 L Glucose 300 H Calcium 9.5 Total Bilirubin 0.3 AST 17 Alkaline Phosphatase 153 H Total Protein 7.7 Albumin 3.9 05/17/19 05/17/19 05/17/19 04:41 04:41 07:42 Creatine Kinase 32 CK-MB (CK-2) 0.50 Troponin I 0.022 0.036 05/17/19 05/17/19 16:43 16:43 Creatine Kinase 33 CK-MB (CK-2) 0.31 Troponin I 0.014 Impressions: Chest X-Ray 05/17/19 04:44 IMPRESSION: No acute cardiopulmonary process copyright 2011 [employer]- All Rights Reserved Assessment & Plan - Diagnosis (1) Chest pain Qualifiers: Chest pain type: unspecified Qualified Code(s): R07.9 - Chest pain, u nspecified Is this a current diagnosis for this admission?: Yes Plan: See admitting attending physician orders for details about care plan. (2) ESRD (end stage renal disease) on dialysis Is this a current diagnosis for this admission?: Yes Plan: See admitting attending physician orders for details about care plan. (3) Type 2 diabetes mellitus Qualifiers: Diabetes mellitus assisted insulin use: with salvage determiner use Diabetes mellitus complication status: with kidney complications Diabetes mellitus complication detail: with chronic kidney disease Chronic kidney disease stage: stage 4 (severe) Qualified Code(s): E11.22 - Type 2 diabetes mellitus with diabetic chronic kidney disease; N18.4 - Chronic kidney disease, stage 4 (severe); Z79.4 - salvage determiner (current) use of insulin Is this a current diagnosis for this admission?: Yes Plan: See admitting attending physician orders for details about care plan. (4) HTN (hypertension) Qualifiers: Hypertension type: essential hypertension Qualified Code(s): I10 - Essential (primary) hypertension Is this a current diagnosis for this admission?: Yes Plan: See admitting attending physician orders for details about care plan. (5) HLD (hyperlipidemia) Qualifiers: Hyperlipidemia type: unspecified Qualified Code(s): E78.5 - Hyperlipidemia, unspecified Is this a current diagnosis for this admission?: Yes Plan: See admitting attending physician orders for details about care plan. (6) GERD (gastroesophageal reflux disease) Qualifiers: Esophagitis presence: esophagitis presence not specified Qualified Code(s): K21.9 - Gastro-esophageal reflux disease without esophagitis Is this a current diagnosis for this admission?: Yes Plan: See admitting attending physician orders for details about care plan. - Time Time Spent: 50 to 70 Minutes Medications reviewed and adjusted accordingly: Yes Anticipated discharge: Home Within: Other - Inpatient Certification Based on my medical assessment, after consideration of the patient's comorbidities, presenting symptoms, or acuity I expect that the services needed warrant INPATIENT care.: Yes I certify that my determination is in accordance with my understanding of Medicare's requirements for reasonable and necessary INPATIENT services [42 CFR 412.3e].: Yes Medical Necessity: Significant Comorbidiites Make Outpatient Treatment Too Risky, Need Close Monitoring Due to Risk of Patient Decompensation, Need For Continuous Telemetry Monitoring, Risk of Complication [facility], Risk of Diagnosis Which Will Require Inpatient Eval/Care/Monitoring Post Hospital Care: D/C Violin Repairer Documentation - Plan Summary Plan Summary: See admitting attending physician orders for details about care plan.
[2019-05-18 04:08] LABS: CREATINE KINASE MB 0.31 ng/mL (<4.55); TROPONIN I 0.013 ng/mL
[2019-05-18] MEDS: ISOSORBIDE DINITRATE 20 MG TABLET PO SCH ×2 (06:36→14:09)
[2019-05-18 09:23] VITALS: BP 192/61
[2019-05-18] MEDS ORDERED: (PENDING PHARMACY ID) (Ranitidine Hcl [Zantac] 150 MG) PO SCH (10:00)
[2019-05-18] MEDS ORDERED: FUROSEMIDE 40 MG TABLET PO SCH (10:00)
[2019-05-18] MEDS ORDERED: AMLODIPINE BESYLATE 10 MG TABLET PO SCH (10:00)
[2019-05-18] MEDS ORDERED: SODIUM BICARBONATE 650 MG TABLET PO SCH (10:00)
[2019-05-18] MEDS ORDERED: FAMOTIDINE 20 MG TABLET PO SCH (10:00)
[2019-05-18] MEDS ORDERED: CALCITRIOL 0.25 MCG CAPSULE PO SCH (10:00)
[2019-05-18] MEDS ORDERED: HEPARIN SOD (PORCINE) 1,000 UNIT/ML 10 ML VIAL IV PRN ×2 (10:23→10:51)
--- NOTE | 2019-05-18 11:43 | PDOC CONSULTATION ---
Consultation Consult Date: 05/18/19 Provider Consulted: Dre HUA Consult reason:: ESRD for hemodialysis History of Present Illness Admission Date/PCP: 05/17/19 09:11 BRENT ALVAREZ History of Present Illness: SHAILESH SALINAS I is a 64 year old female with history of diabetes mellitus hypert ension and ESRD on hemodialysis was admitted with history of chest pain. She apparently was begun on dialysis in February through a right IJ catheter. She complains of this vague centralized chest pain with no radiation into the arms or into the neck for the last couple of days prior to admission. There is no precipitating or relieving factors. She has been having intermittent dry cough without any history of fever or chills. She says this pain has been coming and going for quite some time. She has had fairly extensive evaluations including stress test couple of times in the last 1 year which apparently was negative as per patient. Also I did review a CT scan and echocardiogram done in January in this hospital. She has some mitral annular calcification with mild to moderate MR. No apparent mitral valve prolapse. Presently she is chest pain-free as she is being worked up to rule out CAD. She is presently undergoing dialysis without any issues. Vital signs are stable. Labs and medications were reviewed. Dialysis orders were reviewed with the treating dialysis nurse. Past Medical History Cardiac Medical History: Reports: Hyperlipidemia, Hypertension-primary Denies: Coronary Artery Disease, Myocardial Infarction Pulmonary Medical History: Reports: Sleep Apnea Denies: Asthma, Bronchitis, Chronic Obstructive Pulmonary Disease (COPD), Pneumonia Neurological Medical History: Denies: Seizures Endocrine Medical History: Reports: Diabetes Mellitus Type 2 Renal/ Medical History: Reports: End Stage Renal Disease, Secondary Hyp erparathyroidism GI Medical History: Reports: Gastroesophageal Reflux Disease Denies: Hepatitis, Hiatal Hernia Musculoskeltal Medical History: Reports: Arthritis Psychiatric Medical History: Denies: Depression Hematology Medical History: Reports Anemia of Chronic Kidney Disease Past Surgical History Past Surgical History: Denies: Hysterectomy, Mastectomy, Pacemaker Social History Smoking Status: Unknown if Ever Smoked Frequency of Alcohol Use: None Hx Recreational Drug Use: No Drugs: None Hx Prescription Drug Abuse: No - Advance Directive Resuscitation Status: Full Code Family History Parental Family History Reviewed: No Children Family History Reviewed: No Sibling(s) Family History Reviewed.: No Medication/Allergy Home Medications: Amlodipine Besylate [Norvasc 10 mg Tablet] 10 mg PO DAILY 05/17/19 Atorvastatin Calcium [Lipitor 40 mg Tablet] 40 mg PO QHS 05/17/19 Calcitriol [Rocaltrol 0.25 mcg Capsule] 0.25 mcg PO DAILY 05/17/19 Calcium Acetate [Phoslo 667 mg Capsule] 1,334 mg PO AC 05/17/19 Docusate Sodium [Colace 100 mg Capsule] 100 mg PO BID 05/17/19 Furosemide [Lasix 40 mg Tablet] 40 mg PO DAILY 05/17/19 Hydralazine HCl [Apresoline 25 mg Tablet] 25 mg PO TID 05/17/19 Isosorbide Dinitrate [Isordil Titradose 20 mg Tablet] 20 mg PO Q8 05/17/19 Ranitidine HCl [Zantac] 150 mg PO DAILY 05/17/19 Sodium Bicarbonate [Sodium Bicarbonate 650 mg Tablet] 650 mg PO DAILY 05/17/19 Allergies/Adverse Reactions: crab Allergy (Severe, Verified 05/17/19 04:19) Anaphylaxis saxagliptin [Saxagliptin] Allergy (Intermediate, Verified 05/17/19 04:19) itching Review of Systems Constitutional: ABSENT: fever(s), headache(s), night sweats, weakness Eyes: ABSENT: visual disturbances Ears: ABSENT: hearing changes Nose, Mouth, and Throat: ABSENT: headache(s), mouth pain, sore throat Cardiovascular: PRESENT: chest pain. ABSENT: dyspnea on exertion, edema, orthropnea, palpitations Respiratory: ABSENT: dyspnea, hemoptysis, sputum Gastrointestinal: ABSENT: abdominal pain, bloating, coffee ground emesis, c onstipation, diarrhea, dysphagia, heartburn, melena, nausea, vomiting Genitourinary: ABSENT: difficulty urinating, dysuria, hematuria, nocturia Integumentary: ABSENT: diaphoresis, lesions, pruritus, rash Neurological: ABSENT: abnormal gait, abnormal movements, focal weakness, frequent falls, vertigo Psychiatric: PRESENT: anxiety Endocrine: ABSENT: heat intolerance, menstrual abnormalities Hematologic/Lymphatic: ABSENT: easy bleeding, easy bruising, lymphadenopathy Physical Exam Vital Signs: Temp Pulse Resp BP Pulse Ox 97.9 F 89 18 192/61 H 99 05/18/19 07:19 05/18/19 07:19 05/18/19 07:19 05/18/19 07:19 05/18/19 07:19 Intake & Output 05/17/19 05/18/19 05/19/19 06:59 06:59 06:59 Intake Total 240 Balance 240 Weight 71.5 kg General appearance: PRESENT: no acute distress Eye exam: PRESENT: EOMI, PERRLA. ABSENT: nystagmus Ear exam: PRESENT: normal external ear exam Mouth exam: PRESENT: moist, neck supple Neck exam: ABSENT: lymphadenopathy, meningismus, tenderness, thyromegaly, tracheal deviation Respiratory exam: PRESENT: chest wall tenderness, clear to auscultation marge. ABSENT: crackles Cardiovascular exam: PRESENT: +S1, +S2 GI/Abdominal exam: PRESENT: normal bowel sounds, soft. ABSENT: organomegaly, tenderness Extremities exam: ABSENT: pedal edema Neurological exam: PRESENT: alert, awake, oriented to person, oriented to place, oriented to time Psychiatric exam: PRESENT: anxious Skin exam: ABSENT: erythema, mottled, rash Results Laboratory Results: 05/17/19 04:41 05/17/19 04:41 05/17/19 05/17/19 05/17/19 04:41 04:41 07:42 Creatine Kinase 32 CK-MB (CK-2) 0.50 Troponin I 0.022 0.036 05/17/19 05/17/19 05/17/19 16:43 16:43 21:23 Creatine Kinase 33 27 L CK-MB (CK-2) 0.31 Troponin I 0.014 05/17/19 05/18/19 05/18/19 21:23 03:26 03:26 Creatine Kinase 30 CK-MB (CK-2) 0.26 0.31 Troponin I 0.017 0.013 Impressions: Chest X-Ray 05/17/19 04:44 IMPRESSION: No acute cardiopulmonary process copyright 2011 [employer] All Rights Reserved Assessment & Plan - Diagnosis (1) Chest pain Qualifiers: Chest pain type: unspecified Qualified Code(s): R07.9 - Chest pain, unspecified Is this a current diagnosis for this admission?: Yes Plan: Clinically it looks to me like it is noncardiac. It is reproducible. Further evaluation and management as per Dr. Alvarez. (2) ESRD (end stage renal disease) on dialysis Is this a current diagnosis for this admission?: Yes Plan: She currently undergoing dialysis. Vital signs are stable. Dialysis is being supervised to ensure safe and smooth procedure. Plan to remove 1-2 L as tole rated. Dialysis orders were reviewed with the treating dialysis nurse. (3) Anemia in chronic kidney disease (CKD) Plan: Presently stable. No indications for erythropoietin. (4) HTN (hypertension) Qualifiers: Hypertension type: essential hypertension Qualified Code(s): I10 - Essential (primary) hypertension Is this a current diagnosis for this admission?: Yes Plan: Uncontrolled. See the response to hemodialysis and fluid removal. Further titrations after that. (5) Type 2 diabetes mellitus Qualifiers: Diabetes mellitus ferry terminal supervisor insulin use: with nursing home use Diabetes mellitus complication status: with kidney complications Diabetes mellitus complication detail: with chronic kidney disease Chronic kidney disease stage: stage 4 (severe) Qualified Code(s): E11.22 - Type 2 diabetes mellitus with diabetic chronic kidney disease; N18.4 - Chronic kidney disease, stage 4 (severe); Z79.4 - assistant terminal manager (current) use of insulin Is this a current diagnosis for this admission?: Yes
[2019-05-18] MEDS: INSULIN LISPRO 100 UNIT/ML 3 ML VIAL SUBCUT SCH ×2 (13:57→13:58)
[2019-05-18] MEDS: DOCUSATE SODIUM 100 MG CAPSULE PO SCH (13:58)
[2019-05-18] MEDS: HYDRALAZINE HCL 25 MG TABLET PO SCH ×2 (13:58→14:09)
[2019-05-18] MEDS: CALCIUM ACETATE 667 MG CAPSULE PO SCH ×2 (13:59→14:08)
== END 2019-05-18 17:00 | disposition home or self-care (01) ==
LOC: ER 04:16 → EH 09:11 → 3N 14:21
PROVIDERS: ADMIT Internal Medicine Geriatric Medicine; ATTEND Internal Medicine Geriatric Medicine
DX: R07.89 Other chest pain (principal); R05 Cough; K21.9 Gastro-esophageal reflux disease without esophagitis; F41.9 Anxiety disorder, unspecified; D63.1 Anemia in chronic kidney disease; E11.22 Type 2 diabetes mellitus with diabetic chronic kidney disease; I12.0 Hypertensive chronic kidney disease with stage 5 chronic kidney disease or end stage renal disease; N18.6 End stage renal disease; E78.5 Hyperlipidemia, unspecified; R06.02 Shortness of breath; I34.0 Nonrheumatic mitral (valve) insufficiency; Z99.2 Dependence on renal dialysis; Z82.49 Family history of ischemic heart disease and other diseases of the circulatory system; Z79.4 Long term (current) use of insulin
CPT/HCPCS: 93005; 99285; 36415 ×2; 82553 ×2; 82962 ×2; 82550 ×2; 85025; 80053; 84484 ×2; 71045; 93010; J3490 ×12; J1644; J1815; G0257

== ENCOUNTER 2019-07-09 16:28 | Emergency (ER) | payer MEDICARE, MEDICAID ==
--- NOTE | 2019-07-09 16:43 | ER Document Report ---
ED Medical Screen (RME) - General Chief Complaint: Chest Pain Stated Complaint: CHEST PAIN Time Seen by Provider: 07/09/19 16:39 Primary Care Provider: BRENT ALVAREZ MD [Primary Care Provider] - Follow up as needed TRAVEL OUTSIDE OF THE [place] IN LAST 30 DAYS: No - HPI Notes: 07/09/19 16:42 Patient is a 64-year-old female with a history of end-stage renal disease (on dialysis every Thursday/Thursday/Thursday) with last session yesterday, hypertension, hyperlipidemia, type 2 diabetes who presents complaining of left- sided chest pain that is been constant since last night. Patient states that she does get some shortness of breath with exertion. The pain does not radiate. No fever or cough. She does still produce urine. I have treated and performed a rapid initial assessment of this patient. A comprehensive ED assessment and evaluation of the patient, analysis of test results and completion of medical decision making process will be conducted by additional ED providers. PHYSICAL EXAMINATION: GENERAL: Well-appearing, well-nourished and in no acute distress. A&Ox4. Answers questions appropriately. Heart: RRR Lungs: CTAB Extremities: No edema - Related Data Allergies/Adverse Reactions: crab Allergy (Severe, Verified 05/17/19 04:19) Anaphylaxis saxagliptin [Saxagliptin] Allergy (Intermediate, Verified 05/17/19 04:19) itching Past Medical History - Past Medical History Cardiac Medical History: Reports: Hx Hypercholesterolemia, Hx Hypertension Denies: Hx Coronary Artery Disease, Hx Heart Attack Pulmonary Medical History: Reports: Hx Sleep Apnea Denies: Hx Asthma, Hx Bronchitis, Hx COPD, Hx Pneumonia Neurological Medical History: Denies: Hx Cerebrovascular Accident, Hx Seizures Endocrine Medical History: Reports: Hx Diabetes Mellitus Type 2 Renal/ Medical History: Reports: Hx End Stage Renal Disease. Denies: Hx Peritoneal Dialysis GI Medical History: Reports: Hx Gastroesophageal Reflux Disease. Denies: Hx Hepatitis, Hx Hiatal Hernia, Hx Ulcer Musculoskeltal Medical History: Reports Hx Arthritis Psychiatric Medical History: Denies: Hx Depression Infectious Medical History: Denies: Hx Hepatitis Past Surgical History: Reports: Hx Abdominal Surgery - cholecystectomy, Hx Gynecologic Surgery - Ectopic . Denies: Hx Hysterectomy, Hx Mastectomy, Hx Open Heart Surgery, Hx Pacemaker - Immunizations Hx Diphtheria, Pertussis, Tetanus Vaccination: No Physical Exam - Vital signs Vitals: Temp Pulse Resp BP Pulse Ox 98.4 F 108 H 20 171/63 H 98 07/09/19 16:40 07/09/19 16:40 07/09/19 16:40 07/09/19 16:40 07/09/19 16:40 Course - Vital Signs Vital signs: Temp Pulse Resp BP Pulse Ox 98.4 F 108 H 20 171/63 H 98 07/09/19 16:40 07/09/19 16:40 07/09/19 16:40 07/09/19 16:40 07/09/19 16:40 Doctor's Discharge - Discharge Referrals: BRENT ALVAREZ MD [Primary Care Provider] - Follow up as needed
[2019-07-09 17:12] LABS: APPEARANCE,URINE CLEAR; BILIRUBIN,URINE NEGATIVE (NEGATIVE); COLOR,URINE STRAW; GLUCOSE, URINE >=500 mg/dL (NEGATIVE); KETONES,URINE NEGATIVE (NEGATIVE); PROTEIN,URINE 100 mg/dL (NEGATIVE); URINE SPECIFIC GRAVITY 1.009; UROBILINOGEN,URINE NEGATIVE mg/dL (<2.0)
--- NOTE | 2019-07-09 17:22 | RADIOLOGY REPORT (SQ) ---
EXAM DESCRIPTION: CHEST 2 VIEWS COMPLETED DATE/TIME: 07/09/2019 5:10 pm REASON FOR STUDY: CP COMPARISON: 05/17/2019 TECHNIQUE: Frontal and lateral radiographic views of the chest acquired. NUMBER OF VIEWS: Two view. LIMITATIONS: None. FINDINGS: LUNGS AND PLEURA: No pneumothorax. No consolidation or pleural effusion. MEDIASTINUM AND HILAR STRUCTURES: Stable. HEART AND VASCULAR STRUCTURES: Stable. BONES: No acute findings. HARDWARE: Right-sided dialysis catheter. OTHER: No other significant finding. IMPRESSION: NO ACUTE FINDINGS. TECHNICAL DOCUMENTATION: JOB ID: [id number] [place]-72 2010 [employer]- All Rights Reserved Reading location - IP/workstation name: [email or web address]
[2019-07-09 17:54] LABS: ABSOLUTE EOSINOPHILS # (AUTO) 0.3 10^3/uL (0.0-0.6); ABSOLUTE LYMPHOCYTES (AUTO) 1.8 10^3/uL (0.5-4.7); ABSOLUTE MONOCYTES (AUTO) 0.8 10^3/uL (0.1-1.4); ABSOLUTE NEUT (AUTO) 5.2 10^3/uL (1.7-8.2); BASOPHILS % (AUTO) 0.5 % (0-2); EOSINOPHILS % (AUTO) 3.9 % (0-6); HEMATOCRIT 38.3 % (36.0-47.0); HEMOGLOBIN 12.7 g/dL (12.0-15.5); MEAN CORPUSCULAR HGB CONC 33.2 g/dL (32.0-36.0); MEAN CORPUSCULAR VOLUME 87 fl (80-97); MONOCYTES % (AUTO) 9.6 % (3-13); PLATELET COUNT 229 10^3/uL (150-450); RED CELL DISTRIBUTION WIDTH 14.2 % (11.5-14.0); TOTAL CELLS COUNTED % (AUTO) 100 %; WHITE BLOOD COUNT 8.1 10^3/uL (4.0-10.5)
[2019-07-09 18:11] LABS: ALBUMIN 4.5 g/dL (3.5-5.0); ALKALINE PHOSPHATASE 181 U/L (38-126); ANION GAP 13 (5-19); ASPARTATE AMINO TRANSFERASE 62 U/L (14-36); BILIRUBIN,TOTAL 0.3 mg/dL (0.2-1.3); BLOOD UREA NITROGEN 59 mg/dL (7-20); CALCIUM 10.9 mg/dL (8.4-10.2); CARBON DIOXIDE 26 mmol/L (22-30); CHLORIDE 95 mmol/L (98-107); POTASSIUM 4.4 mmol/L (3.6-5.0); TOTAL PROTEIN 8.8 g/dL (6.3-8.2)
[2019-07-09] MEDS ORDERED: ASPIRIN 81 MG TABLET, CHEWABLE PO ONE (18:16)
[2019-07-09 18:18] LABS: GLUCOSE 426 mg/dL (75-110)
[2019-07-09 18:22] LABS: NT PRO BNP 301 pg/mL (<125)
[2019-07-09 18:23] LABS: TROPONIN I < 0.012 ng/mL
[2019-07-09] MEDS ORDERED: INSULIN REG, HUMAN 100 UNIT/ML 3 ML VIAL (PYX) IV ONE (18:32)
--- NOTE | 2019-07-09 18:41 | ER Document Report ---
ED General - General TRAVEL OUTSIDE OF THE [place] IN LAST 30 DAYS: No <YVONNE ATWOOD - Last Filed: 07/09/19 18:37> <ABBEY NAIR - Last Filed: 07/09/19 22:12> - General Chief Complaint: Chest Pain Stated Complaint: CHEST PAIN Time Seen by Provider: 07/09/19 16:39 Primary Care Provider: BRENT ALVAREZ MD [ACTIVE STAFF] - Follow up as needed Notes: 64-year-old female with history of hypertension, hyperlipidemia, diabetes, end- stage renal disease on dialysis Thursday (last dialysis yesterday) presents for left-sided chest pain without radiation that started yesterday. Patient had associated dyspnea intermittently. Patient states she also had nausea/vomiting yesterday but none today. Patient denies any history of AK or CAD. Patient is supposed to be taking insulin for her diabetes however states her blood sugars are usually in the 400-500s. Patient denies any fever, cough, abdominal pain, dizziness. (YVONNE ATWOOD) - Related Data Allergies/Adverse Reactions: crab Allergy (Severe, Verified 05/17/19 04:19) Anaphylaxis saxagliptin [Saxagliptin] Allergy (Intermediate, Verified 05/17/19 04:19) itching Past Medical History - Social History Smoking Status: Never Smoker Chew tobacco use (# tins/day): No Frequency of alcohol use: None Drug Abuse: None Family History: CAD, Malignancy - mother ovarian cancer, Other - Dad- AK @ 55 Patient has suicidal ideation: No Patient has homicidal ideation: No - Past Medical History Cardiac Medical History: Reports: Hx Hypercholesterolemia, Hx Hypertension Denies: Hx Coronary Artery Disease, Hx Heart Attack Pulmonary Medical History: Reports: Hx Sleep Apnea Denies: Hx Asthma, Hx Bronchitis, Hx COPD, Hx Pneumonia Neurological Medical History: Denies: Hx Cerebrovascular Accident, Hx Seizures Endocrine Medical History: Reports: Hx Diabetes Mellitus Type 2 Renal/ Medical History: Reports: Hx End Stage Renal Disease. Denies: Hx Peritoneal Dialysis GI Medical History: Reports: Hx Gastroesophageal Reflux Disease. Denies: Hx H epatitis, Hx Hiatal Hernia, Hx Ulcer Musculoskeletal Medical History: Reports Hx Arthritis Psychiatric Medical History: Denies: Hx Depression Infectious Medical History: Denies: Hx Hepatitis Past Surgical History: Reports: Hx Abdominal Surgery - cholecystectomy, Hx Gynecologic Surgery - Ectopic . Denies: Hx Hysterectomy, Hx Mastectomy, Hx Open Heart Surgery, Hx Pacemaker - Immunizations Hx Diphtheria, Pertussis, Tetanus Vaccination: No Hx Pneumococcal Vaccination: 11/28/12 <YVONNE ATWOOD - Last Filed: 07/09/19 18:37> Review of Systems <YVONNE ATWOOD - Last Filed: 07/09/19 18:37> - Review of Systems Notes: Constitutional: Negative for fever. HENT: Negative for sore throat. Eyes: Negative for visual changes. Cardiovascular: Positive for chest pain. Respiratory: Positive for shortness of breath. Gastrointestinal: Positive for nausea/vomiting. Negative for abdominal pain or diarrhea. Genitourinary: Negative for dysuria. Musculoskeletal: Negative for back pain. Skin: Negative for rash. Neurological: Negative for headaches, weakness or numbness. 10 point ROS negative except as marked above and in HPI. (YVONNE ATWOOD) Physical Exam <YVONNE ATWOOD - Last Filed: 07/09/19 18:37> - Vital signs Vitals: Temp Pulse Resp BP Pulse Ox 98.4 F 108 H 20 171/63 H 98 07/09/19 16:40 07/09/19 16:40 07/09/19 16:40 07/09/19 16:40 07/09/19 16:40 - Notes Notes: GENERAL: Well-appearing, well-nourished and in no acute distress. HEAD: Atraumatic, normocephalic. EYES: Extraocular movements intact, sclera anicteric, conjunctiva are normal. NECK: Normal range of motion, supple without lymphadenopathy or JVD. LUNGS: Breath sounds clear to auscultation bilaterally and equal. No wheezes rales or rhonchi. HEART: Regular rate and rhythm without murmurs, rubs or gallops. ABDOMEN: Soft, nontender. No guarding, no rebound. No masses appreciated. EXTREMITIES: Normal range of motion, no pitting or edema. No clubbing or cyanosis. NEUROLOGICAL: Cranial nerves II through XII grossly intact. Normal speech, normal gait. PSYCH: Normal mood, normal affect. SKIN: Warm, Dry, normal turgor, no rashes or lesions noted. (YVONNE ATWOOD) Course - Laboratory Result Diagrams: 07/09/19 17:40 07/09/19 17:40 <YVONNE ATWOOD - Last Filed: 07/09/19 18:37> - Laboratory Result Diagrams: 07/09/19 17:40 07/09/19 17:40 <ABBEY NAIR - Last Filed: 07/09/19 22:12> - Re-evaluation Re-evalutation: 07/09/19 64-year-old female with history of hypertension, hyperlipidemia, diabetes and end-stage renal disease presents for left-sided chest pain. Associated dyspnea and nausea/vomiting yesterday. Patient was recently admitted for chest pain in April and was discharged. Work-up initiated. EKG shows sinus tachycardia without ST elevation. Initial labs indicate end-stage renal disease, troponin is negative, hyperglycemia patient's blood glucose was 426. Insulin ordered. Aspirin was also ordered. Chest x-ray shows no acute abnor malities. (YVONNE ATWOOD) 07/09/19 22:07 Patient smiling, laughing, well appearing. She states she feels much better now. She denies nausea, chest pain. She states that she ate rice and drank mountain dew, and after this she got nauseated, vomited, took IM insulin, had chest pain, still felt bad and came in. This is consistent with her hyperglycemia on arrival and resolution of symptoms at this time. Initial troponin negative, repeat 0.012, repeat after this 0.014. No significant change. Patient has reproducible pain over her chest wall especially on the left side on exam. She states this is the same pain she was having, she states she does not want to stay and she wants to go home. She had a negative stress test in February of last year at [facility]. She states that she will eat better, take her insulin, and follow-up in the office if possible. I did call and speak with Dr. Alvarez, recommendations is for her to be seen in the office on atient states she will do this. Stable at time of discharge. (ABBEY NAIR) - Vital Signs Vital signs: Temp Pulse Resp BP Pulse Ox 98.4 F 108 H 35 H 156/62 H 100 07/09/19 16:40 07/09/19 16:40 07/09/19 18:44 07/09/19 18:23 07/09/19 18:44 - Laboratory Laboratory results interpreted by me: 07/09/19 07/09/19 07/09/19 16:51 17:40 17:40 RDW 14.2 H Sodium 133.7 L Chloride 95 L BUN 59 H Creatinine 5.04 H Est GFR ( Amer) 11 L Est GFR (MDRD) Non-Af 9 L Glucose 426 H* POC Glucose Calcium 10.9 H AST 62 H Alkaline Phosphatase 181 H NT-Pro-B Natriuret Pep Total Protein 8.8 H Urine Protein 100 H Urine Glucose (UA) >=500 H 07/09/19 07/09/19 17:40 20:19 RDW Sodium Chloride BUN Creatinine Est GFR ( Amer) Est GFR (MDRD) Non-Af Glucose POC Glucose 126 H Calcium AST Alkaline Phosphatase NT-Pro-B Natriuret Pep 301 H Total Protein Urine Protein Urine Glucose (UA) Discharge <YVONNE ATWOOD - Last Filed: 07/09/19 18:37> <ABBEY NAIR - Last Filed: 07/09/19 22:12> - Discharge Clinical Impression: Hyperglycemia, Chest wall pain Chest pain Qualifiers: Chest pain type: unspecified Qualified Code(s): R07.9 - Chest pain, unspecified Condition: Stable Disposition: HOME, SELF-CARE Additional Instructions: Improve your food choices to avoid very elevated blood sugar and repeated symptoms like today as we discussed. Continue taking your insulin. I spoke with Dr. Linda salas, please follow-up with him on Thursday in the office for additional evaluation and management. Return if you worsen including returned or severe pain, vomiting, passing out, difficulty breathing, fever, or any other concerning symptoms. Referrals: BRENT ALVAREZ MD [ACTIVE STAFF] - 07/12/19
--- NOTE | 2019-07-09 19:25 | EKG REPORT ---
SEVERITY:- OTHERWISE NORMAL ECG - SINUS TACHYCARDIA : Confirmed by: Chrissy Cooper MD 09-Jul-2019 19:25:15
[2019-07-10 00:37] VITALS: BP 161/79
== END 2019-07-09 22:00 | disposition home or self-care (01) ==
LOC: ER 16:28
DX: R07.9 Chest pain, unspecified (principal); R07.89 Other chest pain; R06.02 Shortness of breath; R11.2 Nausea with vomiting, unspecified; E11.22 Type 2 diabetes mellitus with diabetic chronic kidney disease; I12.0 Hypertensive chronic kidney disease with stage 5 chronic kidney disease or end stage renal disease; N18.6 End stage renal disease; E11.65 Type 2 diabetes mellitus with hyperglycemia; E78.00 Pure hypercholesterolemia, unspecified; Z90.49 Acquired absence of other specified parts of digestive tract; Z99.2 Dependence on renal dialysis
CPT/HCPCS: 93005; 99285; 36415; 82962; 85025; 80053; 81001; 84484; 83880; 71046; 93010; A9270 ×2; J1815

== ENCOUNTER 2019-08-09 07:28 | Day surgery (SDC) | payer MEDICARE, MEDICAID ==
[2019-08-02 09:48] LABS: ABSOLUTE EOSINOPHILS # (AUTO) 0.5 10^3/uL (0.0-0.6); ABSOLUTE LYMPHOCYTES (AUTO) 1.5 10^3/uL (0.5-4.7); ABSOLUTE MONOCYTES (AUTO) 0.6 10^3/uL (0.1-1.4); ABSOLUTE NEUT (AUTO) 4.1 10^3/uL (1.7-8.2); BASOPHILS % (AUTO) 0.6 % (0-2); EOSINOPHILS % (AUTO) 7.5 % (0-6); HEMATOCRIT 37.8 % (36.0-47.0); HEMOGLOBIN 12.7 g/dL (12.0-15.5); LYMPHOCYTES % (AUTO) 22.1 % (13-45); MEAN CORPUSCULAR HEMOGLOBIN 29.1 pg (27.0-33.4); MEAN CORPUSCULAR HGB CONC 33.6 g/dL (32.0-36.0); MEAN CORPUSCULAR VOLUME 86 fl (80-97); MONOCYTES % (AUTO) 8.7 % (3-13); PLATELET COUNT 225 10^3/uL (150-450); RED BLOOD COUNT 4.37 10^6/uL (3.72-5.28); RED CELL DISTRIBUTION WIDTH 14.4 % (11.5-14.0); SEGMENTED NEUTROPHILS % (AUTO) 61.1 % (42-78); TOTAL CELLS COUNTED % (AUTO) 100 %; WHITE BLOOD COUNT 6.7 10^3/uL (4.0-10.5)
--- NOTE | 2019-08-02 10:10 | EKG REPORT ---
SEVERITY:- ABNORMAL ECG - SINUS RHYTHM CONSIDER OLD ANTEROSEPTAL NM : Confirmed by: Ruddy Mcallister MD 02-Aug-2019 10:09:50
[2019-08-02 10:17] LABS: ANION GAP 11 (5-19); BLOOD UREA NITROGEN 41 mg/dL (7-20); CALCIUM 8.6 mg/dL (8.4-10.2); CARBON DIOXIDE 27 mmol/L (22-30); CHLORIDE 99 mmol/L (98-107); GLUCOSE 327 mg/dL (75-110); POTASSIUM 4.5 mmol/L (3.6-5.0)
--- NOTE | 2019-08-02 11:57 | RADIOLOGY REPORT (SQ) ---
EXAM DESCRIPTION: CHEST PA/LATERAL COMPLETED DATE/TIME: 08/02/2019 9:38 am REASON FOR STUDY: PRE-OP COMPARISON: 07/09/2019 EXAM PARAMETERS: NUMBER OF VIEWS: two views TECHNIQUE: Digital Frontal and Lateral radiographic views of the chest acquired. RADIATION DOSE: NA LIMITATIONS: none FINDINGS: LUNGS AND PLEURA: No opacities, masses or pneumothorax. No pleural effusion. MEDIASTINUM AND HILAR STRUCTURES: No masses or contour abnormalities. HEART AND VASCULAR STRUCTURES: Heart normal size. No evidence for failure. BONES: No acute findings. HARDWARE: Right-sided dialysis catheter, stable finding. OTHER: No other significant finding. IMPRESSION: 1. No significant interval changes since the prior study dated 07/09/2019. No acute fin dings. TECHNICAL DOCUMENTATION: JOB ID: [id number] 2010 [employer]- All Rights Reserved Reading location - IP/workstation name: [email or web address]
[~2019-08-09 07:28] MED LIST: NORMAL SALINE 1000 ML (RENAL PATIENTS) IV PRN
[2019-08-09] MEDS ORDERED: CEFAZOLIN 1 GM/D5W RTU 1 GM/50 ML RTUPB IV ONE (07:59)
[2019-08-09] MEDS ORDERED: FENTANYL CITRATE INJ/PF 100 MCG/2 ML AMPUL ONE (08:54)
[2019-08-09] MEDS ORDERED: DEXMEDETOMIDINE INJ 80 MCG/20 ML VIAL IV ONE (08:54)
[2019-08-09] MEDS ORDERED: MIDAZOLAM 2 MG/2 ML INJ ONE ×2 (08:54→08:55)
[2019-08-09] MEDS ORDERED: PROPOFOL INJ 200 MG/20 ML VIAL IV ONE (08:55)
[2019-08-09] MEDS ORDERED: FAMOTIDINE INJ/PF 20 MG/2 ML SDV IV ONE (08:56)
[2019-08-09] MEDS ORDERED: METOCLOPRAMIDE HCL INJ/PF 10 MG/2 ML SDV ONE (08:56)
[2019-08-09] MEDS ORDERED: ROPIVACAINE HCL 0.5% INJ/PF (5 MG/1 ML) 30 ML SDV ONE (08:59)
[2019-08-09] MEDS ORDERED: LIDOCAINE 2% INJ (20 MG/ML) 20 ML MDV ONE (08:59)
[2019-08-09] MEDS ORDERED: LIDOCAINE 2%/EPINEPHRINE INJ 20 ML VIAL ONE (08:59)
[2019-08-09] MEDS ORDERED: BUPIVACAINE HCL 0.25 % INJ/PF (2.5 MG/1 ML) 30 ML VIAL ONE (09:01)
[2019-08-09] MEDS ORDERED: LIDOCAINE 1% INJ-PF (10 MG/ML) 30 ML SDV ONE (09:01)
[2019-08-09] MEDS ORDERED: LIDOCAINE 0.5% INJ-PF (5 MG/ML) 50 ML SDV ONE (09:02)
[2019-08-09] MEDS ORDERED: HEPARIN SOD (PORCINE) 1,000 UNIT/ML 10 ML VIAL ONE (09:02)
[2019-08-09] MEDS ORDERED: BACITRACIN INJ 50,000 UNIT VIAL ONE (09:03)
[2019-08-09] MEDS ORDERED: ONDANSETRON HCL INJ/PF 4 MG/2 ML SDV IV PRN (10:26)
[2019-08-09] MEDS ORDERED: DIPHENHYDRAMINE HCL 50 MG/ML VIAL IV PRN (10:26)
[2019-08-09] MEDS ORDERED: NITROGLYCERIN/D5W 50 MG/250 ML RTUINJ IV ONE (10:26)
[2019-08-09] MEDS ORDERED: FENTANYL CITRATE INJ/PF 100 MCG/2 ML AMPUL IV PRN ×3 (10:26)
[2019-08-09] MEDS ORDERED: PROMETHAZINE HCL INJ 25 MG/1 ML VIAL IV PRN ×2 (10:26)
[2019-08-09] MEDS ORDERED: MORPHINE SULFATE 10 MG/ML INJ IV PRN (10:26)
[2019-08-09] MEDS ORDERED: OXYCODONE-ACETAMINOPHEN 5-325 MG TABLET PO PRN ×2 (10:26)
[2019-08-09] MEDS ORDERED: MEPERIDINE HCL/PF INJ 25 MG/1 ML DISP.SYRIN IV PRN (10:26)
--- NOTE | 2019-08-09 11:17 | Discharge Summary ---
Discharge Summary (SDC) - Discharge Final Diagnosis: #1 end-stage renal disease on hemodialysis. 2. Diabetes mellitus type 2. 3. Hypertension. Date of Surgery: 08/09/19 Discharge Date: 08/09/19 Condition: Good Treatment or Instructions: Discharge home [after recovery per ASU criteria]. Diet , [renal],as tolerated, when fully awake advance as tolerated. Activities within moderation encouraged. Follow up in my office by appointment in about [1 week]. Call for appointment. Leave wounds [covered], [keep clean and dry, until office visit in 1 week]. Hold of on school/work [until evaluation in office]. Meds per med rec. Percocet. May shower [in 48 hrs], [try to keep operated area as dry as possible]. Prescriptions: Oxycodone HCl/Acetaminophen [Percocet 5-325 mg Tablet] 1 tab PO ASDIR PRN #15 tab PRN Reason: Referrals: BRENT ALVAREZ MD [Primary Care Provider] - Discharge Diet: Other (Comments) - Renal, diabetic. Discharge Activity: Activity As Tolerated Report the Following to Your Physician Immediately: Shortness of Breath, Unusual Bleeding
--- NOTE | 2019-08-09 11:41 | Operative Report ---
Operative Report DATE OF SURGERY: 08/09/19 PREOPERATIVE DIAGNOSIS: #1 end-stage renal disease on hemodialysis. 2. Diabet es mellitus type 2. 3. Hypertension. POSTOPERATIVE DIAGNOSIS: #1 end-stage renal disease on hemodialysis. 2. Diabetes mellitus type 2. 3. Hypertension. OPERATION: Insertion of transposed radiocephalic fistula left upper extremity. SURGEON: HELGA CARMICHAEL FIELD CONSULTANT: None. ANESTHESIA: LMAC TISSUE REMOVED OR ALTERED: Not applicable. COMPLICATIONS: None. ESTIMATED BLOOD LOSS: 5 mL. INTRAOPERATIVE FINDINGS: All smaller than expected vessels especially in the radial, good apparent flow of fluid. The veins were unusually thin-walled and fragile. The used vein accommodated a 3 mm coronary dilator, just. Technically very satisfactory anastomosis, satisfactory Doppler signal, difficult to auscultate externally post procedure. Moderately optimistic for satisfactory outcome, may need to do at the brachiocephalic level. PROCEDURE: Operative Report PROCEDURE: After reviewing the procedure with the patient, [she] was taken to [facility] operating room. The patient was sedated and the left upper extremity] prepared with chlorhexidine and draped out with sterile linen. After the "" universal timeout", in which it was verified that the patient [received IV antibiotics] the procedure commenced. The sterilely sheathed ultrasound probe was used to evaluate the left venous and arterial systems, pertinent to the previously done vein mapping. Local anesthesia was infiltrated and a longitudinal incision made over the distal forearm forearm, over the most distal reasonable looking cephalic vein. Dissection proceeded through the subcutaneous tissues down to the cephalic vein. This was dissected out proximally and distally for about 2 cm. . Rubber loops were placed on either end. The cephalic vein was now dissected out for a distance of about 6 cm. The patient was given 2500 units of heparin intravenously. The cephalic vein was transected and irrigated with heparinized solution. The distal branches were clipped Coronary dilators were accepted [up to 3.5 mm]. The radial artery was dissected out through a separate medial incision over the pulsation. The artery was controlled proximally and distally with rubber loops. The vein was transposed into the arterial incision using a tendon passer. An arteriotomy approximately 1.2 cm in length was made, the artery was irrigated proximally and distally with heparinized solution. The transected vein was now spatulated [using a convenient area, the so called fishmouth technique, it was then anastomosed end to end to side into the brachial artery. This was done using a continuous suture of 6-0 Prolene. Controls of the fistula were now released and it was analyzed using a Doppler probe. Hemostasis was secured once optimal function was assured, the wound was irrigated with antibiotic containing solution and closed. Closure was done using interrupted 3-0 PDS for the subcutaneous tissues. The skin was closed, in either wound, using a continuous subcutaneous suture of 4-0 Monocryl which was reinforced with Steri-Strips over benzoin. I then left the operative field and returned with a stethoscope covered with a sterile Tegaderm dressing. This allo wed external auscultation of the fistula. Auscultation was questionable. In light of the satisfactory anastomosis on the tenuous nature of the vessels used, procedure was concluded by applying a dressing over the surgical site. DICTATING PHYSICIAN: HELGA MICHEL M.D.
[2019-08-09 13:52] VITALS: BP 119/47
== END 2019-08-09 13:35 | disposition home or self-care (01) ==
LOC: OROUT 07:28
PROVIDERS: ATTEND Surgery
DX: E11.22 Type 2 diabetes mellitus with diabetic chronic kidney disease (principal); I12.0 Hypertensive chronic kidney disease with stage 5 chronic kidney disease or end stage renal disease; N18.6 End stage renal disease; Z99.2 Dependence on renal dialysis; E78.00 Pure hypercholesterolemia, unspecified; R41.3 Other amnesia; Z90.49 Acquired absence of other specified parts of digestive tract; Z79.899 Other long term (current) drug therapy; Z79.82 Long term (current) use of aspirin
CPT/HCPCS: 36821; 93005; 36415 ×2; 82962; 84132; 85025; 80048; 71046; 93010; 01844; J2795; J2250; J3490 ×6; J0690; J1644; J2765; J2704; S0028; 1844; J3010

== ENCOUNTER 2019-08-19 11:21 | Emergency (ER) | payer MEDICARE, MEDICAID ==
[2019-08-19] MEDS ORDERED: OXYCODONE-ACETAMINOPHEN 5-325 MG TABLET PO ONE (11:54)
--- NOTE | 2019-08-19 11:56 | ER Document Report ---
ED Medical Screen (RME) - General Stated Complaint: RIGHT SIDE PAIN Time Seen by Provider: 08/19/19 11:49 Primary Care Provider: BRENT ALVAREZ MD [Primary Care Provider] - Follow up as needed Notes: HPI: 64-year-old female who is a dialysis patient Thursday presenting to the emergency department for evaluation of right flank pain that began while she was at dialysis. States the people at dialysis thought she might have a kidney stone. Patient states the pain is staying in the back does not radiate into the front. Denies nausea vomiting. States she still had 20 minutes left to finish her dialysis today. I have greeted and performed a rapid initial assessment of this patient. A comprehensive ED assessment and evaluation of the patient, analysis of test results and completion of the medical decision making process will be conducted by additional ED providers PHYSICAL EXAMINATION: GENERAL: Well-appearing, well-nourished and in no acute distress. HEAD: Atraumatic, normocephalic. EYES: sclera anicteric, conjunctiva are normal. ENT: Moist mucous membranes. NECK: Normal range of motion LUNGS: Normal work of breathing, clear to auscultation HEART: 2+ radial pulses bilaterally, regular rate and rhythm ABD: limited by positioning for exam in triage. No abdominal pain on palpation of the right abdomen but does have mild tenderness on palpation of the right lateral back EXTREMITIES: no pitting or edema. No cyanosis. NEUROLOGICAL: No focal neurological deficits. Moves all extremities spontaneously and on command. PSYCH: Normal mood, normal affect. SKIN: Warm, Dry, normal turgor, no rashes or lesions noted. TRAVEL OUTSIDE OF THE [place] IN LAST 30 DAYS: No - Related Data Allergies/Adverse Reactions: crab Allergy (Severe, Verified 05/17/19 04:19) Anaphylaxis saxagliptin [Saxagliptin] Allergy (Intermediate, Verified 05/17/19 04:19) itching Past Medical History - Past Medical History Cardiac Medical History: Reports: Hx Hypercholesterolemia, Hx Hypertension Denies: Hx Coronary Artery Disease, Hx Heart Attack Pulmonary Medical History: Reports: Hx Sleep Apnea Denies: Hx Asthma, Hx Bronchitis, Hx COPD, Hx Pneumonia Neurological Medical History: Denies: Hx Cerebrovascular Accident, Hx Seizures Endocrine Medical History: Reports: Hx Diabetes Mellitus Type 2 Renal/ Medical History: Reports: Hx End Stage Renal Disease. Denies: Hx Peritoneal Dialysis GI Medical History: Reports: Hx Gastroesophageal Reflux Disease. Denies: Hx Hepatitis, Hx Hiatal Hernia, Hx Ulcer Musculoskeltal Medical History: Reports Hx Arthritis Psychiatric Medical History: Denies: Hx Depression Infectious Medical History: Denies: Hx Hepatitis Past Surgical History: Reports: Hx Abdominal Surgery - cholecystectomy, Hx Gynecologic Surgery - Ectopic . Denies: Hx Hysterectomy, Hx Mastectomy, Hx Open Heart Surgery, Hx Pacemaker - Immunizations Hx Diphtheria, Pertussis, Tetanus Vaccination: No Physical Exam - Vital signs Vitals: Temp Pulse Resp BP Pulse Ox 97.5 F 73 16 159/62 H 98 08/19/19 11:36 08/19/19 11:36 08/19/19 11:36 08/19/19 11:36 08/19/19 11:36 Course - Vital Signs Vital signs: Temp Pulse Resp BP Pulse Ox 97.5 F 73 16 159/62 H 98 08/19/19 11:36 08/19/19 11:36 08/19/19 11:36 08/19/19 11:36 08/19/19 11:36 Doctor's Discharge - Discharge Referrals: BRENT ALVAREZ MD [Primary Care Provider] - Follow up as needed
[2019-08-19 12:39] LABS: APPEARANCE,URINE CLEAR; BILIRUBIN,URINE NEGATIVE (NEGATIVE); COLOR,URINE STRAW; GLUCOSE, URINE 150 mg/dL (NEGATIVE); KETONES,URINE NEGATIVE (NEGATIVE); LEUKOCYTE ESTERASE,URINE TRACE (NEGATIVE); NITRITE,URINE NEGATIVE (NEGATIVE); PROTEIN,URINE 100 mg/dL (NEGATIVE); URINE SPECIFIC GRAVITY 1.003; UROBILINOGEN,URINE NEGATIVE mg/dL (<2.0)
--- NOTE | 2019-08-19 13:00 | RADIOLOGY REPORT (SQ) ---
EXAM DESCRIPTION: CT ABD/PELVIS NO ORAL OR IV COMPLETED DATE/TIME: 08/19/2019 12:40 pm REASON FOR STUDY: left flank pain COMPARISON: 03/23/2014 TECHNIQUE: CT scan of the abdomen and pelvis performed without intravenous or oral contrast. Images reviewed with lung, soft tissue, and bone windows. Reconstructed coronal and sagittal MPR images revi ewed. All images stored on PACS. All CT scanners at this facility use dose modulation, iterative reconstruction, and/or weight based d osing when appropriate to reduce radiation dose to as low as reasonably achievable (ALARA). [facility]: Dose Right [facility]: CareDose [facility]: Dose Right [facility]: Teradose 4D [facility]: Smart [place] [facility] RADIATION DOSE: CT Rad equipment meets quality standard of care and radiation dose reduction techniq ues were employed. CTDIvol: 13.6 mGy. DLP: 669 mGy-cm.mGy. LIMITATIONS: None. FINDINGS: LOWER CHEST: No significant findings. No nodules or infiltrates. NON-CONTRASTED LIVER, SPLEEN, ADRENALS: Evaluation limited by lack of IV contrast. No identified sign ificant masses. PANCREAS: No masses. No peripancreatic inflammatory changes. GALLBLADDER: Surgically absent. RIGHT KIDNEY AND URETER: No suspicious masses. Assessment limited by lack of IV contrast. No signif icant calcifications. No hydronephrosis or hydroureter. LEFT KIDNEY AND URETER: No suspicious masses. Assessment limited by lack of IV contrast. No signifi cant calcifications. No hydronephrosis or hydroureter. AORTA AND RETROPERITONEUM: No aneurysm. No retroperitoneal masses or adenopathy. BOWEL AND PERITONEAL CAVITY: No obvious masses or inflammatory changes. No free fluid. APPENDIX: Normal. PELVIS, BLADDER, AND ABDOMINAL WALL:No abnormal masses. No free fluid. Bladder normal. BONES: No significant findings. OTHER: No other significant finding. IMPRESSION: NO SIGNIFICANT OR ACUTE PROCESS IN THE ABDOMEN OR PELVIS. COMMENT: Quality ID # [id number]: Final reports with documentation of one or more dose reduction techniques (e.g., Automated exposure control, adjustment of the mA and/or kV according to patient size, use of iterative reconstruction technique) TECHNICAL DOCUMENTATION: JOB ID: [id number] 2010 [employer]- All Rights Reserved Reading location - IP/workstation name: [email or web address]
--- NOTE | 2019-08-19 15:48 | ER Document Report ---
ED GI/ - General Chief Complaint: Abdominal Pain Stated Complaint: RIGHT SIDE PAIN Time Seen by Provider: 08/19/19 11:49 Primary Care Provider: BRENT ALVAREZ MD [Primary Care Provider] - Follow up in 3-5 days Information source: Patient Notes: 64-year-old female presented to ED from dialysis for complaint of flank pain on the left while on dialysis. She states the pain got so bad she had to stop her dialysis about 20 minutes early because she could not stand the pain. She is alert oriented respirations regular nonlabored speaking in full sentences. She states it never did radiate around to the front. She states she has had some nausea but no vomiting but the pain in and nausea are both gone at this time. She did have a CAT scan before I saw her which does not show any kidney stones or any other acute abnormalities to the abdomen pelvis. The techs in the front were not able to get her blood work so we have put an IV and and the blood work going down to the lab at this time. Her urine did not show any blood or any infection. Patient complained of right lower quadrant pain when I saw her. TRAVEL OUTSIDE OF THE [place] IN LAST 30 DAYS: No - HPI Patient complains to provider of: Abdominal pain, Flank pain Onset: This morning - Left Timing/Duration: Sudden, Gone Quality of pain: No pain Severity at maximum: Moderate Severity in ED: None Context: Bad food Location: Left flank Vaginal bleeding (Compared to normal period): None Associated symptoms: Nausea. denies: Vomiting Exacerbated by: Other - On dialysis Relieved by: Denies Similar symptoms previously: Yes Recently seen / treated by doctor: Yes - Related Data Allergies/Adverse Reactions: crab Allergy (Severe, Verified 05/17/19 04:19) Anaphylaxis saxagliptin [Saxagliptin] Allergy (Intermediate, Verified 05/17/19 04:19) itching Home Medications: pain medication Past Medical History - General Information source: Patient - Social History Smoking Status: Unknown if Ever Smoked Frequency of alcohol use: None Drug Abuse: None Lives with: Family Family History: CAD, Malignancy - mother ovarian cancer, Other - Dad- [place] @ 55 Patient has suicidal ideation: No Patient has homicidal ideation: No - Past Medical History Cardiac Medical History: Reports: Hx Hypercholesterolemia, Hx Hypertension Pulmonary Medical History: Reports: Hx Sleep Apnea EENT Medical History: Reports: None Neurological Medical History: Reports: None Endocrine Medical History: Reports: Hx Diabetes Mellitus Type 2 Renal/ Medical History: Reports: Hx End Stage Renal Disease, Hx Hemodialysis Malignancy Medical History: Reports: None GI Medical History: Reports: Hx Gastroesophageal Reflux Disease Musculoskeletal Medical History: Reports Hx Arthritis Skin Medical History: Reports None Psychiatric Medical History: Reports: None Traumatic Medical History: Reports: None Infectious Medical History: Reports: None Past Surgical History: Reports: Hx Abdominal Surgery - cholecystectomy, Hx Gynecologic Surgery - Ectopic - Immunizations Hx Diphtheria, Pertussis, Tetanus Vaccination: No Hx Pneumococcal Vaccination: 11/28/12 Review of Systems - Review of Systems Constitutional: No symptoms reported EENT: No symptoms reported Cardiovascular: No symptoms reported Respiratory: No symptoms reported Gastrointestinal: Nausea. denies: Abdominal pain, Vomiting Genitourinary: Flank pain Female Genitourinary: No symptoms reported Musculoskeletal: No symptoms reported Skin: No symptoms reported Hematologic/Lymphatic: No symptoms reported Neurological/Psychological: No symptoms reported -: Yes All other systems reviewed and negative Physical Exam - Vital signs Vitals: Temp Pulse Resp BP Pulse Ox 97.5 F 73 16 159/62 H 98 08/19/19 11:36 08/19/19 11:36 08/19/19 11:36 08/19/19 11:36 08/19/19 11:36 Interpretation: Normal - General General appearance: Appears well, Alert - HEENT Head: Normocephalic, Atraumatic Eyes: Normal Pupils: PERRL - Respiratory Respiratory status: No respiratory distress Chest status: Nontender Breath sounds: Normal Chest palpation: Normal Notes: Dialysis catheter in the right chest, fistula in the left arm - Cardiovascular Rhythm: Regular Heart sounds: Normal auscultation Murmur: No - Abdominal Inspection: Normal Distension: No distension Bowel sounds: Normal Tenderness: Tender - Mild right lower quadrant Organomegaly: No organomegaly - Back Back: Normal, Nontender. No: CVA tenderness - She states she had left flank pain while on dialysis - Extremities General upper extremity: Normal inspection, Nontender, Normal color, Normal ROM, Normal temperature General lower extremity: Normal inspection, Nontender, Normal color, Normal ROM, Normal temperature, Normal weight bearing. No: Samantha's sign - Neurological Neuro grossly intact: Yes Cognition: Normal Orientation: AAOx4 Matt Coma Scale Eye Opening: Spontaneous Matt Coma Scale Verbal: Oriented Matt Coma Scale Motor: Obeys Commands [place] Coma Scale Total: 15 Speech: Normal Motor strength normal: LUE, RUE, LLE, RLE Sensory: Normal - Psychological Associated symptoms: Normal affect, Normal mood - Skin Skin Temperature: Warm Skin Moisture: Dry Skin Color: Normal Course - Re-evaluation Re-evalutation: 08/20/19 01:[address] with Dr. alvarez he stated that patient could go home. She is not in any acute distress at this time there is no acute processes going on in the CT or the labs except for the fact that she is renal patient and has abnormal chemistries due to the renal failure. Potassium was within normal range she did have her dialysis today she just got off the dialysis [address] minutes early[address] Copy of [address] and lab results given to patient and patient was instructed to please follow-up with her primary doctor on Thursday. Patient verbalized agr eement with treatment plan and she was discharged home earlier today. - Vital Signs Vital signs: Temp Pulse Resp BP Pulse Ox 98.0 F 68 15 185/75 H 98 08/19/19 19:00 08/19/19 19:00 08/19/19 19:00 08/19/19 19:00 08/19/19 19:00 - Laboratory Result Diagrams: 08/19/19 15:43 08/19/19 18:12 Laboratory results interpreted by me: 08/19/19 08/19/19 08/19/19 12:21 15:43 18:12 Hgb 11.5 L Hct 34.2 L RDW 14.3 H Sodium 135.9 L Chloride 96 L Carbon Dioxide 31 H Creatinine 2.61 H Est GFR ( Amer) 22 L Est GFR (MDRD) Non-Af 19 L Glucose 175 H Alkaline Phosphatase 133 H Urine Protein 100 H Urine Glucose (UA) 150 H Ur Leukocyte Esterase TRACE H - Diagnostic Test Radiology reviewed: Image reviewed, Reports reviewed Discharge - Discharge Clinical Impression: Left flank pain, Right sided abdominal pain Condition: Stable Disposition: HOME, SELF-CARE Additional Instructions: ABDOMINAL PAIN: There are many causes of abdominal pain. Pain can mean a serious problem requiring surgery (such as appendicitis). It can also be an innocent problem that goes away on its own (such as a viral infection). Often, time must pass to determine the cause of pain. The physician does not feel that hospitalization is necessary, at present. Things may change within the next 24 hours. Call the doctor or come back for re- examination if any problems occur, such as: (1) Pain that becomes more severe, steady, or becomes concentrated in one specific area. Also, pain that is more severe with movement or coughing. (2) Vomiting that persists or becomes more frequent. (3) Blood in the vomitus, urine, or bowel movements. Blood in the stool may have a tarry or black appearance. (4) Shaking chills or fever greater than 100 degrees F. (5) The abdomen becomes more distended or swollen. (6) Bowel movements cease. (7) Failure to improve as expected. I have discussed your labs and your CT with you and given you reports of your labs and CT. The chemistry is abnormal due to your kidney failure and dialysis. You do not have any symptoms of an infection you do not have any blood in your urine. Your x-ray did not show any kidney stone or any other acute processes i n your stomach or abdomen. Please take these results to your primary care doctor and follow-up in the next 3 to 5 days. If you have any increase in symptoms you can always return to the ED. Flank Pain We weren't able to prove an exact cause for your flank pain. Pain in the flank can be caused by a muscle strain or spasm. Sometimes a kidney stone causes pain, but can't be found on our tests. Infection in the kidney should be evident on a urine test. Early shingles can occasionally cause flank pain, without the rash that proves the diagnosis. On rare occasions, disease of the pancreas, aorta, spleen, or colon can create pain in the flank. At this time, there's no evidence of a dangerous condition, and it seems safe for you to be at home. If the pain goes away and does not come back, no further testing will be needed. If pain persists, or becomes more severe, we may need to repeat some tests or order additional new testing. Blood in the urine, urgency to urinate frequently, and pain that radiates to the groin can indicate a kidney stone. Fever may mean that the pain is due to infection, either of the kidney or the colon (diverticulitis). If your pain is early shingles, you should develop an eruption of blisters in the painful area within a few days. Call the doctor or return if you have pain that is spreading or becoming more severe, pain that does not resolve with time, fever, or any other new symptoms. NORMAL EXAM AND WORKUP: At this time, your examination and workup show no significant abnormality. No significant abnormal physical findings are noted. All laboratory, EKG, and imaging (x-ray, CT scans, ultrasound) studies that were ordered show no significant abnormality. Although your examination and all studies that were ordered showed no significant abnormal finding, there are no examinations and no studies that are 100% accurate. There is always the possibility that some abnormality could exist and not be detected with physical examination or within the limits and capabilities of laboratory and other studies. You should return or follow up as you were instructed on your visit today for further evaluation if your symptoms do not resolve. FOLLOW-UP CARE: If you have been referred to a physician for follow-up care, call the physicians office for an appointment as you were instructed or within the next two days. If you experience worsening or a significant change in your symptoms, notify the physician immediately or return to the Emergency Department at any time for re-evaluation. Forms: Elevated Blood Pressure Referrals: BRENT ALVAREZ MD [Primary Care Provider] - Follow up in 3-5 days
[2019-08-19 16:08] LABS: ABSOLUTE BASOPHILS # (AUTO) 0.1 10^3/uL (0.0-0.2); ABSOLUTE EOSINOPHILS # (AUTO) 0.5 10^3/uL (0.0-0.6); ABSOLUTE LYMPHOCYTES (AUTO) 1.7 10^3/uL (0.5-4.7); ABSOLUTE MONOCYTES (AUTO) 0.6 10^3/uL (0.1-1.4); ABSOLUTE NEUT (AUTO) 6.8 10^3/uL (1.7-8.2); BASOPHILS % (AUTO) 0.6 % (0-2); EOSINOPHILS % (AUTO) 5.5 % (0-6); HEMATOCRIT 34.2 % (36.0-47.0); HEMOGLOBIN 11.5 g/dL (12.0-15.5); LYMPHOCYTES % (AUTO) 17.7 % (13-45); MEAN CORPUSCULAR HEMOGLOBIN 28.6 pg (27.0-33.4); MEAN CORPUSCULAR HGB CONC 33.7 g/dL (32.0-36.0); MEAN CORPUSCULAR VOLUME 85 fl (80-97); MONOCYTES % (AUTO) 6.5 % (3-13); PLATELET COUNT 244 10^3/uL (150-450); RED BLOOD COUNT 4.03 10^6/uL (3.72-5.28); RED CELL DISTRIBUTION WIDTH 14.3 % (11.5-14.0); SEGMENTED NEUTROPHILS % (AUTO) 69.7 % (42-78); TOTAL CELLS COUNTED % (AUTO) 100 %; WHITE BLOOD COUNT 9.7 10^3/uL (4.0-10.5)
[2019-08-19 18:42] LABS: ALBUMIN 3.8 g/dL (3.5-5.0); ALKALINE PHOSPHATASE 133 U/L (38-126); ANION GAP 9 (5-19); ASPARTATE AMINO TRANSFERASE 25 U/L (14-36); BILIRUBIN,DIRECT 0.3 mg/dL (0.0-0.4); BILIRUBIN,TOTAL 0.4 mg/dL (0.2-1.3); BLOOD UREA NITROGEN 18 mg/dL (7-20); CALCIUM 8.5 mg/dL (8.4-10.2); CARBON DIOXIDE 31 mmol/L (22-30); CHLORIDE 96 mmol/L (98-107); GLUCOSE 175 mg/dL (75-110); POTASSIUM 4.4 mmol/L (3.6-5.0)
[2019-08-19 18:57] VITALS: BP 185/75
== END 2019-08-19 18:58 | disposition home or self-care (01) ==
LOC: ER 11:21
DX: R10.31 Right lower quadrant pain (principal); R11.0 Nausea; E78.00 Pure hypercholesterolemia, unspecified; E11.22 Type 2 diabetes mellitus with diabetic chronic kidney disease; I12.0 Hypertensive chronic kidney disease with stage 5 chronic kidney disease or end stage renal disease; N18.6 End stage renal disease; Z99.2 Dependence on renal dialysis; Z91.013 Allergy to seafood; Z90.49 Acquired absence of other specified parts of digestive tract
CPT/HCPCS: 99284; 36415; 85025; 80053; 81001; 74176; A9270

== ENCOUNTER 2019-11-19 13:30 | Emergency (ER) | payer MEDICARE, MEDICAID ==
[2019-11-19 13:36] VITALS: BP 170/61
--- NOTE | 2019-11-19 13:45 | ER Document Report ---
ED Medical Screen (RME) - General Chief Complaint: Chest Pain > 30 Stated Complaint: LEFT SIDE FLANK PAIN Time Seen by Provider: 11/19/19 13:43 Primary Care Provider: BRENT ALVAREZ MD [Primary Care Provider] - Follow up as needed Mode of Arrival: Ambulatory Information source: Patient Notes: 64-year-old female presented to ED for pain under the left breast. She states she just had a fistula for dialysis placed 3 weeks ago. She states now she is having left chest pain. She is alert oriented respirations regular and unlabored speaking in full sentences. She is speaking in full sentences she is not short of breath at all. She does have a good bruit to the fistula. I have greeted and performed a rapid initial assessment of this patient. A comprehensive ED assessment and evaluation of the patient, analysis of test results and completion of medical decision making process will be conducted by an additional ED providers. TRAVEL OUTSIDE OF THE [place] IN LAST 30 DAYS: No - Related Data Allergies/Adverse Reactions: crab Allergy (Severe, Verified 11/19/19 13:39) Anaphylaxis saxagliptin [Saxagliptin] Allergy (Intermediate, Verified 11/19/19 13:39) itching Past Medical History - Past Medical History Cardiac Medical History: Reports: Hx Hypercholesterolemia, Hx Hypertension Denies: Hx Coronary Artery Disease, Hx Heart Attack Pulmonary Medical History: Reports: Hx Sleep Apnea Denies: Hx Asthma, Hx Bronchitis, Hx COPD, Hx Pneumonia Neurological Medical History: Denies: Hx Cerebrovascular Accident, Hx Seizures Endocrine Medical History: Reports: Hx Diabetes Mellitus Type 2 Renal/ Medical History: Reports: Hx End Stage Renal Disease, Hx Hemodialysis. Denies: Hx Peritoneal Dialysis GI Medical History: Reports: Hx Gastroesophageal Reflux Disease. Denies: Hx Hepatitis, Hx Hiatal Hernia, Hx Ulcer Musculoskeltal Medical History: Reports Hx Arthritis Psychiatric Medical History: Denies: Hx Depression Infectious Medical History: Denies: Hx Hepatitis Past Surgical History: Reports: Hx Abdominal Surgery - cholecystectomy, Hx Gynecologic Surgery - Ectopic . Denies: Hx Hysterectomy, Hx Mastectomy, Hx Open Heart Surgery, Hx Pacemaker - Immunizations Hx Diphtheria, Pertussis, Tetanus Vaccination: No Physical Exam - Vital signs Vitals: Temp Pulse Resp BP Pulse Ox 98.4 F 99 18 170/61 H 93 11/19/19 13:34 11/19/19 13:34 11/19/19 13:34 11/19/19 13:34 11/19/19 13:34 Course - Vital Signs Vital signs: Temp Pulse Resp BP Pulse Ox 98.4 F 99 18 170/61 H 93 11/19/19 13:34 11/19/19 13:34 11/19/19 13:34 11/19/19 13:34 11/19/19 13:34 Doctor's Discharge - Discharge Referrals: BRENT ALVAREZ MD [Primary Care Provider] - Follow up as needed
--- NOTE | 2019-11-19 14:47 | RADIOLOGY REPORT (SQ) ---
EXAM DESCRIPTION: CHEST 2 VIEWS IMAGES COMPLETED DATE/TIME: 11/19/2019 2:11 pm REASON FOR STUDY: Left chest pain under her breast recent fistula COMPARISON: Chest films 07/09/2019, 08/02/2019 CT chest 02/02/2019 EXAM PARAMETERS: NUMBER OF VIEWS: two views TECHNIQUE: Digital Frontal and Lateral radiographic views of the chest acquired. RADIATION DOSE: NA LIMITATIONS: none FINDINGS: LUNGS AND PLEURA: Chronic lingular atelectasis or scarring along the left cardiac apex. No acute infiltrates. No pleural effusion or pneumothorax. MEDIASTINUM AND HILAR STRUCTURES: No masses or contour abnormalities. HEART AND VASCULAR STRUCTURES: Heart normal size. No evidence for failure. BONES: No acute findings. HARDWARE: Right jugular central venous dialysis catheter tip in the right atrium. OTHER: No other significant finding. IMPRESSION: NO ACUTE RADIOGRAPHIC FINDING IN THE CHEST. TECHNICAL DOCUMENTATION: JOB ID: [id number] 2010 [employer]- All Rights Reserved Reading location - IP/workstation name: [email or web address]
[2019-11-19] MEDS ORDERED: OXYCODONE-ACETAMINOPHEN 5-325 MG TABLET PO ONE (15:02)
[2019-11-19 15:11] LABS: ABSOLUTE BASOPHILS # (AUTO) 0.1 10^3/uL (0.0-0.2); ABSOLUTE EOSINOPHILS # (AUTO) 0.4 10^3/uL (0.0-0.6); ABSOLUTE LYMPHOCYTES (AUTO) 2.4 10^3/uL (0.5-4.7); ABSOLUTE MONOCYTES (AUTO) 0.9 10^3/uL (0.1-1.4); ABSOLUTE NEUT (AUTO) 7.2 10^3/uL (1.7-8.2); BASOPHILS % (AUTO) 0.6 % (0-2); EOSINOPHILS % (AUTO) 3.7 % (0-6); HEMATOCRIT 36.4 % (36.0-47.0); HEMOGLOBIN 12.8 g/dL (12.0-15.5); LYMPHOCYTES % (AUTO) 22.1 % (13-45); MEAN CORPUSCULAR HEMOGLOBIN 30.3 pg (27.0-33.4); MEAN CORPUSCULAR HGB CONC 35.2 g/dL (32.0-36.0); MEAN CORPUSCULAR VOLUME 86 fl (80-97); MONOCYTES % (AUTO) 8.1 % (3-13); PLATELET COUNT 225 10^3/uL (150-450); RED BLOOD COUNT 4.23 10^6/uL (3.72-5.28); RED CELL DISTRIBUTION WIDTH 13.7 % (11.5-14.0); SEGMENTED NEUTROPHILS % (AUTO) 65.5 % (42-78); TOTAL CELLS COUNTED % (AUTO) 100 %; WHITE BLOOD COUNT 10.9 10^3/uL (4.0-10.5)
[2019-11-19 15:31] LABS: ALBUMIN 4.3 g/dL (3.5-5.0); ALKALINE PHOSPHATASE 146 U/L (38-126); ANION GAP 11 (5-19); ASPARTATE AMINO TRANSFERASE 25 U/L (14-36); BILIRUBIN,DIRECT 0.1 mg/dL (0.0-0.4); BILIRUBIN,TOTAL 0.4 mg/dL (0.2-1.3); BLOOD UREA NITROGEN 31 mg/dL (7-20); CALCIUM 9.5 mg/dL (8.4-10.2); CARBON DIOXIDE 30 mmol/L (22-30); CHLORIDE 98 mmol/L (98-107); GLUCOSE 216 mg/dL (75-110); POTASSIUM 4.7 mmol/L (3.6-5.0); TOTAL PROTEIN 8.4 g/dL (6.3-8.2)
--- NOTE | 2019-11-19 16:12 | ER Document Report ---
ED General - General Chief Complaint: Flank Pain Stated Complaint: LEFT SIDE FLANK PAIN Time Seen by Provider: 11/19/19 13:43 Primary Care Provider: BRENT ALVAREZ MD [Primary Care Provider] - Follow up as needed Mode of Arrival: Ambulatory Notes: HPI: 64-year-old female presents today with 3 weeks of pain to the left posterior back radiating to the left lateral rib cage. She denies any trauma. She states it hurts more when she stands up and moves her left arm. Patient did have a fistula revision on 3 weeks ago and is currently receiving Thursday, Thursday, Thursday dialysis. She denies any cough, shortness of breath, pain with urination, abdominal pain, or anterior chest pain. ROS: See HPI All other review of systems reviewed and otherwise negative Reviewed vital signs and nursing note as charted by RN. PHYSICAL EXAM: CONSTITUTIONAL: Alert and oriented and responds appropriately to questions. Well-appearing; well-nourished HEAD: Normocephalic; atraumatic NECK: Supple without meningismus; non-tender; no cervical lymphadenopathy, no masses CARD: Regular rate and rhythm; no murmurs; symmetric distal pulses RESP: Normal chest excursion without splinting or tachypnea; breath sounds clear and equal bilaterally; no wheezes, no rhonchi, no rales; patient has distinct point tenderness to the left posterior trapezius/rib area with no erythema, fluctuance, or induration ABD/GI: Normal bowel sounds; non-distended; soft, non-tender to palpation of all 4 quadrants of the abdomen BACK: The back appears normal and is non-tender to palpation EXT: Normal ROM in all joints; non-tender to palpation; no edema; thrill present to the left forearm region without any obvious swelling or erythema SKIN: No acute lesions noted NEURO: CN 2-12 intact; 5/5 bilateral upper and lower extremity strength with sensation intact to light touch PSYCH: The patient's mood and manner are appropriate. Grooming and personal hygiene are appropriate. TRAVEL OUTSIDE OF THE [place] IN LAST 30 DAYS: No - Related Data Allergies/Adverse Reactions: crab Allergy (Severe, Verified 11/19/19 13:39) Anaphylaxis saxagliptin [Saxagliptin] Allergy (Intermediate, Verified 11/19/19 13:39) itching Past Medical History - General Information source: Patient - Social History Smoking Status: Never Smoker Chew tobacco use (# tins/day): No Frequency of alcohol use: None Drug Abuse: None Family History: CAD, Malignancy - mother ovarian cancer, Other - Dad- [place] @ 55 Patient has homicidal ideation: No - Past Medical History Cardiac Medical History: Reports: Hx Hypercholesterolemia, Hx Hypertension Denies: Hx Coronary Artery Disease, Hx Heart Attack Pulmonary Medical History: Reports: Hx Sleep Apnea Denies: Hx Asthma, Hx Bronchitis, Hx COPD, Hx Pneumonia Neurological Medical History: Denies: Hx Cerebrovascular Accident, Hx Seizures Endocrine Medical History: Reports: Hx Diabetes Mellitus Type 2 Renal/ Medical History: Reports: Hx End Stage Renal Disease, Hx Hemodialysis. Denies: Hx Peritoneal Dialysis GI Medical History: Reports: Hx Gastroesophageal Reflux Disease. Denies: Hx Hepatitis, Hx Hiatal Hernia, Hx Ulcer Musculoskeletal Medical History: Reports Hx Arthritis Psychiatric Medical History: Denies: Hx Depression Infectious Medical History: Denies: Hx Hepatitis Past Surgical History: Reports: Hx Abdominal Surgery - cholecystectomy, Hx Gynecologic Surgery - Ectopic . Denies: Hx Hysterectomy, Hx Mast ectomy, Hx Open Heart Surgery, Hx Pacemaker - Immunizations Hx Diphtheria, Pertussis, Tetanus Vaccination: No Hx Pneumococcal Vaccination: 11/28/12 Physical Exam - Vital signs Vitals: Temp Pulse Resp BP Pulse Ox 98.4 F 99 18 170/61 H 93 11/19/19 13:34 11/19/19 13:34 11/19/19 13:34 11/19/19 13:34 11/19/19 13:34 Course - Re-evaluation Re-evalutation: Given the history and physical examination as above, I do believe this is most likely musculoskeletal in nature. I will order an x-ray of the chest to evaluate for the possibility of a rib fracture despite any falls. I do believe PE, dissection, and ACS to be extremely unlikely given the very distinct point tenderness to palpation of the left posterior back muscles worse with movement of the left arm or torso. 11/19/19 17:18 Labs as recorded. Examination unchanged. Patient's pain is much improved. EKG shows a heart of 89, normal sinus rhythm, poor wave progression, no ST elevation or depression. Old EKG looks very similar. Given the above history and physical exam point tenderness as described above, with an x-ray showing no obvious pneumothorax, I do believe pulmonary dissection or pulmonary embolism to be extraordinarily unlikely. Patient will be discharged home with a course of pain medications and strict return precautions. - Vital Signs Vital signs: Temp Pulse Resp BP Pulse Ox 98.4 F 99 18 170/61 H 93 11/19/19 13:39 11/19/19 13:34 11/19/19 13:34 11/19/19 13:34 11/19/19 13:34 - Laboratory Result Diagrams: 11/19/19 14:45 11/19/19 14:45 Laboratory results interpreted by me: 11/19/19 11/19/19 14:45 14:45 WBC 10.9 H BUN 31 H Creatinine 4.91 H Est GFR ( Amer) 11 L Est GFR (MDRD) Non-Af 9 L Glucose 216 H Alkaline Phosphatase 146 H Total Protein 8.4 H Lipase 386.6 H Discharge - Discharge Clinical Impression: Upper back strain Qualifiers: Encounter type: initial encounter Qualified Code(s): S29.012A - Strain of muscle and tendon of back wall of thorax, initial encounter Condition: Good Disposition: HOME, SELF-CARE Additional Instructions: Come back immediately for any increased pain, change in location or quality of pain, cough, shortness of breath, fever, weakness or numbness, or any other acute problems. Please make sure that you follow-up with the primary care physician as we have discussed. Prescriptions: Hydrocodone/Acetaminophen [Empire 5-325 mg Tablet] 1 tab PO Q8 #10 tablet Referrals: BRENT ALVAREZ MD [Primary Care Provider] - Follow up as needed
--- NOTE | 2019-11-19 20:32 | EKG REPORT ---
SEVERITY:- ABNORMAL ECG - SINUS RHYTHM ABNRM R PROG, CONSIDER ASMI OR LEAD PLACEMENT : Confirmed by: Ruddy Mcallister MD 19-Nov-2019 20:32:15
== END 2019-11-19 17:42 | disposition home or self-care (01) ==
LOC: ER 13:30
DX: S29.012A Strain of muscle and tendon of back wall of thorax, initial encounter (principal); X58.XXXA Exposure to other specified factors, initial encounter; R07.9 Chest pain, unspecified; R07.89 Other chest pain; E78.00 Pure hypercholesterolemia, unspecified; I12.0 Hypertensive chronic kidney disease with stage 5 chronic kidney disease or end stage renal disease; E11.22 Type 2 diabetes mellitus with diabetic chronic kidney disease; N18.6 End stage renal disease; Z99.2 Dependence on renal dialysis; Z90.49 Acquired absence of other specified parts of digestive tract
CPT/HCPCS: 93005; 99284; 36415; 83690; 85025; 80053; 71046; 93010; A9270

== ENCOUNTER 2020-02-10 10:07 | Emergency (ER) | payer MEDICARE, MEDICAID ==
[2020-02-10 12:09] LABS: APPEARANCE,URINE SLIGHTLY-CLOUDY; BILIRUBIN,URINE NEGATIVE (NEGATIVE); COLOR,URINE YELLOW; GLUCOSE, URINE 150 mg/dL (NEGATIVE); KETONES,URINE NEGATIVE (NEGATIVE); LEUKOCYTE ESTERASE,URINE TRACE (NEGATIVE); NITRITE,URINE NEGATIVE (NEGATIVE); PROTEIN,URINE >=500 mg/dL (NEGATIVE); URINE SPECIFIC GRAVITY 1.009; UROBILINOGEN,URINE NEGATIVE mg/dL (<2.0)
[2020-02-10 13:06] LABS: ABSOLUTE EOSINOPHILS # (AUTO) 1.4 10^3/uL (0.0-0.6); ABSOLUTE LYMPHOCYTES (AUTO) 1.4 10^3/uL (0.5-4.7); ABSOLUTE MONOCYTES (AUTO) 0.6 10^3/uL (0.1-1.4); ABSOLUTE NEUT (AUTO) 8.2 10^3/uL (1.7-8.2); BASOPHILS % (AUTO) 0.4 % (0-2); HEMATOCRIT 35.6 % (36.0-47.0); HEMOGLOBIN 12.1 g/dL (12.0-15.5); LYMPHOCYTES % (AUTO) 11.9 % (13-45); MEAN CORPUSCULAR HEMOGLOBIN 30.2 pg (27.0-33.4); MEAN CORPUSCULAR HGB CONC 34.1 g/dL (32.0-36.0); MEAN CORPUSCULAR VOLUME 89 fl (80-97); PLATELET COUNT 243 10^3/uL (150-450); RED BLOOD COUNT 4.02 10^6/uL (3.72-5.28); RED CELL DISTRIBUTION WIDTH 14.1 % (11.5-14.0); SEGMENTED NEUTROPHILS % (AUTO) 70.7 % (42-78); TOTAL CELLS COUNTED % (AUTO) 100 %; WHITE BLOOD COUNT 11.6 10^3/uL (4.0-10.5)
[2020-02-10 13:07] LABS: ALBUMIN 3.5 g/dL (3.5-5.0); ALKALINE PHOSPHATASE 169 U/L (38-126); ANION GAP 7 (5-19); ASPARTATE AMINO TRANSFERASE 28 U/L (14-36); BILIRUBIN,DIRECT 0.2 mg/dL (0.0-0.4); BILIRUBIN,TOTAL 0.5 mg/dL (0.2-1.3); BLOOD UREA NITROGEN 24 mg/dL (7-20); CALCIUM 8.5 mg/dL (8.4-10.2); CARBON DIOXIDE 28 mmol/L (22-30); CHLORIDE 101 mmol/L (98-107); CREATINE KINASE 42 U/L (30-135); GLUCOSE 215 mg/dL (75-110); POTASSIUM 3.8 mmol/L (3.6-5.0); TOTAL PROTEIN 7.3 g/dL (6.3-8.2)
[2020-02-10 13:18] LABS: CREATINE KINASE MB 0.23 ng/mL (<4.55)
--- NOTE | 2020-02-10 13:21 | RADIOLOGY REPORT (SQ) ---
EXAM DESCRIPTION: CHEST SINGLE VIEW IMAGES COMPLETED DATE/TIME: 02/10/2020 1:09 pm REASON FOR STUDY: chest pain COMPARISON: 11/19/2019 EXAM PARAMETERS: NUMBER OF VIEWS: One view. TECHNIQUE: Single frontal radiographic view of the chest acquired. RADIATION DOSE: NA LIMITATIONS: None. FINDINGS: LUNGS AND PLEURA: No opacities, masses or pneumothorax. No pleural effusion. MEDIASTINUM AND HILAR STRUCTURES: No masses. Contour normal. HEART AND VASCULAR STRUCTURES: Heart normal in size. Vascular calcification. BONES: No acute findings. HARDWARE: None in the chest. OTHER: No other significant finding. IMPRESSION: NO ACUTE RADIOGRAPHIC FINDING IN THE CHEST. TECHNICAL DOCUMENTATION: JOB ID: [id number] 2010 [employer]- All Rights Reserved Reading location - IP/workstation name: [email or web address]
[2020-02-10 13:24] LABS: TROPONIN I < 0.012 ng/mL
--- NOTE | 2020-02-10 14:12 | ER Document Report ---
Entered by ENMA GERARD SCRIBE 02/10/20 1354 Acting as scribe for:DESTINEY KRAMER MD ED General - General Chief Complaint: Chest Pain Stated Complaint: ABDOMINAL PAIN/DIARRHEA Time Seen by Provider: 02/10/20 13:14 Primary Care Provider: BERNT ALVAREZ MD [Primary Care Provider] - Follow up as needed TRAVEL OUTSIDE OF THE [place] IN LAST 30 DAYS: No - Related Data Allergies/Adverse Reactions: crab Allergy (Severe, Verified 11/19/19 13:39) Anaphylaxis saxagliptin [Saxagliptin] Allergy (Intermediate, Verified 11/19/19 13:39) itching Past Medical History - Social History Smoking Status: Never Smoker Chew tobacco use (# tins/day): No Frequency of alcohol use: None Drug Abuse: None Family History: CAD, Malignancy - mother ovarian cancer, Other - Dad- ID @ 55 - Past Medical History Cardiac Medical History: Reports: Hx Hypercholesterolemia, Hx Hypertension Denies: Hx Coronary Artery Disease, Hx Heart Attack Pulmonary Medical History: Reports: Hx Sleep Apnea Denies: Hx Asthma, Hx Bronchitis, Hx COPD, Hx Pneumonia Neurological Medical History: Denies: Hx Cerebrovascular Accident, Hx Seizures Endocrine Medical History: Reports: Hx Diabetes Mellitus Type 2 Renal/ Medical History: Reports: Hx End Stage Renal Disease, Hx Hemodialysis. Denies: Hx Peritoneal Dialysis GI Medical History: Reports: Hx Gastroesophageal Reflux Disease. Denies: Hx Hepatitis, Hx Hiatal Hernia, Hx Ulcer Musculoskeletal Medical History: Reports Hx Arthritis Psychiatric Medical History: Denies: Hx Depression Infectious Medical History: Denies: Hx Hepatitis Past Surgical History: Reports: Hx Abdominal Surgery - cholecystectomy, Hx Gynecologic Surgery - Ectopic . Denies: Hx Hysterectomy, Hx Mastectomy, Hx Open Heart Surgery, Hx Pacemaker - Immunizations Hx Diphtheria, Pertussis, Tetanus Vaccination: No Hx Pneumococcal Vaccination: 11/28/12 Physical Exam - Vital signs Vitals: Resp Pulse Ox 22 H 96 02/10/20 10:28 02/10/20 10:28 - Notes Notes: Physical Exam: General: Alert, appears well. HEENT: Normocephalic. Atraumatic. PERRL. Extraocular movements intact. Oropharynx clear. Neck: Supple. Non-tender. Respiratory: No respiratory distress. Clear and equal breath sounds bilaterally. Cardiovascular: Regular rate and rhythm. Abdominal: Normal Inspection. Non-tender. No distension. Normal Bowel Sounds. Back: No gross abnormalities. Extremities: Moves all four extremities. Upper extremities: Normal inspection. Normal ROM. Lower extremities: Normal inspection. No edema. Normal ROM. Neurological: Normal cognition. AAOx4. Normal speech. Psychological: Normal affect. Normal Mood. Skin: Warm. Dry. Normal color. Course - Re-evaluation Re-evalutation: 02/10/20 14:06 Patient resting comfortably not showing any signs of distress at the time denies any chest pain shortness of breath fever chills. Patient is status post dialysis today and during dialysis she began to have cramping and some chest discomfort. Patient states all that has resolved at this time. - Vital Signs Vital signs: Temp Pulse Resp BP Pulse Ox 98.1 F 26 H 164/68 H 94 02/10/20 10:43 02/10/20 12:01 02/10/20 12:00 02/10/20 12:01 02/10/20 14:06 Vital signs stable - Laboratory Result Diagrams: 02/10/20 10:33 02/10/20 10:33 Laboratory results interpreted by me: 02/10/20 02/10/20 02/10/20 09:00 10:33 10:33 WBC 11.6 H Hct 35.6 L RDW 14.1 H Lymph % (Auto) 11.9 L Eos % (Auto) 12.0 H Absolute Eos (auto) 1.4 H Sodium 135.5 L BUN 24 H Creatinine 3.16 H Est GFR ( Amer) 18 L Est GFR (MDRD) Non-Af 15 L Glucose 215 H Alkaline Phosphatase 169 H Urine Protein >=500 H Urine Glucose (UA) 150 H Ur Leukocyte Esterase TRACE H 02/10/20 14:06 Vital signs patient's laboratory shows no acute process patient does have abnormal BUN/creatinine and 24 BUN and creatinine 3.1. Patient's troponin is negative for any elevation. - Diagnostic Test Radiology reviewed: Image reviewed, Reports reviewed Radiology results interpreted by me: 02/10/20 14:08 Chest x-ray shows no acute process no infiltrate. - EKG Interpretation by Me Additional EKG results interpreted by me: 02/10/20 14:09 Twelve-lead EKG shows normal sinus rhythm rate of 86 with borderline R wave progression across the anterior leads. Also noted borderline T waves abnormal. No ST elevations to suggest ID. Discharge - Discharge Clinical Impression: CKD stage 4 due to type 2 diabetes mellitus Disposition: ADMITTED INPATIENT Instructions: Chest Pain of Unclear Cause ([facility]) Referrals: BRENT ALVAREZ MD [Primary Care Provider] - Follow up as needed I personally performed the services described in the documentation, reviewed and edited the documentation which was dictated to the scribe in my presence, and it accurately records my words and actions.
[2020-02-10 14:40] VITALS: BP 169/63
--- NOTE | 2020-02-11 14:06 | EKG REPORT ---
SEVERITY:- BORDERLINE ECG - SINUS RHYTHM BORDERLINE R WAVE PROGRESSION, ANTERIOR LEADS BORDERLINE T WAVE ABNORMALITIES : Confirmed by: Tavo Rogers 11-Feb-2020 14:05:21
[2020-02-11] MEDS ORDERED: NORMAL SALINE 1000 ML 1,000 ML IV PRN (14:55)
== END 2020-02-10 14:39 | disposition home or self-care (01) ==
LOC: ER 10:07
DX: E11.22 Type 2 diabetes mellitus with diabetic chronic kidney disease (principal); N18.4 Chronic kidney disease, stage 4 (severe); I10 Essential (primary) hypertension; Z99.2 Dependence on renal dialysis; R07.89 Other chest pain; R42 Dizziness and giddiness; R19.7 Diarrhea, unspecified; Z87.892 Personal history of anaphylaxis; Z91.013 Allergy to seafood; Z88.8 Allergy status to other drugs, medicaments and biological substances
CPT/HCPCS: 36415; 71045; 80053; 81001; 82550; 82553; 84484; 85025; 93005; 93010; 99285

== ENCOUNTER 2020-05-01 13:14 | Emergency (ER) | payer MEDICARE, MEDICAID ==
[2020-05-01 13:31] VITALS: BP 159/49
--- NOTE | 2020-05-01 14:54 | ER Document Report ---
ED Medical Screen (RME) - General Chief Complaint: Chest Pain Stated Complaint: CHEST PAIN Time Seen by Provider: 05/01/20 14:46 Primary Care Provider: BRENT ALVAREZ MD [Primary Care Provider] - Follow up as needed Mode of Arrival: Wheelchair Information source: Patient Notes: HPI; 65-year-old female end-stage renal disease on dialysis Thursday presents to the emergency room complaining of intermittent sharp left anterior chest wall pain for the past 2 weeks. Has been taking aspirin with minimal relief. States gets some relief after dialysis. Has not seen her primary care physician for it. PE: Alert and oriented x3. Mild distress noted. Lungs: Clear to auscultation without rales, rhonchi, wheezes. Heart regular rate and rhythm with a grade 2 out of 6 systolic murmur. No rubs no gallops. I have greeted and performed a rapid initial assessment of this patient. A comprehensive ED assessment and evaluation of the patient, analysis of test results and completion of the medical decision making process will be conducted by additional ED providers. I have specifically instructed the patient or family members with the patient to immediately return to any nursing staff should anything change in the patient's condition or with their chief complaint. TRAVEL OUTSIDE OF THE [place] IN LAST 30 DAYS: No - Related Data Allergies/Adverse Reactions: crab Allergy (Severe, Verified 05/01/20 14:45) Anaphylaxis saxagliptin [Saxagliptin] Allergy (Intermediate, Verified 05/01/20 14:45) itching Past Medical History - Past Medical History Cardiac Medical History: Reports: Hx Hypercholesterolemia, Hx Hypertension Denies: Hx Coronary Artery Disease, Hx Heart Attack Pulmonary Medical History: Reports: Hx Sleep Apnea Denies: Hx Asthma, Hx Bronchitis, Hx COPD, Hx Pneumonia Neurological Medical History: Denies: Hx Cerebrovascular Accident, Hx Seizures Endocrine Medical History: Reports: Hx Diabetes Mellitus Type 2 Renal/ Medical History: Reports: Hx End Stage Renal Disease, Hx Hemodialysis. Denies: Hx Peritoneal Dialysis GI Medical History: Reports: Hx Gastroesophageal Reflux Disease. Denies: Hx Hepatitis, Hx Hiatal Hernia, Hx Ulcer Musculoskeltal Medical History: Reports Hx Arthritis Psychiatric Medical History: Denies: Hx Depression Infectious Medical History: Denies: Hx Hepatitis Past Surgical History: Reports: Hx Abdominal Surgery - cholecystectomy, Hx Allergy And Immunology Chief ecologic Surgery - Ectopic . Denies: Hx Hysterectomy, Hx Mastectomy, Hx Open Heart Surgery, Hx Pacemaker - Immunizations Hx Diphtheria, Pertussis, Tetanus Vaccination: No Physical Exam - Vital signs Vitals: Temp Pulse Resp BP Pulse Ox 98.1 F 82 20 159/49 H 98 05/01/20 13:24 05/01/20 13:24 05/01/20 13:24 05/01/20 13:24 05/01/20 13:24 Course - Vital Signs Vital signs: Temp Pulse Resp BP Pulse Ox 98.1 F 82 20 159/49 H 98 05/01/20 13:24 05/01/20 13:24 05/01/20 13:24 05/01/20 13:24 05/01/20 13:24 Doctor's Discharge - Discharge Referrals: BRENT ALVAREZ MD [Primary Care Provider] - Follow up as needed
--- NOTE | 2020-05-01 15:40 | RADIOLOGY REPORT (SQ) ---
EXAM DESCRIPTION: CHEST SINGLE VIEW IMAGES COMPLETED DATE/TIME: 05/01/2020 3:31 pm REASON FOR STUDY: chest pain COMPARISON: 02/10/2020 EXAM PARAMETERS: NUMBER OF VIEWS: One view. TECHNIQUE: Single frontal radiographic view of the chest acquired. RADIATION DOSE: NA LIMITATIONS: None. FINDINGS: LUNGS AND PLEURA: No opacities, masses or pneumothorax. No pleural effusion. MEDIASTINUM AND HILAR STRUCTURES: No masses. Contour normal. HEART AND VASCULAR STRUCTURES: Heart normal in size. Normal vasculature. BONES: No acute findings. HARDWARE: None in the chest. OTHER: No other significant finding. IMPRESSION: NO ACUTE RADIOGRAPHIC FINDING IN THE CHEST. TECHNICAL DOCUMENTATION: JOB ID: [id number] 2010 [employer]- All Rights Reserved Reading location - IP/workstation name: [email or web address]
--- NOTE | 2020-05-01 17:04 | ER Document Report ---
Doctor's Note Notes: 05/01/20 17:03 Was informed by nursing staff that patient would like to leave AGAINST MEDICAL ADVICE. Patient was counseled on the risks of leaving AGAINST MEDICAL ADVICE. The patient has chosen to leave the facility against medical advice. The relevant issues have been reviewed and discussed with the patient and family at the bedside. At the time of this assessment there is no indication for involuntary commitment. The patient is alert, oriented, and able to express clearly their reasoning for not wanting to remain in the emergency department for further treatment. The patient is not clinically psychotic, intoxicated, and denies and suicidal ideation. Differential or suspected diagnoses based on medical screening exam: Chest pain The patient is aware of the concerning diagnoses and acknowledges understanding of the reasons for the following recommendations: Loss of life, permanent disability, chronic pain, worsening of condition, cardiac dysfunction, respiratory dysfunction ,loss of current lifestyle, urinary dysfunction The following recommendations/services were offered and refused: Further testing and evaluation The following risks were explained: , permanent disability, loss of current lifestyle, respiratory dysfunction, urinary dysfunction, chronic pain, Clinical impression: Patient is competent to make decisions regarding the medical treatment that is being offered.
--- NOTE | 2020-05-01 17:47 | EKG REPORT ---
SEVERITY:- ABNORMAL ECG - SINUS RHYTHM ATRIAL PREMATURE COMPLEX ABNRM R PROG, CONSIDER ASMI OR LEAD PLACEMENT BORDERLINE T ABNORMALITIES, INFERIOR LEADS : Confirmed by: Tavo Rogers 01-May-2020 17:46:59
--- OUTSIDE RECORDS SUMMARY | 2020-05-01 17:51 | XMS REPORT ---
:1955 [facility] [address] [place] [id number] Care Team Providers Name Role Phone Charo Capone Primary Care Physician Unavailable Karley Capone Attending Clinician Unavailable Allergies, Adverse Reactions, Alerts Allergy Name Allergy Status Severity Reaction(s) Onset Inactive Treat ing Comments Type Date Date Clinician Crab Allergy to Active 2018- substance 03-19 00:00: 00 Saxagliptin Allergy to Active substance 03-19 00:00: 00 Medications Ordered Filled Start Stop Current Ordering Indication Dosage Frequency Signature Comments Components Medication Medication Date Date Medication? Clinician (SIG) Name Name amlodipine No amlodipine 5 mg tablet 5 mg Take 1 tablet tablet Take 1 every day tablet by oral every day route. by oral route. amoxicillin No 1 Q12H amoxicilli 875 n 875 mg-potassiu mg-potassi m um clavulanate clavulanat 125 mg e 125 mg tablet Take tablet 1 tablet Take 1 every 12 tablet hours by every 12 oral route hours by for 10 oral route days. for 10 days. Aspirin Low No 1 Q1D Aspirin Dose 81 mg Low Dose tablet,gianna 81 mg yed release tablet,del Take 1 ayed tablet release every day Take 1 by oral tablet route. every day by oral route. atorvastati No atorvastat n 40 mg in 40 mg tablet TAKE tablet 1 TABLET BY TAKE 1 MOUTH EVERY TABLET BY DAY MOUTH EVERY DAY benzonatate No 1capsul TID benzonatat 200 mg e(s) e 200 mg capsule capsule Take 1 Take 1 capsule 3 capsule 3 times a day times a by oral day by route. oral route. fluticasone No 2spray( Q1D fluticason propionate s) e 50 propionate mcg/actuati 50 on nasal mcg/actuat spray,suspe ion nasal nsion Posen spray,susp 2 sprays ension every day Posen 2 by sprays intranasal every day route for by 30 days. intranasal route for 30 days. losartan No 1 Q1D losartan 100 mg 100 mg tablet Take tablet 1 tablet Take 1 every day tablet by oral every day route. by oral route. Lyrica 75 No 1capsul BID Lyrica 75 mg capsule e(s) mg capsule Take 1 Take 1 capsule capsule twice a day twice a by oral day by route for oral route 30 days. for 30 days. metformin No metformin 1,000 mg 1,000 mg tablet TAKE tablet 1 TABLET BY TAKE 1 MOUTH TWICE TABLET BY DAILY MOUTH TWICE DAILY metoprolol No metoprolol succinate succinate ER 50 mg ER 50 mg tablet,exte tablet,ext nded ended release 24 release 24 hr TAKE 1 hr TAKE 1 TABLET BY TABLET BY MOUTH EVERY MOUTH DAY EVERY DAY Nesina 25 No 1 Q1D Nesina 25 mg tablet mg tablet Take 1 Take 1 tablet tablet every day every day by oral by oral route for route for 30 days. 30 days. Novolog No Novolog Flexpen Flexpen U-100 U-100 Insulin Insulin aspart 100 aspart 100 unit/mL (3 unit/mL (3 mL) mL) subcutaneou subcutaneo s 0 UNIT SC us 0 UNIT SLIDING SC SLIDING SCALEAC & SCALE AC & HSMAX HS MAX 40UNITS PER 40UNITS DAY PER DAY omeprazole No omeprazole 40 mg 40 mg capsule,del capsule,de ayed layed release release TAKE 1 TAKE 1 CAPSULE BY CAPSULE BY MOUTH EVERY MOUTH DAY EVERY DAY Toujeo No 40unit( Q1D Toujeo SoloStar s) SoloStar U-300 U-300 Insulin 300 Insulin unit/mL 300 (1.5 mL) unit/mL subcutaneou (1.5 mL) s pen subcutaneo Inject 40 us pen units every Inject 40 day by units subcutaneou every day s route for by 30 days. subcutaneo us route for 30 days. amlodipine No 1 Q1D amlodipine 10 mg 10 mg tablet Take tablet 1 tablet Take 1 every day tablet by oral every day route for by oral 90 days. route for 90 days. Augmentin No 1 Q12H Augmentin 500 mg-125 500 mg-125 mg tablet mg tablet Take 1 Take 1 tablet tablet every 12 every 12 hours by hours by oral route oral route for 10 for 10 days. days. benzonatate No 1capsul TID benzonatat 100 mg e(s) e 100 mg capsule capsule take 1 take 1 capsule by capsule by oral route oral route tid prn tid prn calcium No 1 Q1D calcium carbonate carbonate 600 mg 600 mg calcium calcium (1,500 mg) (1,500 mg) tablet Take tablet 1 tablet Take 1 every day tablet by oral every day route for by oral 30 days. route for 30 days. patiromer No 1packet Q1D patiromer calcium (s) calcium sorbitex sorbitex 8.4 gram 8.4 gram oral powder oral packet Take powder 1 packet packet every day Take 1 by oral packet route at every day bedtime for by oral 30 days. route at bedtime for 30 days. ranitidine No 1 Q1D ranitidine 150 mg 150 mg tablet Take tablet 1 tablet Take 1 every day tablet by oral every day route for by oral 30 days. route for 30 days. terazosin 5 No 1capsul Q1D terazosin mg capsule e(s) 5 mg Take 1 capsule capsule Take 1 every day capsule by oral every day route. by oral route. calcitriol No .25caps Q1D calcitriol 0.25 mcg ule(s) 0.25 mcg capsule capsule Take 0.25 Take 0.25 capsules capsules every day every day by oral by oral route. route. calcium No 667mg TID calcium acetate(haile acetate(ph sphate osphate binders) binders) 667 mg 667 mg capsule capsule Take 667 mg Take 667 3 times a mg 3 times day by oral a day by route. oral route. Stool No 1capsul BID Stool Softener e(s) Softener 100 mg 100 mg capsule capsule take 1 take 1 capsule by capsule by ora route ora route bid bid furosemide No 1 Q1D furosemide 40 mg 40 mg tablet Take tablet 1 tablet Take 1 every day tablet by oral every day route for by oral 30 days. route for 30 days. hydralazine No 10mg TID hydralazin 10 mg e 10 mg tablet 10 tablet 10 mg 3 times mg 3 times a day by a day by oral route. oral route. isosorbide No 1 TID isosorbide dinitrate dinitrate 20 mg 20 mg tablet Take tablet 1 tablet 3 Take 1 times a day tablet 3 by oral times a route for day by 30 days. oral route for 30 days. sodium No 1mg QID sodium bicarbonate bicarbonat 650 mg e 650 mg tablet Take tablet 1 tablet 4 Take 1 times a day tablet 4 by oral times a route. day by oral route. Amitiza 24 No 1capsul BID Amitiza 24 mcg capsule e(s) mcg Take 1 capsule capsule Take 1 twice a day capsule by oral twice a route for day by 30 days. oral route for 30 days. aspirin 81 No 81mg BID aspirin 81 mg mg tablet,gianna tablet,del yed release ayed Take 81 mg release twice a day Take 81 mg by oral twice a route. day by oral route. hydralazine No 1 TID hydralazin 25 mg e 25 mg tablet Take tablet 1 tablet 3 Take 1 times a day tablet 3 by oral times a route for day by 30 days. oral route for 30 days. metoprolol No 1mg Q1D metoprolol succinate succinate ER 100 mg ER 100 mg tablet,exte tablet,ext nded ended release 24 release 24 hr Take 1 hr Take 1 tablet tablet every day every day by oral by oral route. route. oxycodone-a No oxycodone- cetaminophe acetaminop n 5 mg-325 hen 5 mg tablet mg-325 mg tablet sodium No 1 Q1D sodium chloride 1 chloride 1 gram tablet gram take 1 gram tablet tablet by take 1 oral route gram daily tablet by oral route daily sodium No sodium polystyrene polystyren sulfonate e oral powder sulfonate oral powder Bactrim DS No 1 Q12H Bactrim DS 800 mg-160 800 mg-160 mg tablet mg tablet Take 1 Take 1 tablet tablet every 12 every 12 hours by hours by oral route oral route for 5 days. for 5 days. amoxicillin No 1 Q12H amoxicilli 500 n 500 mg-potassiu mg-potassi m um clavulanate clavulanat 125 mg e 125 mg tablet Take tablet 1 tablet Take 1 every 12 tablet hours by every 12 oral route hours by for 5 days. oral route for 5 days. Humalog No Humalog KwikPen KwikPen (U-100) (U-100) Insulin 100 Insulin unit/mL 100 subcutaneou unit/mL s SC PER subcutaneo SLIDING us SC PER SCALE/PREME SLIDING AL & HS SCALE/RASHID ACCORDING EAL & HS TO GLUCOSE ACCORDING READING TO GLUCOSE READING lactulose No lactulose 10 gram/15 10 gram/15 mL oral mL oral solution solution take 15 ML take 15 ML PO ON PO ON NON-DIALYSI NON-DIALYS S DAYS IS DAYS lidocaine-p No lidocaine- rilocaine prilocaine 2.5 %-2.5 % 2.5 %-2.5 topical % topical cream APPLY cream TO ACCESS APPLY TO 30 TO 60 ACCESS 30 MINUTES TO 60 BEFORE MINUTES DIALYSIS BEFORE DIALYSIS esomeprazol No 1capsul Q1D esomeprazo e magnesium e(s) le 40 mg magnesium capsule,del 40 mg ayed capsule,de release layed Take 1 release capsule Take 1 every day capsule by oral every day route for by oral 90 days. route for 90 days. famotidine No 1 Q1D famotidine 20 mg 20 mg tablet Take tablet 1 tablet Take 1 every day tablet by oral every day route at by oral bedtime for route at 90 days. bedtime for 90 days. tramadol No 1 Q4H tramadol 37.5 37.5 mg-acetamin mg-acetami ophen 325 nophen 325 mg tablet mg tablet Take 1 Take 1 tablet tablet every 4 every 4 hours by hours by oral route oral route as needed as needed for 30 for 30 days. days. 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 Disease 00:00: involving Involving 00 multiple Multiple joints Joints Hypertensiv Hypertensiv Problem Active e urgency e Urgency 03-19 00:00: 00 Type 2 Type 2 Problem Active diabetes Diabetes 01-15 mellitus Mellitus 00:00: 00 Hyperlipide Hyperlipide Problem Active gordy gordy 01-15 00:00: 00 Obstructive Obstructive Problem Active sleep apnea Sleep Apnea 01-15 syndrome Syndrome 00:00: 00 Essential Essential Problem Active hypertensio Hypertensio 01-15 n n 00:00: 00 Gastroesoph Gastroesoph Problem Active ageal ageal 01-15 reflux Reflux 00:00: disease Disease 00 Chronic Chronic Problem Inactiv renal Renal e 01-15 impairment Impairment 00:00: 00 Precordial Precordial Problem Active pain Pain Electrocard Electrocard Problem Active iogram iogram abnormal Abnormal Procedures Procedure Date / Time Performed Performing Clinician Isra e XR, thoracic spine 2019-10-13 00:00:00 ELECTROCARDIOGRAM COMPLETE 2019-10-13 00:00:00 ELECTROCARDIOGRAM COMPLETE 2019-08-11 00:00:00 sudomotor testing of autonomic 2019-08-11 00:00:00 nervous system function (PROC) Arteriovenous Fistulization 2019-08-09 00:00:00 impedence cardiograph 2019-01-24 00:00:00 XR, chest, 2 view 2019-01-24 00:00:00 CHEST X-RAY 2 VIEWS 2018-08-31 00:00:00 Cataract Surgery TREAT ECTOPIC Cholecystectomy Results Test Description Test Time Test Comments Text Results Atomic Results Result Comments Urinalysis macro (dipstick) panel - Urine 2020-01-05 10:51:00 Test Item Value Reference Range Comments glucose (test code = glucose) 100 mg/dL negative bilirubin (test code = bilirubin) negative negative ketones (test code = ketones) negative negative specific gravity (test code = specific gravity) 1.025 1.001-1.035 blood (test code = blood) trace negative pH (test code = pH) 7.0 5.0-9.0 protein (test code = protein) >=300 negative urobilinogen (test code = urobilinogen) 0.2 eu/dL negative nitrates (test code = nitrates) negative negative leukocytes (test code = leukocytes) trace negative sent for culture (test code = sent for culture) CPT multistix (test code = CPT multistix) 64497 CPT uriscreen accutest (test code = CPT uriscreen accutest) 31248 CBC W Auto Differential panel - [id number] 10:43:00 Test Item Value Reference Range Comments WBC (test code = WBC) 8.8 K/uL 4.1-10.9 lym% (test code = lym%) 30.9 % 10.0-58.5 lym# (test code = lym#) 2.7 % 0.6-4.1 mxd# (test code = mxd#) 0.9 % 0.0-1.8 mxd% (test code = mxd%) 10.2 % 0.1-24.0 gran (test code = gran) 5.2 % 2.0-7.8 gran% (test code = gran%) 58.9 % 37.0-92.0 RBC (test code = RBC) 4.09 M/uL 4.20-6.30 HGB (test code = HGB) 12.3 g/dL 14.1-18.1 HCT (test code = HCT) 36.5 % 34.5-53.7 MCV (test code = MCV) 89.3 fL 80.0-97.0 MCH (test code = MCH) 30.1 pg 26.0-32.0 MCHC (test code = MCHC) 33.7 g/dL 31.0-36.0 RDW (test code = RDW) 14.5 % 11.5-14.5 plt (test code = plt) 161 K/uL 140-440 MPV (test code = MPV) 8.8 fL 0.0-99.8 Microalbumin/Creatinine [Mass Ratio] in [id number] 08:55:02 Test Item Value Reference Range Comments Microalbumin (test code = Microalbumin) 150 Creatinine (test code = Creatinine) 100 Ratio (test code = Ratio) 150 Urinalysis macro (dipstick) panel - [id number] 11:28:36 Test Item Value Reference Range Comments glucose (test code = glucose) 500 mg/dL negative bilirubin (test code = bilirubin) negative negative ketones (test code = ketones) negative negative specific gravity (test code = specific gravity) 1.030 1.001-1.035 blood (test code = blood) negative negative pH (test code = pH) 5.5 5.0-9.0 protein (test code = protein) 300 mg/dL negative urobilinogen (test code = urobilinogen) 2.0 eu/dL negative nitrates (test code = nitrates) negative negative leukocytes (test code = leukocytes) negative negative sent for culture (test code = sent for culture) CPT multistix (test code = CPT multistix) >54647 CPT uriscreen accutest (test code = CPT uriscreen >24848 accutest) CBC W Auto Differential panel - [id number] 10:19:00 Test Item Value Reference Range Comments WBC (test code = WBC) 8.3 K/uL 4.1-10.9 lym% (test code = lym%) 29.2 % 10.0-58.5 lym# (test code = lym#) 2.4 % 0.6-4.1 mxd# (test code = mxd#) 0.7 % 0.0-1.8 mxd% (test code = mxd%) 8.9 % 0.1-24.0 gran (test code = gran) 5.1 % 2.0-7.8 gran% (test code = gran%) 61.9 % 37.0-92.0 RBC (test code = RBC) 4.13 M/uL 4.20-6.30 HGB (test code = HGB) 11.7 g/dL 14.1-18.1 HCT (test code = HCT) 36.5 % 34.5-53.7 MCV (test code = MCV) 88.4 fL 80.0-97.0 MCH (test code = MCH) 28.3 pg 26.0-32.0 MCHC (test code = MCHC) 32.1 g/dL 31.0-36.0 RDW (test code = RDW) 13.0 % 11.5-14.5 plt (test code = plt) 266 K/uL 140-440 MPV (test code = MPV) 7.3 fL 0.0-99.8 EKG [id number] 11:18:00 Test Item Value Reference Range Comments Rate & Rhythm (test code = Rate & 80/min, Sinus Rhythm Rhythm) QRS (test code = QRS) 86 ms IA Interval (test code = IA Interval) 150 ms QRS Duration (test code = QRS Duration) 86 ms QT Interval (test code = QT Interval) 406 ms EKG [id number] 11:18:00 Test Item Value Reference Range Comments Rate & Rhythm (test code = Rate & 80/min, Sinus Rhythm Rhythm) QRS (test code = QRS) 86 ms IA Interval (test code = IA Interval) 150 ms QRS Duration (test code = QRS Duration) 86 ms QT Interval (test code = QT Interval) 406 ms Comprehensive metabolic 2000 panel - Serum or [id number] 00:00:00 Test Item Value Reference Range Comments Glucose [Mass/volume] in Serum or Plasma 177 mg/dL 65-99 (test code = 2345-7) Urea nitrogen [Mass/volume] in Serum or 32 mg/dL 8-27 Plasma (test code = 3094-0) Creatinine [Mass/volume] in Serum or Plasma 3.80 mg/dL 0.57 -1.00 (test code = 2160-0) Glomerular filtration rate/1.73 sq 12 mL/min/1.73 >59 M.predicted among non-blacks [Volume Rate/Area] in Serum, Plasma or Blood by Creatinine-based formula (CKD-EPI) (test code = 27884-7) Glomerular filtration rate/1.73 sq 14 mL/min/1.73 >59 M.predicted among blacks [Volume Rate/Area] in Serum, Plasma or Blood by Creatinine-based formula (CKD-EPI) (test code = 22907-0) Urea nitrogen/Creatinine [Mass Ratio] in 8 12-28 Serum or Plasma (test code = 3097-3) Sodium [Moles/volume] in Serum or Plasma 140 mmol/L 134-144 (test code = 2951-2) Potassium [Moles/volume] in Serum or Plasma 4.3 mmol/L 3.5- 5.2 (test code = 2823-3) Chloride [Moles/volume] in Serum or Plasma 102 mmol/L 96-10 6 (test code = 2075-0) Carbon dioxide, total [Moles/volume] in Serum 19 mmol/L 20 -29 or Plasma (test code = 2027-9) Calcium [Mass/volume] in Serum or Plasma 9.4 mg/dL 8.7-10. 3 (test code = 21585-2) Protein [Mass/volume] in Serum or Plasma 7.8 g/dL 6.0-8.5 (test code = 2885-2) Albumin [Mass/volume] in Serum or Plasma 4.3 g/dL 3.8-4.8 (test code = 1751-7) Globulin [Mass/volume] in Serum by 3.5 g/dL 1.5-4.5 calculation (test code = 11658-1) Albumin/Globulin [Mass Ratio] in Serum or 1.2 1.2-2. 2 Plasma (test code = 1759-0) Bilirubin.total [Mass/volume] in Serum or 0.3 mg/dL 0.0-1. 2 Plasma (test code = 1975-2) Alkaline phosphatase [Enzymatic 120 IU/L 39-117 activity/volume] in Serum or Plasma (test code = 6768-6) Aspartate aminotransferase [Enzymatic 14 IU/L 0-40 activity/volume] in Serum or Plasma (test code = 1920-8) Hemoglobin A1c/Hemoglobin.total in [id number] 10:56:00 Test Item Value Reference Range Comments Hemoglobin A1c/Hemoglobin.total in Blood (test code = 8.4 % 4.2% -6.5 4548-4) lipid panel, [id number] 10:55:00 Test Item Value Reference Range Comments TC (<200 mg/dL) (test code = TC (<200 mg/dL)) 136 mg/dL <2 00 mg/dL HDL (40-60 mg/dL) (test code = HDL (40-60 mg/dL)) 45 mg/dL 40-60 mg/dL trig (<150 mg/dL) (test code = trig (<150 mg/dL)) 260 mg/dL <150 mg/dL LDL (<100 mg/dL) (test code = LDL (<100 mg/dL)) 39 mg/dL <100 non-HDL (<130 mg/dL) (test code = non-HDL (<130 91 mg/dL <130 mg/dL mg/dL)) TC/HDL ratio (4.5 or less) (test code = TC/HDL 3.0 mg/dL 4 .5 or less ratio (4.5 or less)) 10yr CHD risk (test code = 10yr CHD risk) % test code: 855690 (test code = test code: 419601) lipid panel, [id number] 10:55:00 Test Item Value Reference Range Comments TC (<200 mg/dL) (test code = TC (<200 mg/dL)) 136 mg/dL <2 00 mg/dL HDL (40-60 mg/dL) (test code = HDL (40-60 mg/dL)) 45 mg/dL 40-60 mg/dL trig (<150 mg/dL) (test code = trig (<150 mg/dL)) 260 mg/dL <150 mg/dL LDL (<100 mg/dL) (test code = LDL (<100 mg/dL)) 39 mg/dL <100 non-HDL (<130 mg/dL) (test code = non-HDL (<130 91 mg/dL <130 mg/dL mg/dL)) TC/HDL ratio (4.5 or less) (test code = TC/HDL 3.0 mg/dL 4 .5 or less ratio (4.5 or less)) 10yr CHD risk (test code = 10yr CHD risk) % test code: 461625 (test code = test code: 521301) CBC W Auto Differential panel - [id number] 10:50:00 Test Item Value Reference Range Comments WBC (test code = WBC) 9.6 K/uL 4.1-10.9 lym% (test code = lym%) 24.3 % 10.0-58.5 lym# (test code = lym#) 2.3 % 0.6-4.1 mxd# (test code = mxd#) 1.0 % 0.0-1.8 mxd% (test code = mxd%) 10.0 % 0.1-24.0 gran (test code = gran) 6.3 % 2.0-7.8 gran% (test code = gran%) 65.7 % 37.0-92.0 RBC (test code = RBC) 4.19 M/uL 4.20-6.30 HGB (test code = HGB) 11.9 g/dL 14.1-18.1 HCT (test code = HCT) 37.0 % 34.5-53.7 MCV (test code = MCV) 88.3 fL 80.0-97.0 MCH (test code = MCH) 28.4 pg 26.0-32.0 MCHC (test code = MCHC) 32.2 g/dL 31.0-36.0 RDW (test code = RDW) 14.4 % 11.5-14.5 plt (test code = plt) 265 K/uL 140-440 MPV (test code = MPV) 8.2 fL 0.0-99.8 CBC W Auto Differential panel - [id number] 10:50:00 Test Item Value Reference Range Comments WBC (test code = WBC) 9.6 K/uL 4.1-10.9 lym% (test code = lym%) 24.3 % 10.0-58.5 lym# (test code = lym#) 2.3 % 0.6-4.1 mxd# (test code = mxd#) 1.0 % 0.0-1.8 mxd% (test code = mxd%) 10.0 % 0.1-24.0 gran (test code = gran) 6.3 % 2.0-7.8 gran% (test code = gran%) 65.7 % 37.0-92.0 RBC (test code = RBC) 4.19 M/uL 4.20-6.30 HGB (test code = HGB) 11.9 g/dL 14.1-18.1 HCT (test code = HCT) 37.0 % 34.5-53.7 MCV (test code = MCV) 88.3 fL 80.0-97.0 MCH (test code = MCH) 28.4 pg 26.0-32.0 MCHC (test code = MCHC) 32.2 g/dL 31.0-36.0 RDW (test code = RDW) 14.4 % 11.5-14.5 plt (test code = plt) 265 K/uL 140-440 MPV (test code = MPV) 8.2 fL 0.0-99.8 Chest X-ray 2 [id number] 16:48:00 Test Item Value Reference Range Comments Result (test code = Result) abnormal CBC W Auto Differential panel - [id number] 15:47:00 Test Item Value Reference Range Comments WBC (test code = WBC) 11.8 K/uL 4.1-10.9 lym% (test code = lym%) 27.3 % 10.0-58.5 lym# (test code = lym#) 3.2 % 0.6-4.1 mxd# (test code = mxd#) 1.9 % 0.0-1.8 mxd% (test code = mxd%) 16.1 % 0.1-24.0 gran (test code = gran) 6.7 % 2.0-7.8 gran% (test code = gran%) 56.6 % 37.0-92.0 RBC (test code = RBC) 3.63 M/uL 4.20-6.30 HGB (test code = HGB) 10.2 g/dL 14.1-18.1 HCT (test code = HCT) 31.3 % 34.5-53.7 MCV (test code = MCV) 86.2 fL 80.0-97.0 MCH (test code = MCH) 28.1 pg 26.0-32.0 MCHC (test code = MCHC) 32.6 g/dL 31.0-36.0 RDW (test code = RDW) 14.2 % 11.5-14.5 plt (test code = plt) 296 K/uL 140-440 MPV (test code = MPV) 7.3 fL 0.0-99.8 CBC W Auto Differential panel - [id number] 09:04:00 Test Item Value Reference Range Comments WBC (test code = WBC) 15.7 K/uL 4.1-10.9 lym% (test code = lym%) 21.9 % 10.0-58.5 lym# (test code = lym#) 3.4 % 0.6-4.1 mxd# (test code = mxd#) 1.6 % 0.0-1.8 mxd% (test code = mxd%) 9.9 % 0.1-24.0 gran (test code = gran) 10.7 % 2.0-7.8 gran% (test code = gran%) 68.2 % 37.0-92.0 RBC (test code = RBC) 3.92 M/uL 4.20-6.30 HGB (test code = HGB) 10.4 g/dL 14.1-18.1 HCT (test code = HCT) 33.3 % 34.5-53.7 MCV (test code = MCV) 84.9 fL 80.0-97.0 MCH (test code = MCH) 26.5 pg 26.0-32.0 MCHC (test code = MCHC) 31.2 g/dL 31.0-36.0 RDW (test code = RDW) 15.5 % 11.5-14.5 plt (test code = plt) 313 K/uL 140-440 MPV (test code = MPV) 7.3 fL 0.0-99.8 Assessments Condition Name Status Diagnosis Date Treating Clinici an Type 2 diabetes mellitus Active 2020-01-05 08:27:10 Essential hypertension Active 2020-01-05 08:27:11 Hyperlipidemia Active 2020-01-05 08:27:12 Incomplete emptying of bladder Active 2020-01-05 09:07: 55 Urinary tract infectious disease Active 2019-11-03 11:3 3:08 Left flank pain Active 2019-11-03 11:27:26 Type 2 diabetes mellitus Active 2019-11-03 11:38:20 Atypical chest pain 2019-10-13 10:50:11 Thoracic back pain Active 2019-10-13 10:51:04 Gastroesophageal reflux disease Active 2019-10-13 11:00 :01 without esophagitis Type 2 diabetes mellitus Active 2019-09-29 09:33:28 Essential hypertension Active 2019-09-29 09:34:12 Hyperlipidemia Active 2019-09-29 09:34:57 Type 2 diabetes mellitus Active 2019-08-11 12:03:19 Hyperlipidemia Active 2019-08-11 12:03:24 Essential hypertension Active 2019-08-11 12:05:09 End stage renal failure on dialysis Active 2019-08-11 1 4:02:23 Gastroesophageal reflux disease Active 2019-08-11 13:51 :45 Chronic constipation Active 2019-08-11 14:03:50 End stage renal disease Active 0 Follow-up encounter Active 2019-02-09 09:57:18 Chronic kidney disease stage 4 Active 2019-02-09 10:43: 38 Essential hypertension Active 2019-02-09 10:43:43 Type 2 diabetes mellitus Active 2019-01-24 14:59:25 Chronic kidney disease stage 4 Active 2019-01-24 14:59: 38 Dyspnea on exertion Active 2019-01-24 14:59:51 Perennial allergic rhinitis with Active 2019-01-24 15:0 2:22 seasonal variation Gastroesophageal reflux disease Active 2019-01-24 15:04 :49 Noncompliance with medication regimen Active 2019-01-24 15:19:54 Persistent cough Active 2019-01-24 16:47:06 Cough Active 2018-08-31 08:47:06 Upper respiratory infection Active 2018-08-31 09:49:43 Noncompliance with treatment Active 2018-08-31 09:53:54 Seasonal allergic rhinitis Active 2018-08-31 09:56:57 Awaiting organ transplant status Unknown Encounter for screening for other Unknown viral diseases Diabetes mellitus without complication Unknown ([facility] Encounters Start End Encounter Admission Attending Care Care Encounter Date/Time Date/Time Type Type Clinicians Facility Department ID 2020-01-05 2020-01-05 [facility] [id number]_ 00:00:00 00:00:00 [facility] [address] Aron Mckeon Medical MD: [address] [place] [address], Ph. 2019-12-27 2019-12-27 Outpatient [facility] [id number] 16:00:00 16:30:00 2019-11-03 2019-11-03 [facility] [id number]_ 00:00:00 00:00:[address] [address], Ph. 2019-10-13 2019-10-13 [facility] [id number] 00:00:00 00:00:00 [facility] [address] Aron Mckeon Medical MD: [address] [place] [address], Ph. 2019-09-29 2019-09-29 [facility] [id number] 00:00:00 00:00:00 [facility] [address] Aron Mckeon Medical MD: [address] [place] [address], Ph. 2019-09-27 2019-09-27 Outpatient [facility] [id number] 00:00:00 00:00:00 2019-08-11 2019-08-11 [facility] [id number]_ 00:00:00 00:00:00 [facility] [address] Aron Mckeon Medical MD: [address] [place] [address], Ph. 2019-08-10 2019-08-10 Outpatient [facility] [id number] 00:00:00 00:00:00 2019-07-14 2019-07-14 Outpatient [facility] [id number] 00:00:00 00:00:00 2019-07-11 2019-07-11 Outpatient [facility] [id number] 00:00:00 00:00:00 2019-06-28 2019-06-28 Outpatient [facility] [id number] 00:00:00 00:00:00 2019-06-20 2019-06-20 Ketan Capone [facility] [id number] 13:57:33 23:59:59 [place] 2019-02-09 2019-02-09 [facility] [id number] 00:00:00 00:00:00 [facility] 821 Replaced By [facility], Medical Medical MD: [address] [place] [address], Ph. 2019-01-24 2019-01-24 [facility] [id number] 00:00:00 00:00:00 [facility] 805 [facility] Medical Medical MD: [address] [place] [address], Ph. 2018-08-31 2018-08-31 [facility] [id number] 00:00:00 00:00:00 [facility] 312 [facility] Medical MD: [address] [place] [address], Ph. Immunizations Ordered Immunization Filled Immunization Date Status Commen ts Refusal Name Name Reason pneumococcal 2015-03-13 Completed conjugate PCV 13 16:48:00 Influenza, 2015-03-13 Completed injectable, MDCK, 16:47:00 preservative free influenza, seasonal, 2014-03-06 Completed injectable 00:00:00 pneumococcal Unknown Completed polysaccharide [id number] Payers Payer Name Policy Type Policy Number Effective Date Expiration D ate Plan of Treatment Planned Activity Planned Date Details Comments Future Scheduled Test [code = ] Future Scheduled Test [code = ] Future Scheduled Test [code = ] Future Scheduled Test [code = ] Future Scheduled Test [code = ] Future Scheduled Test [code = ] Future Scheduled Test [code = ] Future Scheduled Test [code = ] Future Scheduled Test [code = ] Future Scheduled Test [code = ] Future Scheduled Test [code = ] Future Scheduled Test [code = ] Future Scheduled Test [code = ] Future Scheduled Test [code = ] Future Scheduled Test [code = ] Future Scheduled Test [code = ] Future Scheduled Test [code = ] Future Scheduled Test [code = ] Future Scheduled Test [code = ] Future Scheduled Test [code = ] Future Scheduled Test [code = ] Future Scheduled Test [code = ] Future Scheduled Test [code = ] Future Scheduled Test [code = ] Future Scheduled Test [code = ] Future Scheduled Test [code = ] Future Scheduled Test [code = ] Future Scheduled Test [code = ] Future Scheduled Test [code = ] Future Scheduled Test [code = ] Future Scheduled Test [code = ] Social History Smoking Status Start Date Stop Date Never Smoker Vital Signs Vital Name Observation Time Observation Value Comments BP Diastolic 2020-01-05 00:00:00 78 mm[Hg] Height 2020-01-05 00:00:00 63 [in_i] BMI (Body Mass Index) 2020-01-05 00:00:00 28.6 kg/m2 BP Systolic 2020-01-05 00:00:00 153 mm[Hg] Body Weight 2020-01-05 00:00:00 161.6 [lb_av] BP Diastolic 2019-11-03 00:00:00 62 mm[Hg] Height 2019-11-03 00:00:00 63 [in_i] BMI (Body Mass Index) 2019-11-03 00:00:00 28.6 kg/m2 BP Systolic 2019-11-03 00:00:00 130 mm[Hg] Body Weight 2019-11-03 00:00:00 161.4 [lb_av] BP Diastolic 2019-10-13 00:00:00 67 mm[Hg] Height 2019-10-13 00:00:00 63 [in_i] BMI (Body Mass Index) 2019-10-13 00:00:00 29 kg/m2 BP Systolic 2019-10-13 00:00:00 125 mm[Hg] Body Weight 2019-10-13 00:00:00 163.8 [lb_av] BP Diastolic 2019-09-29 00:00:00 66 mm[Hg] Height 2019-09-29 00:00:00 63 [in_i] BMI (Body Mass Index) 2019-09-29 00:00:00 29.6 kg/m2 BP Systolic 2019-09-29 00:00:00 139 mm[Hg] Body Weight 2019-09-29 00:00:00 167 [lb_av] BP Diastolic 2019-08-11 00:00:00 72 mm[Hg] Height 2019-08-11 00:00:00 63 [in_i] BMI (Body Mass Index) 2019-08-11 00:00:00 28.9 kg/m2 BP Systolic 2019-08-11 00:00:00 148 mm[Hg] Body Weight 2019-08-11 00:00:00 163 [lb_av] Body height 2019-06-28 15:00:00 160 cm Body weight 2019-06-28 15:00:00 71 kg BMI 2019-06-28 15:00:00 27.73 kg/m2 BP Diastolic 2019-02-09 00:00:00 57 mm[Hg] Height 2019-02-09 00:00:00 63 [in_i] BMI (Body Mass Index) 2019-02-09 00:00:00 27.1 kg/m2 BP Systolic 2019-02-09 00:00:00 99 mm[Hg] Body Weight 2019-02-09 00:00:00 153.2 [lb_av] BP Diastolic 2019-01-24 00:00:00 70 mm[Hg] Height 2019-01-24 00:00:00 63 [in_i] BMI (Body Mass Index) 2019-01-24 00:00:00 31.2 kg/m2 BP Systolic 2019-01-24 00:00:00 134 mm[Hg] Body Weight 2019-01-24 00:00:00 176.2 [lb_av] BP Diastolic 2018-08-31 00:00:00 79 mm[Hg] Height 2018-08-31 00:00:00 63 [in_i] BMI (Body Mass Index) 2018-08-31 00:00:00 29.2 kg/m2 BP Systolic 2018-08-31 00:00:00 167 mm[Hg] Body Weight 2018-08-31 00:00:00 165 [lb_av] Hospital Discharge Instructions 1. Type 2 diabetes mellitus microalbumin/creatinine, mass ratio, urine Humalog KwikPen (U-100) Insulin 100 unit/mL subcutaneous Toujeo SoloStar U- 300 Insulin 300 unit/mL (1.5 mL) subcutaneous pen lancets Contour Next Test Strips type 2 diabetes: care instructions 2. Essential hypertension CBC w/ auto diff low sodium diet (2,000 milligram): care instructions dash diet: care instructions high blood pressure: care instructions 3. Hyperlipidemia high cholesterol: care instructions lipid panel, blood 4. Incomplete emptying of bladder urinalysis, dipstick amoxicillin 500 mg- potassium clavulanate 125 mg tablet culture, urine urinary tract inf ection in women: care instructions Discussion Note Patient verbalized understanding and agreement with recommended care plan. All questions and concerns were addressed and answered adequately. Follow up visit will address ape1. Type 2 diabetes mellitus learning about type 2 diabetes type 2 diabetes: care instructions HbA1c (hemoglobin A1c), blood FreeStyle Lasha 14 Day Sensor kit FreeStyle Lasha 14 Day [place] 2. Essential hypertension CBC w/ auto diff lipid panel, blood CMP, serum or plasma dash diet: care instructions low sodium diet (2,000 milligram): care instructions high blood pressure: care instructions 3. Hyperlipidemia high cholesterol: care instructions DiscussionNote Patient verbalized understanding and agreement with recommended care plan. All questions and con cerns were addressed and answered adequately. Follow up visit will address gerd, jonas, oa1. Type 2 diabetes mellitus Humalog KwikPen (U-100) Insulin 100 unit/mL subcutaneous ContourTest Strips BD Ultra-Fine Short Pen Needle 31 gauge x 5/16" Toujeo SoloStar U-300 Insulin 300 unit/mL (1.5 mL) subcutaneous pen HbA1c (hemoglobin A1c), blood sudomotor testing of autonomic nervous system function (PROC) 2. Hyperlipidemia learning about type 2 diabetes type 2 diabetes: care instructions high cholesterol: care instructions atorvastatin 40 mg tablet 3. Essential hypertension furosemide 40 mg tablet amlodipine 10 mg tablet isosorbide [id number] mg tablet hydralazine 25 mg tablet CBC w/ auto diff lipid panel, blood CMP, serumor plasma electrocardiogram 4. End stage renal failure on dialysis diet for end-stage renal disease (dialysis): care instructions end-stage renal disease: care instructions 5. Gastroesophageal reflux disease ranitidine 150 mg tablet 6. Chronic constipation Amitiza 24 mcg capsule Discussion Note Patient verbalized understanding and agreement with recommended care plan. All questions and concerns were addressed and answered adequately. Follow up visit will address htn, dm, gerd1. Type 2 diabetes mellitus learning about type 2 diabetes type 2 diabetes: care instructions diabetic ophthalmology referral 2. Chronic kidney disease stage 4 back office medical assistant/dietitian referral CBC w/ auto diff nephrology referral 3. Dyspnea on exertion impedence cardiograph shortness of breath: care instructions 4. Perennial allergic rhinitis with seasonal variation fluticasone propionate 50 mcg/actuation nasal spray,suspension 5. Gastroesophageal reflux disease gastroesophageal reflux disease (GERD): care instructions ranitidine 150 mg tablet 6. Noncompliance with medication regimen 7. Persistent cough XR, chest, 2 view Augmentin 500 mg-125 mg tablet benzonatate 100 mg capsule Discussion Note Patient verbalized understanding and agreement with recommended care plan. All questions and concerns were addressed and answered adequately. Follow up visit will address dm, htn, ckd1. Cough CBC w/ auto diff cough: care instructions XR, chest, 2 view benzonatate 200mg capsule 2. Upper respiratory infection upper respiratory infection (cold): care instructions amoxicillin 875 mg- potassium clavulanate 125 mg tablet 3. Noncompliance with treatment 4. Seasonal allergic rhinitis seasonal allergies: care instructions fluticasone propionate 50 mcg/actuation nasal spray,suspension Discussion Note Patient verbalized understanding and agreement with recommended care plan. All questions and concerns were addressed and answered adequately. Follow up visit will address ape
== END 2020-05-01 17:04 | disposition left against medical advice (07) ==
LOC: ER 13:14
DX: R07.9 Chest pain, unspecified (principal); E78.00 Pure hypercholesterolemia, unspecified; I12.0 Hypertensive chronic kidney disease with stage 5 chronic kidney disease or end stage renal disease; E11.22 Type 2 diabetes mellitus with diabetic chronic kidney disease; N18.6 End stage renal disease; Z99.2 Dependence on renal dialysis
CPT/HCPCS: 71045; 93005; 93010; 99284